=== PATIENT | male | born 1960 | race Caucasian/White ===

== ENCOUNTER 2018-03-16 09:27 | Inpatient (IN) | payer OTHER ==
[2018-03-16 10:17] LABS: Absolute Lymphocytes (CBC) 1.2 K/uL (0.7-4.9); Absolute Neutrophil 13.8 K/uL (1.8-8.0); Basophils % 0.1 % (0-1.3); Hematocrit 46.7 % (39.6-49.0); Lymphocytes % 6.8 % (15.3-44.8); MPV 8.7 fL (7.6-11.3); Monocytes % 11.6 % (3.3-12.3); RBC Red Blood Cell Count 5.16 M/uL (4.33-5.43)
[2018-03-16 10:23] LABS: Protime INR 1.32
--- NOTE | 2018-03-16 10:25 | RAD REPORT ---
EXAM DESCRIPTION: Yulisa Single View03/16/2018 10:15 am CLINICAL HISTORY: Shortness of breath COMPARISON: 2016 FINDINGS: The lungs appear clear of acute infiltrate. A calcified granuloma is present within the l eft lung. The heart is normal size IMPRESSION: No acute abnormalities displayed
[2018-03-16 10:44] LABS: ALT/SGPT 45 U/L (12-78); AST/SGOT 31 U/L (15-37); Albumin 3.6 g/dL (3.4-5.0); Alkaline Phosphatase 91 U/L (45-117); BUN Blood Urea Nitrogen 15 mg/dL (7-18); Bicarbonate 30 mmol/L (21-32); Bilirubin Direct 0.4 mg/dL (0-0.2); Bilirubin Total 1.1 mg/dL (0.2-1.0); Glucose Level 349 mg/dL (74-106); NT PRO-BNP 187 pg/mL (<125); Potassium 4.1 mmol/L (3.5-5.1); Protein, Total 8.3 g/dL (6.4-8.2); Sodium Level 135 mmol/L (136-145); Troponin (Emerg Dept Use Only) < 0.02 ng/mL (0.0-0.045)
[2018-03-16 10:46] LABS: Magnesium 1.4 mg/dL (1.8-2.4)
[2018-03-16] MEDS ORDERED: NA CHLORIDE 0.9% 1,000 ML ONE ×3 (10:50→12:35)
[2018-03-16] MEDS ORDERED: Magnesium Sulfate 2gm IVPB 2 G/50 ML BAG IV ONE (11:05)
[2018-03-16] MEDS ORDERED: INSULIN -REGULAR HUMAN 50 UNIT/0.5 ML ML ONE (11:05)
[2018-03-16] MEDS ORDERED: VANCOMYCIN 1 GM/250 ML BAG ONE (11:05)
[2018-03-16] MEDS ORDERED: CEFEPIME 1 GM/100 ML BAG IV ONE (11:06)
[2018-03-16 11:15] LABS: Urine Bacteria 20-50 /HPF (NONE SEEN); Urine Culture Reflex Order REFLEXED; Urine RBC <5 /HPF (NONE SEEN)
--- NOTE | 2018-03-16 11:39 | EDPHYS ---
Physician Documentation [facility] Name: Salas Srivastava Age: 58 yrs Sex: Male : 1960 Arrival Date: 03/16/2018 Time: 09:31 Bed 19 Private MD: TONIE WATTS ED Physician Casey Chen HPI: 03/16 11:42 This 58 yrs old Male presents to ER via Ambulatory with complaints of Flu jr8 Symptoms. 11:42 Patient stated that he has had fatigue, chills, decreased appetite, and general sense jr8 of not feeling well over the past week. Low grade fevers on/off. Denies CP, SOB, N/V, Abd pain. Stated that he has tried OTC medicine which help in the short term but still not feeling better . Severity of symptoms: At their worst the symptoms were moderate in the emergency department the symptoms are unchanged. It is unknown whether or not the patient has had similar symptoms in the past. The patient has not recently seen a physician. Historical: - Allergies: 09:42 PENICILLINS; ss - Home Meds: 09:42 metformin 1,000 mg Oral tab 1 tab 2 times per day [Active]; Lisinopril Oral [Active]; ss pantoprazole oral oral [Active]; amlodipine oral [Active]; - PMHx: 09:42 COPD; Diabetes - NIDDM; Hypertension; Sleep Apnea; ss - Immunization history:: Adult Immunizations up to date. - Social history:: Smoking status: Patient/guardian denies using tobacco, the patient reports quitting approximately 3 years ago. - Ebola Screening: : Patient denies exposure to infectious person Patient denies travel to an Ebola-affected area in the 21 days before illness onset. ROS: 11:42 Eyes: Negative for injury, pain, redness, and discharge, ENT: Negative for injury, jr8 pain, and discharge, Neck: Negative for injury, pain, and swelling, Cardiovascular: Negative for chest pain, palpitations, and edema, Respiratory: Negative for shortness of breath, cough, wheezing, and pleuritic chest pain, Abdomen/GI: Negative for abdominal pain, nausea, vomiting, diarrhea, and constipation, Back: Negative for injury and pain, MS/Extremity: Negative for injury and deformity, Skin: Negative for injury, rash, and discoloration, Neuro: Negative for headache, weakness, numbness, tingling, and seizure. 11:42 Constitutional: Positive for chills, fatigue, fever, malaise, poor PO intake. Exam: 11:42 Eyes: Pupils equal round and reactive to light, extra-ocular motions intact. Lids and jr8 lashes normal. Conjunctiva and sclera are non-icteric and not injected. Cornea within normal limits. Periorbital areas with no swelling, redness, or edema. ENT: Nares patent. No nasal discharge, no septal abnormalities noted. Tympanic membranes are normal and external auditory canals are clear. Oropharynx with no redness, swelling, or masses, exudates, or evidence of obstruction, uvula midline. Mucous membranes moist. Neck: Trachea midline, no thyromegaly or masses palpated, and no cervical lymphadenopathy. Supple, full range of motion without nuchal rigidity, or vertebral point tenderness. No Meningismus. Respiratory: Lungs have equal breath sounds bilaterally, clear to auscultation and percussion. No rales, rhonchi or wheezes noted. No increased work of breathing, no retractions or nasal flaring. Abdomen/GI: Soft, non-tender, with normal bowel sounds. No distension or tympany. No guarding or rebound. No evidence of tenderness throughout. Back: No spinal tenderness. No costovertebral tenderness. Full range of motion. Skin: Warm, dry with normal turgor. Normal color with no rashes, no lesions, and no evidence of cellulitis. MS/ Extremity: Pulses equal, no cyanosis. Neurovascular intact. Full, normal range of motion. Neuro: Awake and alert, GCS 15, oriented to person, place, time, and situation. Cranial nerves II-XII grossly intact. Motor strength 5/5 in all extremities. Sensory grossly intact. Cerebellar exam normal. Normal gait. 11:42 Cardiovascular: Rate: tachycardic, Rhythm: regular, Pulses: Pulses are 2+ in right radial artery and left radial artery. Heart sounds: normal, normal S1and S2, no S3 or S4, no murmur, no rub, no gallop, Edema: is not appreciated, JVD: is not appreciated. Vital Signs: 09:42 BP 138 / 98; Pulse 125; Resp 22; Temp 98.8(TE); Pulse Ox 90% on R/A; Weight 113.4 kg; ss Height 5 ft. 11 in. (180.34 cm); Pain 4/10; 11:00 BP 133 / 88; Pulse 99; Resp 20; Pulse Ox 94% on 2 lpm NC; Pain 0/10; em 11:21 Temp 99.5(O); em 12:17 BP 120 / 75; Pulse 91; Resp 18; Pulse Ox 95% on 2 lpm NC; Pain 0/10; em 12:57 BP 121 / 79; Pulse 89; Resp 18; Temp 99.2(O); Pulse Ox 96% on 2 lpm NC; Pain 0/10; em 09:42 Body Mass Index 34.87 (113.40 kg, 180.34 cm) ss MDM: 09:46 Patient medically screened. [facility] 11:42 Differential Diagnosis sepsis, flu, UTI, Pneumonia, cellulitis, abdominal infection, jr8 meningitis, bacteremia . Data reviewed: vital signs, nurses notes, lab test result(s), EKG, radiologic studies, plain films, and as a result, I will admit patient. Data interpreted: Pulse oximetry: on 2L(s) per nasal canula, is 94 %. Interpretation: acceptable. Counseling: I had a detailed discussion with the patient and/or guardian regarding: the historical points, exam findings, and any diagnostic results supporting the discharge/admit diagnosis, lab results, radiology results, the need for further work-up and treatment in the hospital. Physician consultation: Josh Stauffer MD was called at 11:46, was contacted at 11:46, regarding admission, to the telemetry unit. consult, patient's condition, and will see patient in ED. ED course: Patient case discussed with patient and need for admission for sepsis secondary to bacteremia without defined cause as of yet. Patient is good with this. . 03/16 09:43 Order name: Flu 03/16 09:45 Order name: Basic Metabolic Panel 03/16 09:45 Order name: CBC with Diff 03/16 09:45 Order name: LFT's 03/16 09:45 Order name: Magnesium 03/16 09:45 Order name: NT PRO-BNP 03/16 09:45 Order name: PT-INR 03/16 09:45 Order name: Troponin (emerg Dept Use Only) 03/16 09:45 Order name: Blood Culture Adult (2) [facility] 03/16 09:46 Order name: Lactate [facility] 03/16 10:21 Order name: CBC with Automated Diff; Complete Time: 10:37 EDMS 03/16 10:24 Order name: Influenza Screen (A ; Complete Time: 10:37 EDMS 03/16 10:40 Order name: Lactate; Complete Time: 10:46 EDMS 03/16 10:45 Order name: Protime (+INR); Complete Time: 10:46 EDMS 03/16 09:45 Order name: XRAY Chest (1 view) [facility] 03/16 10:25 Order name: RAD; Complete Time: 10:37 EDMS 03/16 10:46 Order name: Basic Metabolic Panel; Complete Time: 10:47 EDMS 03/16 10:46 Order name: Liver (Hepatic) Function; Complete Time: 10:47 EDMS 03/16 10:46 Order name: Troponin (Emerg Dept Use Only); Complete Time: 10:47 EDIN 03/16 10:46 Order name: NT PRO-BNP; Complete Time: 10:47 EDMS 03/16 10:46 Order name: Magnesium; Complete Time: 10:47 EDIN 03/16 10:46 Order name: Urine Microscopic Only [facility] 03/16 10:48 Order name: Procalcitonin [facility] 03/16 11:08 Order name: Urine Dipstick--Ancillary (enter results) 03/16 11:15 Order name: Urine Microscopic Only; Complete Time: 11:16 EDIN 03/16 11:32 Order name: Procalcitonin; Complete Time: 11:34 [facility] 03/16 11:56 Order name: Urine Dipstick-Ancillary; Complete Time: 11:59 03/16 09:45 Order name: EKG; Complete Time: 09:47 [facility] 03/16 09:45 Order name: Cardiac monitoring; Complete Time: 10:11 03/16 09:45 Order name: EKG - Nurse/Tech; Complete Time: 10:12 03/16 09:45 Order name: IV Saline Lock; Complete Time: 10:11 03/16 09:45 Order name: Labs collected and sent; Complete Time: 10:11 03/16 09:45 Order name: O2 Per Protocol; Complete Time: 10:11 01/25 09:45 Order name: O2 Sat Monitoring; Complete Time: Administered Medications: 10:42 Drug: NS 0.9% 1000 ml Route: IV; Rate: 1000 ml; Site: right wrist; ss 11:48 Follow up: IV Status: Completed infusion; IV Intake: 1000ml em 11:05 Drug: NS 0.9% 1000 ml Route: IV; Rate: 1000 ml; Site: right wrist; em 12:20 Follow up: IV Status: Completed infusion; IV Intake: 1000ml em 11:05 Drug: Magnesium Sulfate 2 grams Route: IVPB; Infused Over: 2 hrs; Site: right wrist; em 12:13 Follow up: Response: No adverse reaction; IV Status: Completed infusion; IV Intake: em 100ml 11:07 Drug: Insulin Regular Human 10 units {Co-Signature: em (Hussain Silva LVN).} Route: ss Sub-Q; Site: left lower abdomen; 12:12 Follow up: Response: No adverse reaction em 11:20 Drug: Cefepime 1 grams Route: IVPB; Rate: 200 ml/hr; Infused Over: 30 mins; Site: left em forearm; 11:48 Follow up: Response: No adverse reaction; IV Status: Completed infusion; IV Intake: em 100ml 11:48 Drug: Tylenol 1000 mg Route: PO; em 12:12 Follow up: Response: No adverse reaction em 12:12 Drug: vancoMYCIN 1 grams Route: IVPB; Infused Over: 2 hrs; Site: right wrist; em 12:34 Drug: NS 0.9% 1000 ml Route: IV; Rate: 1 bolus; Site: right wrist; em 13:00 Follow up: IV Status: Infusion continued upon admission; IV Intake: 500ml em Point of Care Testing: Blood Glucose: 12:57 Blood Glucose: 248 mg/dL; em Ranges: Critical Glucose Levels:Adult <50 mg/dl or >400 mg/dl <40 mg/dl or >180 mg/dl Disposition: 16:46 Co-signature as Attending Physician, Casey Chen MD. ma2 Disposition: 03/16/18 11:39 Hospitalization ordered by Josh Stauffer for Inpatient Admission. Preliminary diagnosis is Sepsis . - Bed requested for Telemetry/MedSurg (Inpatient). - Status is Inpatient Admission. em - Condition is Stable. - Problem is new. - Symptoms have improved. UTI on Admission? Yes Critical care time excluding procedures: 11:47 Critical care time: Bedside Care: 20 minutes, Consultation: 10 minutes. Total time: 30 jr8 minutes Signatures: Dispatcher [employer] NKECHI Silva, Hussain, SAMPLE TESTER SAMPLE TESTER em Sonia De La O, MIGUELITO RN ss Toby Rey PA PA jr8 Casey Chen MD MD ma2 Nikia Dowling Hussain Silva SAMPLE TESTER em Corrections: (The following items were deleted from the chart) 12:21 11:39 Hospitalization Ordered by Josh Stauffer MD for Inpatient Admission. Preliminary eb diagnosis is Sepsis . Bed requested for Telemetry/MedSurg (Inpatient). Status is Inpatient Admission. Condition is Stable. Problem is new. Symptoms have improved. UTI on Admission? Yes. jr8 13:24 12:21 03/16/2018 11:39 Hospitalization Ordered by Jsoh Stauffer MD for Inpatient em Admission. Preliminary diagnosis is Sepsis . Bed requested for Telemetry/MedSurg (Inpatient). Status is Inpatient Admission. Condition is Stable. Problem is new. Symptoms have improved. UTI on Admission? Yes. eb
--- NOTE | 2018-03-16 11:39 | ER ---
Nurse's Notes [facility] Name: Salas Srivastava Age: 58 yrs Sex: Male : 1960 Arrival Date: 03/16/2018 Time: 09:31 Bed 19 Private MD: TONIE WATTS Diagnosis: Sepsis Presentation: 03/16 09:39 Presenting complaint: Patient states: "I think I have the flu". Pt reports body aches, ss fatigue and fever x 6 days. Transition of care: patient was not received from another setting of care. Onset of symptoms was March 10, 2018. Risk Assessment: Do you want to hurt yourself or someone else? Patient reports no desire to harm self or others. Initial Sepsis Screen: Does the patient meet any 2 criteria? No. Patient's initial sepsis screen is negative. Does the patient have a suspected source of infection? No. Patient's initial sepsis screen is negative. Care prior to arrival: None. 09:39 Method Of Arrival: Ambulatory ss 09:39 Acuity: ESVIN 2 ss Historical: - Allergies: 09:42 PENICILLINS; ss - Home Meds: 09:42 metformin 1,000 mg Oral tab 1 tab 2 times per day [Active]; Lisinopril Oral [Active]; ss pantoprazole oral oral [Active]; amlodipine oral [Active]; - PMHx: 09:42 COPD; Diabetes - NIDDM; Hypertension; Sleep Apnea; ss - Immunization history:: Adult Immunizations up to date. - Social history:: Smoking status: Patient/guardian denies using tobacco, the patient reports quitting approximately 3 years ago. - Ebola Screening: : Patient denies exposure to infectious person Patient denies travel to an Ebola-affected area in the 21 days before illness onset. Screenin:00 Abuse screen: Denies threats or abuse. Nutritional screening: No deficits noted. ss Tuberculosis screening: No symptoms or risk factors identified. Fall Risk None identified. Assessment: 09:51 General: Appears in no apparent distress. uncomfortable, Behavior is calm, cooperative, em Reports chills for >3 days, feeling ill for > 3 days. Pain: Denies pain. Neuro: Level of Consciousness is awake, alert, obeys commands, Oriented to person, place, time, situation. Cardiovascular: Denies chest pain. Respiratory: Reports shortness of breath on exertion Airway is patent Respiratory effort is even, unlabored, Respiratory pattern is regular, symmetrical, Breath sounds are clear bilaterally. Derm: Skin is intact, Skin is diaphoretic, Skin is pale. Musculoskeletal: Range of motion: intact in all extremities. Vital Signs: 09:42 BP 138 / 98; Pulse 125; Resp 22; Temp 98.8(TE); Pulse Ox 90% on R/A; Weight 113.4 kg; ss Height 5 ft. 11 in. (180.34 cm); Pain 4/10; 11:00 BP 133 / 88; Pulse 99; Resp 20; Pulse Ox 94% on 2 lpm NC; Pain 0/10; em 11:21 Temp 99.5(O); em 12:17 BP 120 / 75; Pulse 91; Resp 18; Pulse Ox 95% on 2 lpm NC; Pain 0/10; em 12:57 BP 121 / 79; Pulse 89; Resp 18; Temp 99.2(O); Pulse Ox 96% on 2 lpm NC; Pain 0/10; em 09:42 Body Mass Index 34.87 (113.40 kg, 180.34 cm) ED Course: 09:31 Patient arrived in ED. sb2 09:31 TONIE WATTS is Private Physician. sb2 09:40 Triage completed. ss 09:42 Arm band placed on right wrist. ss 09:44 Sonia De La O, MIGUELITO is Primary Nurse. ss 09:46 Toby Rey PA is PHCP. jr8 09:46 Casey Chen MD is Attending Physician. jr8 09:50 Flu and/or RSV swab sent to lab. 3 10:00 Patient has correct armband on for positive identification. Placed in gown. Bed in low ss position. Call light in reach. Side rails up X2. dark room attendant on. Pulse ox on. NIBP on. 10:04 Initial lab(s) drawn, by me, sent to lab. First set of blood cultures drawn by me. 3 Inserted saline lock: 20 gauge in right forearm, using aseptic technique. Blood collected. 10:24 EKG done, by game technician. reviewed by Toby SHAH. at1 11:02 Urine collected: clean catch specimen, tea colored. dh3 11:38 Josh Stauffer MD is Hospitalizing Provider. jr8 13:21 No provider procedures requiring assistance completed. Patient admitted, IV remains in em place. Administered Medications: 10:42 Drug: NS 0.9% 1000 ml Route: IV; Rate: 1000 ml; Site: right wrist; ss 11:48 Follow up: IV Status: Completed infusion; IV Intake: 1000ml em 11:05 Drug: NS 0.9% 1000 ml Route: IV; Rate: 1000 ml; Site: right wrist; em 12:20 Follow up: IV Status: Completed infusion; IV Intake: 1000ml em 11:05 Drug: Magnesium Sulfate 2 grams Route: IVPB; Infused Over: 2 hrs; Site: right wrist; em 12:13 Follow up: Response: No adverse reaction; IV Status: Completed infusion; IV Intake: em 100ml 11:07 Drug: Insulin Regular Human 10 units {Co-Signature: em (Hussain Silva LVN).} Route: ss Sub-Q; Site: left lower abdomen; 12:12 Follow up: Response: No adverse reaction em 11:20 Drug: Cefepime 1 grams Route: IVPB; Rate: 200 ml/hr; Infused Over: 30 mins; Site: left em forearm; 11:48 Follow up: Response: No adverse reaction; IV Status: Completed infusion; IV Intake: em 100ml 11:48 Drug: Tylenol 1000 mg Route: PO; em 12:12 Follow up: Response: No adverse reaction em 12:12 Drug: vancoMYCIN 1 grams Route: IVPB; Infused Over: 2 hrs; Site: right wrist; em 12:34 Drug: NS 0.9% 1000 ml Route: IV; Rate: 1 bolus; Site: right wrist; em 13:00 Follow up: IV Status: Infusion continued upon admission; IV Intake: 500ml em Point of Care Testing: Blood Glucose: 12:57 Blood Glucose: 248 mg/dL; em Ranges: Intake: 11:48 IV: 100ml; Total: 100ml. em 11:48 IV: 1000ml; Total: 1100ml. em 12:13 IV: 100ml; Total: 1200ml. em 12:20 IV: 1000ml; Total: 2200ml. em 13:00 IV: 500ml; Total: 2700ml. em Outcome: 11:39 Decision to Hospitalize by Provider. jr8 13:21 Admitted to Med/surg accompanied by tech, via wheelchair, room 230, with oxygen, with em chart, Report called to MIGUELITO Damico 13:21 Condition: good 13:21 Instructed on the need for admit, Demonstrated understanding of instructions. 13:24 Patient left the ED. em Signatures: Hussain Silva LVN PNEUMATIC TUBE FITTER em Sonia De La O RN RN ss Toby Rey, PABLO PA jr8 Marylu Anderson, rib cutter EKG Tat1 Lotus Anderson 3 Adenike Bustillos 2 Hussain WADEN em
[2018-03-16] MEDS ORDERED: ACETAMINOPHEN 500 MG TAB ONE (11:48)
--- NOTE | 2018-03-16 11:52 | EKG ---
Test Date: 2018-03-16 Test Time: 10:13:02 Color Depositing Machine Tender: MIKE MEASUREMENT RESULTS: Intervals: Rate: 109 NV: 136 QRSD: 154 QT: 366 QTc: 492 [place]: P: 72 NV: 136 QRS: -86 T: 55 INTERPRETIVE STATEMENTS: Sinus tachycardia Right bundle branch block Left anterior fascicular block Bifascicular block Abnormal ECG Compared to ECG 08/08/2015 00:03:49 Left anterior fascicular block now present Bifascicular block now present Ventricular premature complex(es) no longer present Left-axis deviation no longer present Electronically Signed On 03-16-18 11:51:11 AUTO TOP MECHANIC by Marco Antonio Armando
[2018-03-16 11:56] LABS: Urine Blood 1+ (NEG); Urine Glucose 2+ (NEG); Urine Protein 3+ (NEG)
[2018-03-16] MEDS ORDERED: VANCOMYCIN/NS 1 gm 1 GM/250 ML BAG IVPB SCH (13:06)
[2018-03-16] MEDS ORDERED: VANCOMYCIN 2.75 GM in NA CHLORIDE 0.9% 500 ML IVPB ONE (14:00)
[2018-03-16 14:12] VITALS: BMI 35.4
[2018-03-16] MEDS: NA CHLORIDE 0.9% 1,000 ML IV SCH ×2 (14:33→21:50)
[2018-03-16] MEDS ORDERED: GLUCAGON 1 MG/VIAL IM PRN (15:36)
[2018-03-16] MEDS ORDERED: D50W 25 GM/50 ML SYRINGE IV PRN (15:36)
[2018-03-16] MEDS ORDERED: PNEUMOCOCCAL VACCINE 0.5 ML IMVAC ONE (16:00)
[2018-03-16] MEDS ORDERED: INFLUENZA VACCINE (for 3y+) 0.5 ML DOSE IMVAC ONE (16:00)
--- NOTE | 2018-03-16 16:23 | P.INFCA ---
Sepsis Focused Assessment - Sepsis Screen Result Severe Sepsis: Positive Septic Shock: Negative - Vital Signs Reviewed: Yes Temperature: 99.1 F Heart rate: 92 Blood Pressure: 146/85 Respiratory Rate: 18 O2 Sat by Pulse Oximetry: 96 - Examination Date exam was performed: 03/16/18 Time exam was performed: 16:19 Heart: Regular rate/rhythm, S1, S2 Lungs: Decreased breath sounds, Accessory muscle use Peripheral pulses: 2+ Slightly diminished Peripheral pulse location: Pedal Capillary refill: <2 Seconds Skin examination: Normal turgor
[2018-03-16] MEDS: INSULIN -REGULAR HUMAN 50 UNIT/0.5 ML ML SQ SCH ×2 (16:30→21:46)
[2018-03-16] MEDS: ACETAMINOPHEN 500 MG TAB PO PRN ×2 (16:32→23:35)
[2018-03-16] MEDS: PANTOPRAZOLE 40MG TABLET PO SCH (16:33)
[2018-03-16] MEDS: IPRATROPIUM BROM 0.5MG/2.5ML NEB PRN (20:15)
[2018-03-16] MEDS ORDERED: CEFEPIME 2 GM VIAL IV SCH (21:00)
[2018-03-17] MEDS: IPRATROPIUM BROM 0.5MG/2.5ML NEB PRN ×4 (01:35→20:45)
--- NOTE | 2018-03-17 02:40 | HP ---
Date of Admission: 03/16/2018 Chief Complaint: Shortness of breath, fatigue. Code Status: Full. Consultants: Dr. Carranza with Pulmonology. History Of Present Illness: The patient is a 58-year-old male with past medical history of COPD, oxy gen dependent; diabetes; hypertension; obstructive sleep apnea; gastroesophageal reflux disease; who was in his usual state of health until several days prior to admission when the patient had sudden on set of fatigue, decreased appetite, having chills, feeling like he has flu. The patient denies any i ll contacts. The patient's symptoms were constant, moderate, progressively worsening. No increased shortness of breath. No cough. No sputum production. The patient came in to the ER for further alton luation of his symptoms. Denies any weight loss. In the ER, his vital signs showed him to be tachyc ardic and tachypneic. He was 90% on room air. His workup revealed magnesium of 1.4. Procalcitonin was elevated at 11.7. Lactic acid was 2.1. WBC was elevated at 16.9. UA was positive for bacteria. Chest x-ray, however, was negative for any infiltrates. The patient was then referred for admissio n. When seen in the ER, he was awake, alert, oriented x3, in some mild distress. Past Medical History: COPD; hypertension; hyperlipidemia; diabetes mellitus type 2, qld-[id number]-lktr iring; obstructive sleep apnea, on CPAP; and morbid obesity. Surgical History: Exploratory laparotomy in 1967. Allergies: PENICILLIN. Medications: List reviewed. Social History: The patient quit smoking in 2016. No use of alcohol. No illicit drug use. The pat ient is independent in his activities of daily living. Family History: The patient denies any significant family history. No premature coronary artery dis ease. Review of Systems: An 11-point system reviewed and negative except as per HPI. Physical Examination: Vital Signs: Temperature 98.8, heart rate 125, blood pressure 138/98, respirations 22, and O2 of 90% on room air. General: Awake, alert, oriented x3, ill-appearing male, obese. HEENT: Normocephalic, atraumatic. PERRLA. EOMI. Dry mucous membranes. Oropharynx is clear. Poor dentition. Conjunctivae are anicteric. Neck: Supple. No JVD. Trachea midline. CV: S1, S2. Sinus tachycardia. Peripheral pulses present. No murmurs. Respiratory: Diminished breath sounds. No wheezing heard. The patient is tachypneic. Use of acces rishi muscles is present. Gastrointestinal: Abdomen is soft, nontender, nondistended. Positive bowel sounds. No guarding or rigidity. Extremities: No clubbing, cyanosis, or edema. No calf tenderness. Neurologic: Cranial nerves 2 through 12 intact grossly. No focal neurological deficit. Speech is n ormal. Strength is 5/5, bilateral upper and lower extremities. Sensation intact to light touch. Skin: No rashes. Normal skin turgor. Psychiatric: Mood is okay. Affect is full. Insight and judgment are good. Laboratory Data: Sodium 135, potassium 4.1, chloride 97, CO2 of 30, BUN 15, creatinine 1.26, and glu cose 349. Lactic acid 2.1. Repeat lactic acid is 1.9, calcium 9.2, magnesium 1.4, total bilirubin 1 .1, direct bilirubin 0.4, AST 31, ALT 45, and alkaline phosphatase 91. Troponin less than 0.02. BNP 187, albumin 3.6, procalcitonin 11.7. INR 1.32. WBC 16.9, H and H 15.7 and 46.7, platelets 207, an d neutrophils 81%. UA; 1+ ketone, 1+ blood, negative nitrite, negative leukocyte esterase, less than 5 wbc's, less than 5 rbc's, 20 to 50 bacteria, and 3+ protein. Influenza screen negative. EKG show s sinus tachycardia, right bundle-branch block, left anterior fascicular block, bifascicular block, r ate of 109. Assessment And Plan: A 58-year-old male with; 1.Sepsis. The patient is tachycardic, rate of 125, respirations 22. White count is elevated at 16, 000. Procalcitonin is 11. Lactate is elevated. Source of infection is unclear, maybe urinary tract infection or possible early pneumonia. The patient has received 30 mL/kg fluid bolus. The patient will be started on broad-spectrum IV antibiotics. Largely unknown source. We will obtain almanzar cultur es. 2.Chronic obstructive pulmonary disease, oxygen requiring. The patient does sound very tight. We w ill start on nebulizer treatments. 3.Hby-lzmgloh-pkubzavbb diabetes mellitus type 2 with hyperglycemia. We will start on sliding scale with insulin. 4.Essential hypertension, stable. We will hold blood pressure medications for now due to sepsis. 5.Mixed hyperlipidemia. Continue statin. 6.Obstructive sleep apnea. We will have Respiratory give him CPAP at night. The patient is unable to have his CPAP from home brought in. 7.Obesity, body mass index greater than 30. 8.Hypomagnesemia. We will replace and monitor. 9.Gastrointestinal and deep venous thrombosis prophylaxis with PPI and Lovenox. Plan: Admit the ruperto manuelingris to Med-Surg, place as inpatient with remote cardiac telemetry. 10.Bifascicular block. /SUREKHA Voice ID: [id number]
[2018-03-17] MEDS: NA CHLORIDE 0.9% 1,000 ML IV SCH ×2 (05:29→10:00)
[2018-03-17 06:09] LABS: Potassium 4.1 mmol/L (3.5-5.1)
[2018-03-17] MEDS: INSULIN -REGULAR HUMAN 50 UNIT/0.5 ML ML SQ SCH ×4 (07:30→21:58)
[2018-03-17] MEDS: ACETAMINOPHEN 500 MG TAB PO PRN ×2 (08:10→17:31)
[2018-03-17] MEDS: PANTOPRAZOLE 40MG TABLET PO SCH ×2 (08:10→17:31)
[2018-03-17] MEDS: VANCOMYCIN 2 GM in NA CHLORIDE 0.9% 500 ML IVPB SCH (08:11)
--- NOTE | 2018-03-17 10:49 | P.CNS ---
Date of Consult: 03/17/18 Chief Complaint: Fever and chills History of Present Illness: Patient is 52 years of age well known to me with a history of COPD he has been doing very well for the past couple of years apparently he was at [employer] developed sudden onset of fever chills continued to get progressively worse denies any cough sputum hemoptysis chest pain worsening shortness of breath he has a mild diarrhea denies any urinary tract symptoms admitted to the hospital he looks well he has been having a borderline temperature although is influenza A and B screen were both negative blood cultures are all negative is chest x-rays clear Allergies Penicillins Adverse Reaction (Severe, Verified 08/09/15 00:10) Anaphylaxis Home Medications: Metformin HCl [Glucophage] 1,000 mg PO BID 08/01/15 Pantoprazole [Protonix Tab*] 40 mg PO BID #60 tab 08/13/15 Amlodipine [Norvasc] 10 mg PO DAILY 03/16/18 Lisinopril [Prinivil*] 5 mg PO DAILY 03/16/18 - Past Medical/Surgical History Diabetic: Yes -: COPD, Oxygen dependent -: DM-2 -: HTN -: Hyperlipidemia -: RACHEL, Compliant with RACHEL -: Obesity -: Tobacco abuse, Quit recently. -: Bowel surgery due to infection 1967 -: Stomach Surgery Nov 2015 -: Colonoscopy 2015 Psychosocial/ Personal History: disabled, -31 years, 4 children - Family History Mother Medical History: Heart disease, Hypertension, Diabetes - Social History Smoking Status: Unknown if ever smoked Alcohol use: No CD- Drugs: No Caffeine use: Yes Place of Residence: Home Review of Systems 10-point ROS is otherwise unremarkable Physical Examination Temp Pulse Resp BP Pulse Ox 97 F 91 H 20 138/78 99 03/17/18 08:00 03/17/18 08:00 03/17/18 08:00 03/17/18 08:00 03/17/18 08:00 General: Alert, In no apparent distress, Oriented x3 Neck: Supple Respiratory: Clear to auscultation bilaterally, Diminished Cardiovascular: No edema, Regular rate/rhythm, Normal S1 S2 Gastrointestinal: Normal bowel sounds, Soft and benign - Problems (1) Fever and chills Current Visit: Yes Status: Acute Plan: Patient is 58 years of age with a history of COPD compliant and is doing very well has not had an exacerbation for the past few years he also has a noninvasive vent at home patient has quit smoking a long time ago admitted with sudden onset of fever and chills chest x-rays clear white count is mildly elevated pro calcitonin level is also elevated blood cultures are negative urinalysis is negative there is no abdominal discomfort he is not coughing up any appears to have sepsis with no obvious reason suggest TB change to p.o. levofloxacin repeat a PA and lateral chest x-ray possible discharge tomorrow to resume his home medications
[2018-03-17] MEDS: CEFEPIME/SWI 2gm 2 GM/20 ML SYR IV SCH ×2 (10:52→21:59)
--- NOTE | 2018-03-17 15:49 | RAD REPORT ---
EXAM DESCRIPTION: RAD - Chest Pa And Lat (2 Views) - 03/17/2018 3:30 pm CLINICAL HISTORY: Pneumonia, shortness of breath COMPARISON: March 16 TECHNIQUE: PA and lateral views of the chest were obtained. FINDINGS: The lungs are clear of a focal infiltrate. No new or progressive lung parenchymal process. Left base granuloma has not changed. Heart size is normal and central vasculature is within normal limits. No pleural effusion or pneumothorax seen. No acute bony finding noted. No aortic abnormal ity. IMPRESSION: No acute cardiopulmonary process. No new or progressive finding.
--- NOTE | 2018-03-17 17:12 | PN ---
Date of Progress Note: 03/17/2018 Subjective: The patient seen and examined. Chart reviewed and case discussed with RN and Dr. Janie montero. The patient states his breathing is significantly better. Overall feels improved. Medications: List reviewed. Physical Examination: Vital Signs: Temperature 97, heart rate 91, blood pressure 138/70, respirations 20, O2 99% on 2 L vi a nasal cannula. General: Awake, alert, oriented x3, obese male, slightly ill appearing. CV: S1, S2. Regular rate and rhythm. Peripheral pulses present. Respiratory: Diminished breath sounds. Minimal wheezing. No use of accessory muscles. Gastrointestinal: Abdomen is soft, nontender, nondistended. Positive bowel sounds. Extremities: No clubbing, cyanosis, or edema. Neurologic: Nonfocal. Laboratory Data: Potassium 4.1, magnesium is 2. Blood cultures no growth to date. Urine culture no growth. Assessment: A 58-year-old male with: 1.Sepsis, improving. The patient is not tachycardic, afebrile. Last temperature spike was 101.6 ye sterday afternoon. Cultures are negative. We will continue with IV fluids. We will decrease rate a nd follow up on cultures. 2.Chronic obstructive pulmonary disease, oxygen dependent. We will continue with nebulizer treatmen ts. 3.Diabetes mellitus type 2 non-insulin requiring with hyperglycemia. We will continue on sliding sc zachary insulin. Appreciate Dr. Carranza's input. 4.Essential hypertension, stable. 5.Mixed hyperlipidemia. Continue statin. 6.Obstructive sleep apnea. Continue CPAP at night. 7.Obesity. BMI greater than 30. 8.Hypomagnesemia, replaced. 9.Hypokalemia, corrected. We will continue to monitor. 10.Bifascicular block. 11.Gastrointestinal and deep venous thrombosis prophylaxis with PPI and Lovenox. Plan: Likely discharge in a.m. Repeat chest x-ray, CBC, CMP. SA/MODL Voice ID: [id number] Report ID: [id number]
[2018-03-18] MEDS: VANCOMYCIN 2 GM in NA CHLORIDE 0.9% 500 ML IVPB SCH (01:27)
[2018-03-18] MEDS: NA CHLORIDE 0.9% 1,000 ML IV SCH (01:27)
[2018-03-18] MEDS: ACETAMINOPHEN 500 MG TAB PO PRN (01:31)
[2018-03-18] MEDS: IPRATROPIUM BROM 0.5MG/2.5ML NEB PRN ×2 (02:16→07:36)
[2018-03-18 05:35] LABS: Absolute Lymphocytes (CBC) 0.9 K/uL (0.7-4.9); Absolute Monocytes 0.8 K/uL (0.1-1.3); Absolute Neutrophil 6.1 K/uL (1.8-8.0); Basophils % 0.2 % (0-1.3); Eosinophils % 1.4 % (0-4.4); Hematocrit 40.8 % (39.6-49.0); Lymphocytes % 11.4 % (15.3-44.8); MPV 8.8 fL (7.6-11.3); Monocytes % 10.2 % (3.3-12.3); RBC Red Blood Cell Count 4.43 M/uL (4.33-5.43)
[2018-03-18 06:00] LABS: BUN Blood Urea Nitrogen 12 mg/dL (7-18); Bicarbonate 30 mmol/L (21-32); Glucose Level 197 mg/dL (74-106); Potassium 4.1 mmol/L (3.5-5.1); Sodium Level 141 mmol/L (136-145)
[2018-03-18] MEDS: INSULIN -REGULAR HUMAN 50 UNIT/0.5 ML ML SQ SCH (07:30)
[2018-03-18] MEDS: PANTOPRAZOLE 40MG TABLET PO SCH (09:01)
[2018-03-18] MEDS: CEFEPIME/SWI 2gm 2 GM/20 ML SYR IV SCH (09:01)
[2018-03-18 09:03] VITALS: BP 145/86; TEMP 97.6
[2018-03-18 10:26] VITALS: O2SAT 97
--- NOTE | 2018-03-19 04:05 | DS ---
Date of Discharge: 03/18/2018 Admitting Diagnoses: 1.Sepsis. 2.Chronic obstructive pulmonary disease. 3.Wka-xtfbgvt-kmadthgxl diabetes, type 2 with hyperglycemia. 4.Essential hypertension. 5.Mixed hyperlipidemia. 6.Obstructive sleep apnea. 7.Obesity. 8.Hypomagnesemia. 9.Bifascicular block. 10.Urinary tract infection. Discharge Diagnoses: 1.Sepsis. 2.Bacteriuria, urinary tract infection. 3.Chronic obstructive pulmonary disease. 4.Acute bronchitis. 5.Diabetes mellitus, type 2, non-insulin requiring with hyperglycemia. 6.Essential hypertension. 7.Mixed hyperlipidemia, statin. 8.Obstructive sleep apnea. 9.Obesity, body mass index greater than 30. 10.Hypomagnesemia, replaced. 11.Hypokalemia, corrected. 12.Bifascicular block. Hospital Course: The patient is a 58-year-old male with a past medical history of COPD that is oxyge n dependent, diabetes, hypertension, sleep apnea, GERD, comes in with fever, chills, flu-like symptom s. The patient was found to be tachycardic, tachypneic, hypoxic on room air. His white blood cell c ount was 16.9. UA was positive for bacteria. Chest x-ray was negative. He was felt to be septic. White count was 16.9. He was tachycardic and tachypneic. Source of infection was bacteriuria and ac rah bronchitis. The patient was started on IV antibiotics. He was given fluid bolus per sepsis prot ocol. Procalcitonin was elevated at 11 and lactate was also elevated at 2.1, improved to 1.9. The p atient responded well to IV antibiotics. His white blood cell count normalized. He did have some el ectrolyte abnormalities, which were corrected including magnesium. Cultures were obtained, which andreina wed gram-positive cocci, 1 out of 4 bottles, which was likely a skin contaminant. The patient's seps is improved. His influenza screen was negative. His urine culture showed no growth. The patient wa s seen by job specification writer, Dr. Carranza. His repeat chest x-ray showed improvement. The patient was f eeling significantly better. He did not have any further fatigue, chills, or fever. He was then amb ulating well around his baseline. He was very limited in his mobility, able to get to the bathroom, and back to his bed. The patient was then stable for discharge and was cleared for discharge by Pulm onology. Discharge Instructions: Follow up with PCP in two days. Follow up with job specification writer, Dr. Carranza in two weeks. Return to ER for worsening condition. Diet: Diabetic diet. Activity: No strenuous activity. Medications: As per medication reconciliation list. Finish up the course of Levaquin. Physical Examination: General: Awake, alert, oriented x3. Obese male. CV: S1 and S2. Regular rate and rhythm. Respiratory: Diminished breath sounds. No wheezing. Gastrointestinal: Abdomen is soft, nontender, nondistended. Positive bowel sounds. Extremities: No clubbing, cyanosis, or edema. Neuro: Nonfocal. Total time spent discharging the patient was 33 minutes. MERCEDES Voice ID: [id number] Report ID: [id number]
== END 2018-03-18 11:49 | disposition home or self-care (01) | DRG 872 ==
LOC: ER 09:27 → ERHOLD 11:53 → 2ND 13:06
PROVIDERS: ADMIT Family Medicine; ATTEND Family Medicine
DX: A41.9 Sepsis, unspecified organism (principal); N39.0 Urinary tract infection, site not specified; E11.65 Type 2 diabetes mellitus with hyperglycemia; E83.42 Hypomagnesemia; E87.6 Hypokalemia; J20.9 Acute bronchitis, unspecified; E78.2 Mixed hyperlipidemia; I10 Essential (primary) hypertension; J44.9 Chronic obstructive pulmonary disease, unspecified; K21.9 Gastro-esophageal reflux disease without esophagitis; G47.33 Obstructive sleep apnea (adult) (pediatric); E66.9 Obesity, unspecified; Z68.35 Body mass index [BMI] 35.0-35.9, adult; Z99.81 Dependence on supplemental oxygen; Z23 Encounter for immunization
CPT/HCPCS: 36415; 71045; 71046; 80048; 80076; 81003; 81015; 82962; 83605; 83735; 83880; 84132; 84145; 84484; 85025; 85610; 87040; 87086; 87088; 87205; 87804; 90670; 93005; 94640; 94760; 96372; 99285; G0008; G0009; J0692; J3370; J3475; J7030; Q2035

== ENCOUNTER 2018-04-03 12:04 | Observation (INO) | payer OTHER ==
--- NOTE | 2018-04-03 13:53 | RAD REPORT ---
EXAM DESCRIPTION: RAD - Chest Single View - 04/03/2018 1:48 pm CLINICAL HISTORY: COPD Chest pain. COMPARISON: Chest Pa And Lat (2 Views) dated 03/17/2018; Chest Single View dated 03/16/2018; Chest Sin gle View dated 08/07/2015; Chest Single View dated 08/01/2015 FINDINGS: Portable technique limits examination quality. The lungs are grossly clear except for a calcified granuloma in the left lung base laterally. The hea rt is normal in size. No displaced fractures. IMPRESSION: No acute intrathoracic process suspected.
[2018-04-03 13:57] LABS: Absolute Lymphocytes (CBC) 2.1 K/uL (0.7-4.9); Absolute Monocytes 1.5 K/uL (0.1-1.3); Absolute Neutrophil 10.9 K/uL (1.8-8.0); Basophils % 0.6 % (0-1.3); Eosinophils % 0.4 % (0-4.4); Hematocrit 45.8 % (39.6-49.0); Lymphocytes % 14.4 % (15.3-44.8); MPV 8.7 fL (7.6-11.3); RBC Red Blood Cell Count 5.03 M/uL (4.33-5.43)
[2018-04-03 14:04] LABS: Protime INR 1.13
[2018-04-03] MEDS ORDERED: NA CHLORIDE 0.9% 1,000 ML ONE (14:12)
[2018-04-03 14:23] LABS: ALT/SGPT 28 U/L (12-78); AST/SGOT 18 U/L (15-37); Albumin 3.6 g/dL (3.4-5.0); Alkaline Phosphatase 94 U/L (45-117); BUN Blood Urea Nitrogen 13 mg/dL (7-18); Bicarbonate 30 mmol/L (21-32); Bilirubin Direct 0.2 mg/dL (0-0.2); Bilirubin Total 0.6 mg/dL (0.2-1.0); Glucose Level 148 mg/dL (74-106); Magnesium 1.8 mg/dL (1.8-2.4); NT PRO-BNP 49 pg/mL (<125); Potassium 4.3 mmol/L (3.5-5.1); Protein, Total 8.2 g/dL (6.4-8.2); Sodium Level 137 mmol/L (136-145); Troponin (Emerg Dept Use Only) < 0.02 ng/mL (0.0-0.045)
[2018-04-03 14:30] LABS: Blood Morphology Comment NOTED (NOT SEEN); Hypochromasia 1+; Platelet Estimate INCR; Platelets, Giant NOTED; Stomatocytes 1+; Urine White Blood Cell Casts OK
--- NOTE | 2018-04-03 15:14 | RAD REPORT ---
EXAM DESCRIPTION: CT - Stone Protocol - 04/03/2018 3:01 pm CLINICAL HISTORY: Flank pain. ABD PAIN COMPARISON: Thorax Wo Con dated 06/11/2015 TECHNIQUE: Axial images were obtained without oral or IV contrast. Lack of contrast limits solid org an and vascular assessment. The [id number] spans the entirety of the system partially obscuring uppermost abdomen and lung bases. Coronal reformatted images were obtained and reviewed. All CT scans are performed using dose optimization technique as appropriate and may include automated exposure control or mA/KV adjustment according to patient size. FINDINGS: The lung bases are emphysematous. There is a vague area of nodularity in the left base whi ch is only partially imaged on this study. Previous CT from 2016 demonstrated a calcified granuloma i n a similar position. Imaged portions of the liver and spleen show no suspicious findings on non-contrast imaging. The panc reas and adrenal glands are normal. No pathologic lymphadenopathy in the abdomen or pelvis. Punctate bilateral nephrolithiasis is seen. No hydronephrosis. No bowel obstruction, free air, free fluid or abscess. Sigmoid diverticulosis is present without dive rticulitis.The appendix is not identified as a discrete structure, however, no secondary findings of appendicitis are identified. No significant bony abnormality. Moderate right and small left fat containing inguinal hernias. IMPRESSION: Punctate bilateral nephrolithiasis without hydronephrosis. Sigmoid diverticulosis coli without diverticulitis.
[2018-04-03] MEDS ORDERED: CEFEPIME 1 GM/100 ML BAG IV ONE (15:41)
--- NOTE | 2018-04-03 16:11 | ER ---
Nurse's Notes [facility] Name: Salas Srivastava Age: 58 yrs Sex: Male : 1960 Arrival Date: 04/03/2018 Time: 12:08 Bed 8 Private MD: TONIE WATTS Diagnosis: Fever, unspecified;Sepsis, unspecified organism Presentation: 04/03 12:29 Presenting complaint: SOB, malaise, productive cough, chills, and loss of appetite x hb 2-3 days. Transition of care: patient was not received from another setting of care. Onset of symptoms was March 31, 2018. Risk Assessment: Do you want to hurt yourself or someone else? Patient reports no desire to harm self or others. Care prior to arrival: None. 12:29 Method Of Arrival: Ambulatory hb 12:29 Acuity: ESVIN 3 hb 17:16 Initial Sepsis Screen: Does the patient meet any 2 criteria? RR > 20 per min. HR > 90 bp bpm. Yes Does the patient have a suspected source of infection? Yes: Productive cough/pneumonia If YES to both, name of provider notified: Jimmy Benitez MD Triage Assessment: 12:30 General: Appears distressed, comfortable, obese, Behavior is calm, cooperative, bp appropriate for age. Pain: Denies pain. Historical: - Allergies: 12:31 PENICILLINS; hb - Home Meds: 15:37 acetazolamide 125 mg Oral tab [Active]; prednisone 20 mg Oral tab [Active]; metformin bp 1,000 mg Oral tab 1 tab 2 times per day [Active]; lisinopril 40 mg Oral tab 1 tab once daily for Hypertension [Active]; glimepiride 2 mg Oral tab [Active]; amlodipine oral [Active]; pantoprazole Oral [Active]; Albuterol Inhl [Active]; - PMHx: 15:37 COPD; Diabetes - NIDDM; Hypertension; Sleep Apnea; bp - Immunization history:: Adult Immunizations up to date. - Social history:: Smoking status: Patient/guardian denies using tobacco. - Ebola Screening: : No symptoms or risks identified at this time. Screenin:30 Abuse screen: Denies threats or abuse. Denies injuries from another. Nutritional bp screening: No deficits noted. Tuberculosis screening: No symptoms or risk factors identified. Fall Risk None identified. Assessment: 12:30 General: Appears distressed, comfortable, obese, Behavior is calm, cooperative, bp appropriate for age. Pain: Denies pain. Neuro: Level of Consciousness is awake, alert, obeys commands, Oriented to person, place, time, situation, Appropriate for age. Cardiovascular: Rhythm is sinus rhythm. Respiratory: Reports shortness of breath at rest Airway is patent Respiratory effort is even, labored, Respiratory pattern is regular, hyperventilation Breath sounds with wheezes bilaterally. GI: No signs and/or symptoms were reported involving the gastrointestinal system. : No signs and/or symptoms were reported regarding the genitourinary system. EENT: No deficits noted. Derm: No deficits noted. Musculoskeletal: Circulation, motion, and sensation intact. Range of motion: intact in all extremities. 14:25 Reassessment: ALL CURRENT ORDERS COMPLETED, RESULTS PENDING. bp Vital Signs: 12:28 BP 129 / 101; Pulse 109; Resp 20; Temp 98.7(O); Pulse Ox 92% on R/A; Pain 0/10; hb 14:00 BP 118 / 79; Pulse 79; Resp 14; Pulse Ox 96% ; bp 15:14 BP 111 / 73; Pulse 85; Resp 16; Pulse Ox 100% ; bp 17:24 BP 132 / 94; Pulse 93; Resp 20; Pulse Ox 98% on 3 lpm NC; bp ED Course: 12:08 Patient arrived in ED. mr 12:08 TONIE WATTS is Private Physician. mr 12:30 Patient has correct armband on for positive identification. Bed in low position. Call bp light in reach. Side rails up X2. 12:31 Triage completed. hb 12:31 Arm band placed on. hb 12:38 Derek Pena, RN is Primary Nurse. bp 12:39 Jimmy Benitez MD is Attending Physician. gs 12:58 EKG done, by automotive paint technician. reviewed by Jimmy Benitez MD. at1 13:34 Inserted saline lock: 20 gauge in right hand, using aseptic technique. bp 13:37 X-ray completed. Portable x-ray completed in exam room. Patient tolerated procedure sw well. 13:48 XRAY Chest (1 view) In Process Unspecified. EDMS 14:[address] via wheelchair. vr 15:03 CT Stone Protocol In Process Unspecified. EDMS 16:06 Shadia Mariano MD is Hospitalizing Provider. gs 17:16 No provider procedures requiring assistance completed. Patient admitted, IV remains in bp place. Administered Medications: 13:45 Drug: NS 0.9% 1000 ml Route: IV; Rate: 1 bolus; Site: right hand; bp 14:45 Follow up: IV Status: Completed infusion; IV Intake: 1000ml bp 15:35 Drug: Cefepime 1 grams Route: IVPB; Rate: 200 ml/hr; Infused Over: 30 mins; Site: right bp hand; 17:23 Follow up: IV Status: Completed infusion; IV Intake: 100ml bp Intake: 14:45 IV: 1000ml; Total: 1000ml. bp 17:23 IV: 100ml; Total: 1100ml. bp Outcome: 16:07 Decision to Hospitalize by Provider. gs 17:17 Admitted to Med/surg accompanied by tech, via stretcher, room 428, with oxygen, with bp chart, Report called to DARRION FARLEY 17:17 Condition: stable 17:17 Instructed on the need for admit. 17:28 Patient left the ED. bp Signatures: Dispatcher [employer] EDOH Javy, Olga Ziegler, Marylu Trejo, sewing machine operator paper bags EKG Tat1 Ale Aldrich Heather, MIGUELITO RN hb Jimmy Benitez MD MD Derek Pena, RN RN bp Corrections: (The following items were deleted from the chart) 12:29 12:28 BP 129 / 101; Pulse 109bpm; Resp 20bpm; Pulse Ox 90% RA; Temp 98.7F Oral; Pain hb 0/10; hb
--- NOTE | 2018-04-03 16:12 | EDPHYS ---
Physician Documentation [facility] Name: Salas Srivastava Age: 58 yrs Sex: Male : 1960 Arrival Date: 04/03/2018 Time: 12:08 Bed 8 Private MD: TONIE WATTS ED Physician Jimmy Benitez HPI: 04/03 15:35 This 58 yrs old Male presents to ER via Ambulatory with complaints of gs Fever,Dizziness, Decreased Appetite. 15:35 Onset: The symptoms/episode began/occurred yesterday. Modifying factors: there are no gs obvious modifying factors. Associated signs and symptoms: Pertinent positives: arthralgias, chills, cough, myalgias. Severity of symptoms: At their worst the symptoms were moderate in the emergency department the symptoms are unchanged. The patient has experienced similar episodes in the past, a few times. The patient has been recently been admitted at [facility], was discharged last week. Historical: - Allergies: 12:31 PENICILLINS; hb - Home Meds: 15:37 acetazolamide 125 mg Oral tab [Active]; prednisone 20 mg Oral tab [Active]; metformin bp 1,000 mg Oral tab 1 tab 2 times per day [Active]; lisinopril 40 mg Oral tab 1 tab once daily for Hypertension [Active]; glimepiride 2 mg Oral tab [Active]; amlodipine oral [Active]; pantoprazole Oral [Active]; Albuterol Inhl [Active]; - PMHx: 15:37 COPD; Diabetes - NIDDM; Hypertension; Sleep Apnea; bp - Immunization history:: Adult Immunizations up to date. - Social history:: Smoking status: Patient/guardian denies using tobacco. - Ebola Screening: : No symptoms or risks identified at this time. ROS: 15:35 All other systems are negative. gs Exam: 15:35 Head/Face: Normocephalic, atraumatic. Eyes: Pupils equal round and reactive to light, gs extra-ocular motions intact. Lids and lashes normal. Conjunctiva and sclera are non-icteric and not injected. Cornea within normal limits. Periorbital areas with no swelling, redness, or edema. ENT: Nares patent. No nasal discharge, no septal abnormalities noted. Tympanic membranes are normal and external auditory canals are clear. Oropharynx with no redness, swelling, or masses, exudates, or evidence of obstruction, uvula midline. Mucous membranes moist. Neck: Trachea midline, no thyromegaly or masses palpated, and no cervical lymphadenopathy. Supple, full range of motion without nuchal rigidity, or vertebral point tenderness. No Meningismus. Chest/axilla: Normal chest wall appearance and motion. Nontender with no deformity. No lesions are appreciated. 15:35 Constitutional: The patient appears alert, awake. 15:35 Cardiovascular: Rate: tachycardic, Rhythm: regular, Pulses: no pulse deficits are appreciated. 15:35 ECG was reviewed by the Attending Physician. 17:11 Respiratory: Lungs have equal breath sounds bilaterally, clear to auscultation and gs percussion. No rales, rhonchi or wheezes noted. No increased work of breathing, no retractions or nasal flaring. Back: No spinal tenderness. No costovertebral tenderness. Full range of motion. MS/ Extremity: Pulses equal, no cyanosis. Neurovascular intact. Full, normal range of motion. Neuro: Awake and alert, GCS 15, oriented to person, place, time, and situation. Cranial nerves II-XII grossly intact. Motor strength 5/5 in all extremities. Sensory grossly intact. Cerebellar exam normal. Normal gait. 17:11 Abdomen/GI: Palpation: mild abdominal tenderness, in all quadrants, rebound tenderness, is not appreciated. 17:11 Skin: Appearance: Color: pale. Vital Signs: 12:28 BP 129 / 101; Pulse 109; Resp 20; Temp 98.7(O); Pulse Ox 92% on R/A; Pain 0/10; hb 14:00 BP 118 / 79; Pulse 79; Resp 14; Pulse Ox 96% ; bp 15:14 BP 111 / 73; Pulse 85; Resp 16; Pulse Ox 100% ; bp 17:24 BP 132 / 94; Pulse 93; Resp 20; Pulse Ox 98% on 3 lpm NC; bp MDM: 13:22 Patient medically screened. gs 17:11 Differential diagnosis: viral Infection, bacterial infection, pneumonia UTI. Data gs reviewed: vital signs, nurses notes. Response to treatment: the patient's symptoms have markedly improved after treatment, and as a result, I will. 17:25 Data reviewed: old medical records, lab test result(s), EKG, radiologic studies. gs Counseling: I had a detailed discussion with the patient and/or guardian regarding: the historical points, exam findings, and any diagnostic results supporting the discharge/admit diagnosis, the need for further work-up and treatment in the hospital. 04/03 12:39 Order name: Basic Metabolic Panel; Complete Time: 14:41 bp 04/03 12:39 Order name: CBC with Diff; Complete Time: 14:41 bp 04/03 12:39 Order name: LFT's; Complete Time: 14:41 bp 04/03 12:39 Order name: Magnesium; Complete Time: 14:41 bp 04/03 12:39 Order name: NT PRO-BNP; Complete Time: 14:41 bp 04/03 12:39 Order name: PT-INR; Complete Time: 14:41 bp 04/03 12:39 Order name: Troponin (emerg Dept Use Only); Complete Time: 14:41 bp 04/03 12:39 Order name: Procalcitonin; Complete Time: 14:41 bp 04/03 12:39 Order name: Lactate; Complete Time: 14:41 bp 04/03 13:04 Order name: Blood Culture* 04/03 14:30 Order name: CBC Smear Scan; Complete Time: 14:41 EDMS 04/03 14:46 Order name: Urine Microscopic Only 04/03 15:32 Order name: Influenza Screen (A EDRI 04/03 16:12 Order name: Urine Dipstick--Ancillary (enter results) 04/03 12:39 Order name: XRAY Chest (1 view); Complete Time: 14:41 bp 04/03 12:39 Order name: EKG; Complete Time: 12:41 bp 04/03 12:39 Order name: Cardiac monitoring; Complete Time: 12:40 bp 04/03 12:39 Order name: EKG - Nurse/Tech; Complete Time: 12:39 bp 04/03 12:39 Order name: IV Saline Lock; Complete Time: 13:58 bp 04/03 12:39 Order name: Labs collected and sent; Complete Time: 13:58 bp 04/03 12:39 Order name: O2 Per Protocol; Complete Time: 12:40 bp 04/03 12:39 Order name: O2 Sat Monitoring; Complete Time: 12:40 bp 04/03 14:41 Order name: CT Stone Protocol; Complete Time: 15:32 gs 04/03 14:46 Order name: Urine Dipstick-Ancillary (obtain specimen); Complete Time: 17:27 04/03 16:35 Order name: Urine Dipstick-Ancillary EDMS Administered Medications: 13:45 Drug: NS 0.9% 1000 ml Route: IV; Rate: 1 bolus; Site: right hand; bp 14:45 Follow up: IV Status: Completed infusion; IV Intake: 1000ml bp 15:35 Drug: Cefepime 1 grams Route: IVPB; Rate: 200 ml/hr; Infused Over: 30 mins; Site: right bp hand; 17:23 Follow up: IV Status: Completed infusion; IV Intake: 100ml bp Disposition: 04/03/18 16:07 Hospitalization ordered by Shadia Mariano for Observation. Preliminary diagnosis are Fever, unspecified, Sepsis, unspecified organism. - Bed requested for Telemetry/MedSurg (observation). - Status is Observation. bp - Condition is Stable. - Problem is new. - Symptoms have improved. UTI on Admission? No Critical care time excluding procedures: 17:25 Critical care time: Bedside Care: 10 minutes, Consultation: 10 minutes, Family gs Intervention: 10 minutes. Total time: 30 minutes Signatures: Dispatcher [employer] EDMS Shameka Dee RN RN Maude Long RN RN df Starr, Gregory, MD MD gs Peltier, Brian, RN RN bp Corrections: (The following items were deleted from the chart) 16:38 16:07 Hospitalization Ordered by Shadia Mariano MD for Observation. Preliminary df diagnosis is Fever, unspecified; Sepsis, unspecified organism. Bed requested for Telemetry/MedSurg (observation). Status is Observation. Condition is Stable. Problem is new. Symptoms have improved. UTI on Admission? No. gs 17:28 16:38 04/03/2018 16:07 Hospitalization Ordered by Shadia Mariano MD for Observation. bp Preliminary diagnosis is Fever, unspecified; Sepsis, unspecified organism. Bed requested for Telemetry/MedSurg (observation). Status is Observation. Condition is Stable. Problem is new. Symptoms have improved. UTI on Admission? No. df
[2018-04-03 16:34] LABS: Urine Blood NEGATIVE (NEG); Urine Glucose NEGATIVE (NEG); Urine Protein 1+ (NEG)
[2018-04-03 16:40] LABS: Urine Bacteria NONE SEEN /HPF (NONE SEEN); Urine RBC NONE SEEN /HPF (NONE SEEN)
[2018-04-03 16:41] LABS: Urine Culture Reflex Order NOT NEEDED
--- NOTE | 2018-04-03 16:57 | EKG ---
Test Date: 2018-04-03 Test Time: 12:49:20 Apparel Merchandiser: MIKE MEASUREMENT RESULTS: Intervals: Rate: 90 GA: 144 QRSD: 150 QT: 398 QTc: 486 [place]: P: 69 GA: 144 QRS: 269 T: 69 INTERPRETIVE STATEMENTS: Normal sinus rhythm Right bundle branch block Abnormal ECG Compared to ECG 03/16/2018 10:13:02 Sinus tachycardia no longer present Left anterior fascicular block no longer present Bifascicular block no longer present Electronically Signed On 04-03-18 16:56:23 TEACHER OF GIFTED STUDENTS by Ramirez Vickers
[2018-04-03 17:46] VITALS: BMI 33.7
[2018-04-03] MEDS ORDERED: GLUCAGON 1 MG/VIAL IM PRN (17:47)
[2018-04-03] MEDS ORDERED: D50W 25 GM/50 ML SYRINGE IV PRN (17:47)
--- NOTE | 2018-04-03 18:02 | P.HP ---
Patient History Date of Service: 04/03/18 History of Present Illness: The patient is a 58-year-old male with past medical history of COPD, oxygen dependent; diabetes; hypertension; obstructive sleep apnea; gastroesophageal reflux disease admitted who was in his usual state of health until several days prior to admission when the patient had sudden onset of episodes of dizziness and getting a shortness of breath has progressively worsened. The patient denies any ill contacts. The patient's symptoms were constant, moderate, progressively worsening. Of note, patient was discharged recently about 2 weeks ago for similar symptoms. He was treated for sepsis at that time, discharged with a prescription for Levaquin for 5 days. After he completed the course, he stated that he felt well until a few days ago. He also states that he has lost about 14 lb in the past 2 weeks. They came to the ER for further evaluation. In the ER, his vital signs showed him to be tachycardic and tachypneic. He was 90% on room air. His lab work was positive for elevated pro calcitonin 0.8, WBC at 15 with left shift. His lactate was normal, his chest x-ray was also without any acute abnormalities and urine studies were also normal. He was then referred for admission for further evaluation. At the time of my exam, patient was alert oriented x3, was not in any acute distress, was able to talk in complete sentences and was hemodynamically stable. Allergies Penicillins Adverse Reaction (Severe, Verified 08/09/15 00:10) Anaphylaxis Home Medications: Lisinopril 5 mg PO DAILY 04/03/18 Metformin HCl 1,000 mg PO BID 04/03/18 Pantoprazole [Protonix Tab] 40 mg PO Q48H 04/03/18 - Past Medical/Surgical History Diabetic: Yes -: COPD, Oxygen dependent -: DM-2 -: HTN -: Hyperlipidemia -: RACHEL, Compliant with RACHEL -: Obesity -: Tobacco abuse, Quit recently. -: Bowel surgery due to infection 1967 -: Stomach Surgery Nov 2015 -: Colonoscopy 2015 Psychosocial/ Personal History: disabled, -33 years, 4 children - Family History Mother -: Heart disease, Hypertension, Diabetes - Social History Alcohol use: No CD- Drugs: No Caffeine use: Yes Review of Systems 10-point ROS is otherwise unremarkable Physical Examination - Vital Signs Temperature: 98.7 F Blood Pressure: 132/94 Pulse: 93 Respirations: 20 - Physical Exam General: Alert, In no apparent distress, Oriented x3 HEENT: Atraumatic, PERRLA, Mucous membr. moist/pink, EOMI, Sclerae nonicteric Neck: Supple, 2+ carotid pulse no bruit, No LAD, Without JVD or thyroid abnormality Respiratory: Diminished Cardiovascular: Regular rate/rhythm, Normal S1 S2 Gastrointestinal: Normal bowel sounds, No tenderness Musculoskeletal: No tenderness Integumentary: No rashes Neurological: Normal gait, Normal speech, Normal strength at 5/5 x4 extr, Normal tone, Normal affect Lymphatics: No axilla or inguinal lymphadenopathy - Studies Laboratory Data (last 24 hrs) 04/03/18 13:45: PT 13.3 H, INR 1.13 04/03/18 13:45: WBC 14.6 H, Hgb 15.3, Hct 45.8, Plt Count 475 H 04/03/18 13:45: Sodium 137, Potassium 4.3, BUN 13, Creatinine 0.85, Glucose 148 H, Magnesium 1.8, Total Bilirubin 0.6, AST 18, ALT 28, Alkaline Phosphatase 94 Assessment and Plan - Problems (Diagnosis) (1) SIRS (systemic inflammatory response syndrome) Current Visit: Yes Status: Acute (2) Acute exacerbation of chronic obstructive airways disease Onset Date: 08/03/15 Current Visit: No Status: Acute (3) DM2 (diabetes mellitus, type 2) Onset Date: 02/03/14 Current Visit: No Status: Chronic Qualifiers: Diabetes mellitus terminal system operator insulin use: unspecified [facility] insulin use status Diabetes mellitus complication status: without complication Qualified Code(s): E11.9 - Type 2 diabetes mellitus without complications (4) HTN (hypertension) Onset Date: 07/30/15 Current Visit: No Status: Chronic Qualifiers: Hypertension type: essential hypertension Qualified Code(s): I10 - Essential (primary) hypertension (5) Hyperlipemia Onset Date: 08/10/15 Current Visit: No Status: Chronic Qualifiers: Hyperlipidemia type: unspecified Qualified Code(s): E78.5 - Hyperlipidemia , unspecified (6) Morbid obesity Onset Date: 03/04/15 Current Visit: No Status: Chronic (7) Sleep apnea Onset Date: 03/04/15 Current Visit: No Status: Chronic Qualifiers: Sleep apnea type: unspecified type Qualified Code(s): G47.30 - Sleep apnea , unspecified - Plan This is a 58-year-old male with: Systemic inflammatory response syndrome Will start IV antibiotics IV fluids Acute exacerbation of COPD Continue nebulizer treatments Repeat chest x-ray tomorrow Continue oxygen per protocol. Patient already at baseline home oxygen Sleep apnea, CPAP requiring We will have Respiratory give him CPAP at night. The patient is unable to have his CPAP from home brought in. Essential hypertension Will restart home medication [id number] diabetes mellitus type 2 with hyperglycemia. We will start on sliding scale with insulin. Mixed hyperlipidemia. Continue home statin. DVT prophylaxis: Lovenox GI prophylaxis: None Diet: 1800 diabetic Disposition: Admit to floor. Pending symptomatic improved - Advance Directives Does patient have a Living Will: No Does patient have a Durable POA for Healthcare: No
[2018-04-03] MEDS: NA CHLORIDE 0.9% 1,000 ML IV SCH (18:18)
[2018-04-03] MEDS: ENOXAPARIN 40 MG/0.4 ML SQ SCH (18:18)
[2018-04-03] MEDS ORDERED: MAGNESIUM SULFATE 1 gm IVPB 1 GM/100 ML BAG IV ONE (18:45)
[2018-04-03] MEDS: ACETAMINOPHEN 500 MG TAB PO PRN (20:21)
[2018-04-03] MEDS: INSULIN -REGULAR HUMAN 50 UNIT/0.5 ML ML SQ SCH (20:21)
[2018-04-03] MEDS ORDERED: IPRATROPIUM BROM 0.5MG/2.5ML NEB PRN (20:33)
[2018-04-03] MEDS ORDERED: HYDROCORTISONE SUC 100 MG INJ IV ONE (20:33)
[2018-04-03] MEDS ORDERED: ALBUTEROL 2.5 MG/3 ML NEB SOL NEB PRN (20:33)
[2018-04-04] MEDS: ACETAMINOPHEN 500 MG TAB PO PRN ×3 (04:21→14:31)
[2018-04-04 04:48] LABS: ALT/SGPT 25 U/L (12-78); AST/SGOT 11 U/L (15-37); Albumin 3.3 g/dL (3.4-5.0); Alkaline Phosphatase 92 U/L (45-117); BUN Blood Urea Nitrogen 12 mg/dL (7-18); Bicarbonate 33 mmol/L (21-32); Bilirubin Total 0.7 mg/dL (0.2-1.0); Glucose Level 187 mg/dL (74-106); Potassium 4.1 mmol/L (3.5-5.1); Protein, Total 7.8 g/dL (6.4-8.2); Sodium Level 138 mmol/L (136-145)
[2018-04-04] MEDS: NA CHLORIDE 0.9% 1,000 ML IV SCH ×2 (04:57→13:46)
[2018-04-04 05:02] LABS: Phosphorus 3.5 mg/dL (2.5-4.9)
[2018-04-04] MEDS: INSULIN -REGULAR HUMAN 50 UNIT/0.5 ML ML SQ SCH ×2 (07:30→11:30)
[2018-04-04] MEDS: ENOXAPARIN 40 MG/0.4 ML SQ SCH (08:21)
[2018-04-04 12:35] VITALS: BP 124/79; TEMP 98.4
--- NOTE | 2018-04-04 12:43 | P.SSS ---
Patient History Date of Service: 04/04/18 Reason for admission: Shortness of breath History of Present Illness: The patient is a 58-year-old male with past medical history of COPD, oxygen dependent; diabetes; hypertension; obstructive sleep apnea; gastroesophageal reflux disease admitted who was in his usual state of health until several days prior to admission when the patient had sudden onset of episodes of dizziness and getting a shortness of breath has progressively worsened. The patient denies any ill contacts. The patient's symptoms were constant, moderate, progressively worsening. Of note, patient was discharged recently about 2 weeks ago for similar symptoms. He was treated for sepsis at that time, discharged with a prescription for Levaquin for 5 days. After he completed the course, he stated that he felt well until a few days ago. He also states that he has lost about 14 lb in the past 2 weeks. They came to the ER for further evaluation. In the ER, his vital signs showed him to be tachycardic and tachypneic. He was 90% on room air. His lab work was positive for elevated pro calcitonin 0.8, WBC at 15 with left shift. His lactate was normal, his chest x-ray was also without any acute abnormalities and urine studies were also normal. He was then referred for admission for further evaluation. At the time of my exam, patient was alert oriented x3, was not in any acute distress, was able to talk in complete sentences and was hemodynamically stable. Allergies Penicillins Adverse Reaction (Severe, Verified 08/09/15 00:10) Anaphylaxis Home Medications: Amlodipine [Norvasc*] 10 mg PO DAILY 04/03/18 Lisinopril 5 mg PO DAILY 04/03/18 Metformin HCl 1,000 mg PO BID 04/03/18 Pantoprazole [Protonix Tab*] 40 mg PO Q48H 04/03/18 Methylprednisolone [Medrol dosepack] 4 mg PO DIRECTED #1 jodi 04/04/18 - Past Medical/Surgical History Has patient received pneumonia vaccine in the past: Yes Diabetic: Yes -: COPD, Oxygen dependent -: DM-2 -: HTN -: Hyperlipidemia -: RACHEL, Compliant with RACHEL -: Obesity -: Tobacco abuse, Quit recently. -: Bowel surgery due to infection 1967 -: Stomach Surgery Nov 2015 -: Colonoscopy 2015 Psychosocial/ Personal History: disabled, -31 years, 4 children - Family History Mother -: Heart disease, Hypertension, Diabetes - Social History Smoking Status: Never smoker Alcohol use: No CD- Drugs: No Caffeine use: Yes Place of Residence: Home Review of Systems 10-point ROS is otherwise unremarkable Physical Examination - Vital Signs Temperature: 98.4 F Blood Pressure: 124/79 Pulse: 82 Respirations: 16 Pulse Ox (%): 95 - Physical Exam General: Alert, In no apparent distress, Oriented x3 HEENT: Atraumatic, PERRLA, Mucous membr. moist/pink, EOMI, Sclerae nonicteric Neck: Supple, 2+ carotid pulse no bruit, No LAD, Without JVD or thyroid abnormality Respiratory: Clear to auscultation bilaterally, Normal air movement Cardiovascular: Regular rate/rhythm, Normal S1 S2 Gastrointestinal: Normal bowel sounds, No tenderness Musculoskeletal: No tenderness Integumentary: No rashes Neurological: Normal gait, Normal speech, Normal strength at 5/5 x4 extr, Normal tone, Normal affect Lymphatics: No axilla or inguinal lymphadenopathy - Studies Laboratory Data (last 24 hrs) 04/03/18 13:45: PT 13.3 H, INR 1.13 04/03/18 13:45: WBC 14.6 H, Hgb 15.3, Hct 45.8, Plt Count 475 H 04/03/18 13:45: Sodium 137, Potassium 4.3, BUN 13, Creatinine 0.85, Glucose 148 H, Magnesium 1.8, Total Bilirubin 0.6, AST 18, ALT 28, Alkaline Phosphatase 94 - Diagnosis (Problem(s)) (1) SIRS (systemic inflammatory response syndrome) Onset Date: 04/04/18 Current Visit: Yes Status: Resolved (2) Acute exacerbation of chronic obstructive airways disease Onset Date: 08/03/15 Current Visit: No Status: Chronic (3) DM2 (diabetes mellitus, type 2) Onset Date: 02/03/14 Current Visit: No Status: Chronic Qualifiers: Diabetes mellitus fdc insulin use: unspecified termite control representative insulin use status Diabetes mellitus complication status: without complication Qualified Code(s): E11.9 - Type 2 diabetes mellitus without complications (4) HTN (hypertension) Onset Date: 07/30/15 Current Visit: No Status: Chronic Qualifiers: Hypertension type: essential hypertension Qualified Code(s): I10 - Essential (primary) hypertension (5) Hyperlipemia Onset Date: 08/10/15 Current Visit: No Status: Chronic Qualifiers: Hyperlipidemia type: unspecified Qualified Code(s): E78.5 - Hyperlipidemia , unspecified (6) Morbid obesity Onset Date: 03/04/15 Current Visit: No Status: Chronic (7) Sleep apnea Onset Date: 03/04/15 Current Visit: No Status: Chronic Qualifiers: Sleep apnea type: unspecified type Qualified Code(s): G47.30 - Sleep apnea , unspecified Treatment Summary: Patient was admitted for possible acute exacerbation of COPD/SIRS. He was started on IV antibiotics, IV fluids, breathing treatments and oxygen as needed. At the time of my exam initially, patient was already at baseline home oxygen, he was no acute distress, he was alert oriented x3. His chest x-ray remained clear. He remained hemodynamically stable, no acute complaints overnight. On the day of discharge, patient continued to be alert oriented x3, stated that he felt back to his baseline, he had a great night of sleep. He was discharged home without any changes to his medications. He was discharged home on a steroid Dosepak with instructions to follow up with his primary care physician in 1 week and leather roller in 2 weeks. - Disposition Discharge Date: 04/04/18 Disposition: ROUTINE DISCHARGE Condition: GOOD Patient Discharge Instructions: Please follow up with the primary care physician in 1 week. Please follow up with the leather roller in 1-2 weeks. Please return to the emergency room for worsening symptoms. Diet: ADA Activity: Ad hipolito Time Spent Managing Pts Care (In Minutes): 55
[2018-04-04 15:45] VITALS: O2SAT 92
== END 2018-04-04 15:30 | disposition home or self-care (01) ==
LOC: ER 12:04 → ERHOLD 15:25 → 4TH 17:17
PROVIDERS: ADMIT Family Medicine; ATTEND Family Medicine
DX: J44.1 Chronic obstructive pulmonary disease with (acute) exacerbation (principal); R65.10 Systemic inflammatory response syndrome (SIRS) of non-infectious origin without acute organ dysfunction; E11.9 Type 2 diabetes mellitus without complications; G47.33 Obstructive sleep apnea (adult) (pediatric); K21.9 Gastro-esophageal reflux disease without esophagitis; Z99.81 Dependence on supplemental oxygen; Z88.0 Allergy status to penicillin; I10 Essential (primary) hypertension; E78.5 Hyperlipidemia, unspecified; E66.01 Morbid (severe) obesity due to excess calories; Z68.33 Body mass index [BMI] 33.0-33.9, adult
CPT/HCPCS: 36415; 71045; 74176; 76377; 80048; 80053; 80076; 82962 ×4; 83605; 83735 ×2; 83880; 84100; 84145; 84484; 85025; 85610; 87040 ×2; 87205 ×2; 87804 ×2; 93005; 94640; 94760 ×3; 96361; 96365; 96366; 99285; G0378 ×2; J0692; J1650 ×2; J1720; J3475; J7030 ×3; 81003; 81015

== ENCOUNTER 2018-04-14 16:18 | Observation (INO) | payer OTHER ==
[2018-04-14 17:15] LABS: Absolute Lymphocytes (CBC) 1.3 K/uL (0.7-4.9); Absolute Monocytes 0.9 K/uL (0.1-1.3); Absolute Neutrophil 10.6 K/uL (1.8-8.0); Basophils % 0.6 % (0-1.3); Eosinophils % 0.4 % (0-4.4); Hematocrit 42.1 % (39.6-49.0); Lymphocytes % 10.3 % (15.3-44.8); MPV 8.4 fL (7.6-11.3); RBC Red Blood Cell Count 4.68 M/uL (4.33-5.43)
[2018-04-14 17:34] LABS: ALT/SGPT 43 U/L (12-78); AST/SGOT 24 U/L (15-37); Albumin 2.7 g/dL (3.4-5.0); Alkaline Phosphatase 118 U/L (45-117); BUN Blood Urea Nitrogen 14 mg/dL (7-18); Bicarbonate 32 mmol/L (21-32); Bilirubin Direct 0.2 mg/dL (0-0.2); Bilirubin Total 0.5 mg/dL (0.2-1.0); CKMB Creatine Kinase MB < 1.0 ng/mL (0.3-3.6); Creatine Phosphokinase 36 U/L (39-308); Glucose Level 231 mg/dL (74-106); Lipase 97 U/L (73-393); Protein, Total 7.9 g/dL (6.4-8.2); Sodium Level 135 mmol/L (136-145); Troponin (Emerg Dept Use Only) < 0.02 ng/mL (0.0-0.045)
--- NOTE | 2018-04-14 17:34 | RAD REPORT ---
EXAM DESCRIPTION: RAD - Chest Single View - 04/14/2018 5:26 pm CLINICAL HISTORY: COPD Chest pain. COMPARISON: Chest Single View dated 04/03/2018; Chest Pa And Lat (2 Views) dated 03/17/2018; Chest Sin gle View dated 03/16/2018; Chest Single View dated 08/07/2015; Stone Protocol dated 04/03/2018 FINDINGS: Portable technique limits examination quality. Calcified granuloma is present in the left lower lobe. The lungs are otherwise clear. The heart is mi ldly enlarged in size. No displaced fractures. IMPRESSION: No acute intrathoracic process suspected.
[2018-04-14 18:44] LABS: Urine Bacteria <20 /HPF (NONE SEEN); Urine Culture Reflex Order NOT NEEDED; Urine RBC <5 /HPF (NONE SEEN)
[2018-04-14 18:45] LABS: Urine Mucus 2+ /HPF (NONE SEEN)
--- NOTE | 2018-04-14 19:52 | EDPHYS ---
Physician Documentation [facility] Name: Salas Srivastava Age: 58 yrs Sex: Male : 1960 Arrival Date: 04/14/2018 Time: 16:20 Bed 20 Private MD: ED Physician Noé Love HPI: 04/14 17:21 This 58 yrs old Male presents to ER via Ambulatory with complaints of Fever. kb 17:21 The patient reports fever, not measured (subjective), with an emergency department kb temperature of 98.6 degrees Fahrenheit. Onset: The symptoms/episode began/occurred March 16, 2018. Modifying factors: there are no obvious modifying factors. Associated signs and symptoms: Pertinent positives: chills. Severity of symptoms: At their worst the symptoms were mild moderate in the emergency department the symptoms are unchanged. The patient has not experienced similar symptoms in the past. The patient has been recently been admitted at [facility], was discharged a couple of weeks ago, for similar complaints. Pt states he came in because he is still having subjective fever ("it feels about 99 to 100, not really high"). States he was admitted on 03/16/18 and 04/03/18 for sepsis and they never found anything. States he has had diarrhea his whole life and thinks maybe the virus or bacteria is intestinal, but doesn't have any pain or tenderness to abd. States he has also been fatigued. States "it's not my COPD or anything, it must be in my abd." Denies cough, congestion, nausea, vomiting, headache. . Historical: - Allergies: 16:29 PENICILLINS; sg - Home Meds: 20:00 acetazolamide 125 mg Oral tab [Active]; Albuterol Inhl [Active]; amlodipine 10 mg oral cc3 tab 1 tab once daily [Active]; glimepiride 2 mg Oral tab [Active]; lisinopril 5 mg oral tab 1 tab once daily [Active]; metformin 1,000 mg Oral tab 1 tab 2 times per day [Active]; pantoprazole 40 mg oral TbEC 1 tab once daily [Active]; prednisone 20 mg Oral tab [Active]; - PMHx: 16:29 COPD; Diabetes - NIDDM; Hypertension; Sleep Apnea; sg - Immunization history:: Adult Immunizations up to date. - Social history:: Smoking status: Patient/guardian denies using tobacco. - Ebola Screening: : Patient negative for fever greater than or equal to 101.5 degrees Fahrenheit, and additional compatible Ebola Virus Disease symptoms Patient denies exposure to infectious person Patient denies travel to an Ebola-affected area in the 21 days before illness onset No symptoms or risks identified at this time. ROS: 17:20 ENT: Negative for injury, pain, and discharge, Neck: Negative for injury, pain, and kb swelling, Cardiovascular: Negative for chest pain, palpitations, and edema, Respiratory: Negative for shortness of breath, cough, wheezing, and pleuritic chest pain, Back: Negative for injury and pain, : Negative for injury, bleeding, discharge, and swelling, MS/Extremity: Negative for injury and deformity, Skin: Negative for injury, rash, and discoloration, Neuro: Negative for headache, weakness, numbness, tingling, and seizure. 17:20 Constitutional: Positive for chills, fatigue, fever, malaise, Negative for body aches, poor PO intake, weight loss. 17:20 Abdomen/GI: Positive for diarrhea, Negative for abdominal pain, nausea and vomiting. Exam: 17:21 Constitutional: This is a well developed, well nourished patient who is awake, alert, kb and in no acute distress. Head/Face: Normocephalic, atraumatic. ENT: Nares patent. No nasal discharge, no septal abnormalities noted. Tympanic membranes are normal and external auditory canals are clear. Oropharynx with no redness, swelling, or masses, exudates, or evidence of obstruction, uvula midline. Mucous membranes moist. Neck: Trachea midline, no thyromegaly or masses palpated, and no cervical lymphadenopathy. Supple, full range of motion without nuchal rigidity, or vertebral point tenderness. No Meningismus. Chest/axilla: Normal chest wall appearance and motion. Nontender with no deformity. No lesions are appreciated. Cardiovascular: Regular rate and rhythm with a normal S1 and S2. No gallops, murmurs, or rubs. Normal PMI, no JVD. No pulse deficits. Respiratory: Lungs have equal breath sounds bilaterally, clear to auscultation and percussion. No rales, rhonchi or wheezes noted. No increased work of breathing, no retractions or nasal flaring. Abdomen/GI: Soft, non-tender, with normal bowel sounds. No distension or tympany. No guarding or rebound. No evidence of tenderness throughout. Skin: Warm, dry with normal turgor. Normal color with no rashes, no lesions, and no evidence of cellulitis. MS/ Extremity: Pulses equal, no cyanosis. Neurovascular intact. Full, normal range of motion. Neuro: Awake and alert, GCS 15, oriented to person, place, time, and situation. Cranial nerves II-XII grossly intact. Motor strength 5/5 in all extremities. Sensory grossly intact. Cerebellar exam normal. Normal gait. Vital Signs: 16:28 BP 152 / 88; Pulse 103; Resp 24; Temp 98.6; Pulse Ox 88% on R/A; Weight 133.81 kg; Pain sg 3/10; 17:30 BP 119 / 77; Pulse 94; Resp 22; Pulse Ox 96% 2 lpm ; em 18:52 BP 124 / 84; Pulse 103; Resp 26; Temp 99.5(O); Pulse Ox 93% on 2 lpm NC; Pain 0/10; em 19:11 BP 138 / 82; Pulse 94; Resp 16 S; Temp 98.4(O); Pulse Ox 94% on 2 lpm NC; cc3 20:50 BP 126 / 79; Pulse 97; Resp 21 S; Pulse Ox 93% on 2 lpm NC; cc3 21:04 BP 125 / 78; Pulse 99; Resp 22 S; Pulse Ox 94% on 2 lpm NC; cc3 16:28 placed to 2 lpm NC o2 increased to 94 % sg MDM: 16:30 Patient medically screened. 17:18 Data reviewed: vital signs, nurses notes. Data interpreted: Pulse oximetry: on room air kb is 88 %. Interpretation: normal for pt, Pt is O2 dependent, uses 3L at home at all times. Pt is 94% on 1.5L . 17:26 Data reviewed: old medical records, Previous records reviewed from admissions on kb 03/16/18 and 04/03/18. 18:05 Counseling: I had a detailed discussion with the patient and/or guardian regarding: the kb historical points, exam findings, and any diagnostic results supporting the discharge/admit diagnosis, lab results, radiology results, the need for outpatient follow up, a family practitioner, to return to the emergency department if symptoms worsen or persist or if there are any questions or concerns that arise at home. 19:50 Physician consultation: Momo Gonsalves MD was contacted at 19:50, regarding admission, snw to the telemetry unit. 04/14 16:42 Order name: Basic Metabolic Panel; Complete Time: 17:34 kb 04/14 16:42 Order name: Blood Culture Adult (2) kb 04/14 16:42 Order name: CBC with Diff; Complete Time: 17:18 kb 04/14 16:42 Order name: Ckmb; Complete Time: 17:34 kb 04/14 16:42 Order name: CPK; Complete Time: 17:34 kb 04/14 16:42 Order name: Lactate; Complete Time: 17:34 kb 04/14 16:42 Order name: LFT's; Complete Time: 17:34 kb 04/14 16:42 Order name: Lipase; Complete Time: 17:34 kb 04/14 16:42 Order name: Procalcitonin; Complete Time: 18:26 kb 04/14 16:42 Order name: Troponin (emerg Dept Use Only); Complete Time: 17:34 kb 04/14 16:42 Order name: Urine Microscopic Only; Complete Time: 18:48 kb 04/14 17:06 Order name: Bledsoe Screen Profile; Complete Time: 17:43 kb 04/14 17:55 Order name: Stool Culture 04/14 17:55 Order name: CDIFF kb 04/14 16:42 Order name: Chest Single View XRAY; Complete Time: 17:36 kb 04/14 16:42 Order name: Cardiac monitoring; Complete Time: 17:04 kb 04/14 16:42 Order name: EKG - Nurse/Tech; Complete Time: 17:04 kb 04/14 16:42 Order name: IV Saline Lock - Large Bore; Complete Time: 17:04 kb 04/14 16:42 Order name: Labs collected and sent; Complete Time: 17:04 kb 04/14 16:42 Order name: O2 Per Protocol; Complete Time: 17:04 kb 04/14 16:42 Order name: O2 Sat Monitoring; Complete Time: 17:04 kb 04/14 16:42 Order name: Urine Dipstick-Ancillary (obtain specimen); Complete Time: 17:04 kb 04/14 18:52 Order name: CT Abd/Pelvis - W/Contrast snw 04/14 20:56 Order name: CT; Complete Time: 20:59 EDMS Administered Medications: No medications were administered Disposition: 04/14/18 19:51 Hospitalization ordered by Momo Gonsalves for Observation. Preliminary diagnosis are Nausea, Malaise and fatigue, Elevated procalcitonin. - Bed requested for Telemetry/MedSurg (observation). - Status is Observation. cc3 - Condition is Stable. - Problem is an ongoing problem. - Symptoms have worsened. UTI on Admission? No Addendum: 04/16/2018 07:47 Co-signature as Attending Physician, Noé Love MD I agree with the assessment and c garduno plan of care. Signatures: Dispatcher [employer] EDMS Khloe Fink, SCISSORS GRINDER-C SCISSORS GRINDER-[facility] Liang RN Venkat Dnaiels RN RN sg Anderson, Corey, MD MD cha Therrien, Shelly, SCISSORS GRINDER-C SCISSORS GRINDER-[facility] Isabelle Zamora cc3 Corrections: (The following items were deleted from the chart) 04/14 20:29 19:51 Hospitalization Ordered by Momo Gonsalves MD for Observation. Preliminary kl diagnosis is Nausea; Malaise and fatigue; Elevated procalcitonin. Bed requested for Telemetry/MedSurg (observation). Status is Observation. Condition is Stable. Problem is an ongoing problem. Symptoms have worsened. UTI on Admission? No. snw 21:51 20:29 04/14/2018 19:51 Hospitalization Ordered by Momo Gonsalves MD for Observation. cc3 Preliminary diagnosis is Nausea; Malaise and fatigue; Elevated procalcitonin. Bed requested for Telemetry/MedSurg (observation). Status is Observation. Condition is Stable. Problem is an ongoing problem. Symptoms have worsened. UTI on Admission? No. kl
--- NOTE | 2018-04-14 19:52 | ER ---
Nurse's Notes [facility] Name: Salas Srivastava Age: 58 yrs Sex: Male : 1960 Arrival Date: 04/14/2018 Time: 16:20 Bed 20 Private MD: Diagnosis: Nausea;Malaise and fatigue;Elevated procalcitonin Presentation: 04/14 16:25 Presenting complaint: Patient states: Enriqueta been in and out of the hospital with Sepsis, sg and well Im back and think that the sepsis just hasnt gotten any better, I have had fever off and on with sweats and chills, I cant figure out where the infection might be Im no doctor but if I had to guess I think its in my stomach. Denies N/V/D at this time. Transition of care: patient was not received from another setting of care. Onset of symptoms was April 14, 2018. Risk Assessment: Do you want to hurt yourself or someone else? Patient reports no desire to harm self or others. Initial Sepsis Screen: Does the patient meet any 2 criteria? RR > 20 per min. HR > 90 bpm. Yes Does the patient have a suspected source of infection? No. Patient's initial sepsis screen is negative. Care prior to arrival: None. 16:25 Method Of Arrival: Ambulatory sg 16:25 Acuity: ESVIN 3 sg Historical: - Allergies: 16:29 PENICILLINS; sg - Home Meds: 20:00 acetazolamide 125 mg Oral tab [Active]; Albuterol Inhl [Active]; amlodipine 10 mg oral cc3 tab 1 tab once daily [Active]; glimepiride 2 mg Oral tab [Active]; lisinopril 5 mg oral tab 1 tab once daily [Active]; metformin 1,000 mg Oral tab 1 tab 2 times per day [Active]; pantoprazole 40 mg oral TbEC 1 tab once daily [Active]; prednisone 20 mg Oral tab [Active]; - PMHx: 16:29 COPD; Diabetes - NIDDM; Hypertension; Sleep Apnea; sg - Immunization history:: Adult Immunizations up to date. - Social history:: Smoking status: Patient/guardian denies using tobacco. - Ebola Screening: : Patient negative for fever greater than or equal to 101.5 degrees Fahrenheit, and additional compatible Ebola Virus Disease symptoms Patient denies exposure to infectious person Patient denies travel to an Ebola-affected area in the 21 days before illness onset No symptoms or risks identified at this time. Screenin:50 Abuse screen: Denies threats or abuse. Nutritional screening: No deficits noted. em Tuberculosis screening: No symptoms or risk factors identified. Fall Risk None identified. Assessment: 16:45 General: Appears in no apparent distress. comfortable, Behavior is calm, cooperative, em Reports chills for >3 days, fever for > 3 days, feeling ill for. Pain: Complains of pain in abdomen Pain currently is 3 out of 10 on a pain scale. Quality of pain is described as aching, Pain began 11 days ago. Neuro: Level of Consciousness is awake, alert, obeys commands, Oriented to person, place, time, situation, Denies weakness. Cardiovascular: Denies chest pain, shortness of breath, Capillary refill. Respiratory: Airway is patent Respiratory effort is even, unlabored, Respiratory pattern is regular, symmetrical, Breath sounds are clear bilaterally. GI: Abdomen is round non-distended, Bowel sounds present X 4 quads. Abd is soft and non tender X 4 quads. Patient currently denies nausea, vomiting. Derm: Skin is intact, Skin is clammy, Skin is pale. Musculoskeletal: Range of motion: intact in all extremities. 17:00 Reassessment: I agree with previous assessment. hb 17:43 Reassessment: Patient appears in no apparent distress at this time. Patient and/or em family updated on plan of care and expected duration. Pain level reassessed. Patient is alert, oriented x 3, equal unlabored respirations, skin warm/dry/pink. 18:54 Reassessment: Patient appears in no apparent distress at this time. Patient and/or em family updated on plan of care and expected duration. Pain level reassessed. Patient is alert, oriented x 3, equal unlabored respirations, skin warm/dry/pink. 19:12 Reassessment: Patient appears in no apparent distress at this time. Patient and/or cc3 family updated on plan of care and expected duration. Pain level reassessed. Patient is alert, oriented x 3, equal unlabored respirations, skin warm/dry/pink. Received this male patient from morning shift [facility] as a case of abdominal pain, low grade fever; with IV cannula gauge 20 at the right forearm saline locked. 19:15 Reassessment: Patient finished his oral contrast, copier repair technician informed. cc3 20:00 Reassessment: Dr. Victor assessing the patient at bedside. cc3 20:30 Reassessment: Patient appears in no apparent distress at this time. Patient and/or cc3 family updated on plan of care and expected duration. Pain level reassessed. Patient is alert, oriented x 3, equal unlabored respirations, skin warm/dry/pink. Patient taken by calibration technician to CT scan department. 20:46 Reassessment: Room available in 220, patient still in CT scan department, BIOCHEMISTRY TECHNICIAN Morenita cc3 said no need to wait for the CT scan result the patient can be sent to the med-surg unit for admission once he's back from CT scan department, charge nurse Iqra informed. 20:50 Reassessment: Patient came back from CT scan department. cc3 21:00 Reassessment: Patient appears in no apparent distress at this time. Patient and/or cc3 family updated on plan of care and expected duration. Pain level reassessed. Patient is alert, oriented x 3, equal unlabored respirations, skin warm/dry/pink. Report called and handed over to MIGUELITO Mcgee for continuity of care. 21:45 Reassessment: Patient left ER for admission vitally stable by wheelchair escorted by ED cc3 joel Rowe. Vital Signs: 16:28 BP 152 / 88; Pulse 103; Resp 24; Temp 98.6; Pulse Ox 88% on R/A; Weight 133.81 kg; Pain sg 3/10; 17:30 BP 119 / 77; Pulse 94; Resp 22; Pulse Ox 96% 2 lpm ; em 18:52 BP 124 / 84; Pulse 103; Resp 26; Temp 99.5(O); Pulse Ox 93% on 2 lpm NC; Pain 0/10; em 19:11 BP 138 / 82; Pulse 94; Resp 16 S; Temp 98.4(O); Pulse Ox 94% on 2 lpm NC; cc3 20:50 BP 126 / 79; Pulse 97; Resp 21 S; Pulse Ox 93% on 2 lpm NC; cc3 21:04 BP 125 / 78; Pulse 99; Resp 22 S; Pulse Ox 94% on 2 lpm NC; cc3 16:28 placed to 2 lpm NC o2 increased to 94 % sg ED Course: 16:20 Patient arrived in ED. mr 16:26 Ricardo PATRICIA Nixon is Primary Nurse. em 16:27 Triage completed. sg 16:27 Arm band placed on. sg 16:30 Khloe Fink FNP-C is PHCP. kb 16:30 Noé Love MD is Attending Physician. kb 16:50 Patient has correct armband on for positive identification. Placed in gown. Bed in low em position. Call light in reach. Side rails up X2. data programmer on. Pulse ox on. NIBP on. 17:26 Chest Single View XRAY In Process Unspecified. EDMS 18:08 PHCP role handed off by Khloe Fink FNP-C snw 18:08 Morenita Payne FNP-C is PHCP. snw 19:50 Momo Gonsalves MD is Hospitalizing Provider. snw 20:45 CT completed. Patient tolerated procedure well. Patient moved back from CT. kw1 21:00 No provider procedures requiring assistance completed. Patient admitted, IV remains in cc3 place. Administered Medications: No medications were administered Outcome: 19:51 Decision to Hospitalize by Provider. snw 21:00 Admitted to Med/surg accompanied by tech, via wheelchair, room 220, with oxygen, with cc3 chart, Report called to MIGUELITO Mcgee 21:00 Condition: stable 21:00 Instructed on the need for admit, Demonstrated understanding of instructions. 21:51 Patient left the ED. cc3 Signatures: Dispatcher [employer] EDDC Khloe Fink FNP-C FNP-Venkat Triplett RN RN Morenita Payne FNP-C FNP-Olga Luna mr Ricardo Hussain, PATRICIA CLINICAL ASST em Shameka Dee RN RN [facility] kw1 Isabelle Zamora cc3 Corrections: (The following items were deleted from the chart) 18:53 17:30 BP 119 / 77; Pulse 94bpm; Resp 15bpm; Pulse Ox 96% 2 lpm; em em 18:53 18:52 BP 124 / 124; Pulse 103bpm; Resp 26bpm; Pulse Ox 93% 2 lpm Nasal Cannula; Pain em 0/10; em 20:54 20:32 Pulse 88bpm; Resp 22bpm; Spontaneous; Pulse Ox 94% 2 lpm Nasal Cannula; cc3 cc3 21:01 20:50 Reassessment: Patient came back from CT scan department. cc3 cc3
--- NOTE | 2018-04-14 20:25 | P.HP ---
Certification for Inpatient Patient admitted to: Observation With expected LOS: <2 Midnights Practitioner: I am a practitioner with admitting privileges, knowledge of patient current condition, hospital course, and medical plan of care. Services: Services provided to patient in accordance with Admission requirements found in Title 42 Section 412.3 of the Code of Federal Regulations Patient History Date of Service: 04/14/18 Reason for admission: abdominal pain, diarrhea History of Present Illness: Mr Srivastava is a 58 years old male with history of obesity, COPD on home oxygen, DM II, HTN, who was admitted to the hospital about 2 weeks ago due to COPD exacerbation. He states that he was feeling well the first week after discharge , he complete the treatment with prednisone without problems. However, since a few days ago, he start with cramping like abdominal pain, associated with subjective fever symptoms. He is also complaining of diarrhea, however, this is chronic for him. His bowel movements are greenish, mixed with brown and yellowish. At arrival, he was afebrile, temp 98.7 F, CXR with acute abnormalities. Lab work shows leukocytosis 13.0 K, elevated procalcitonin, normal renal function and lactate. There is pending a CT abd/pelvis. Allergies Penicillins Adverse Reaction (Severe, Verified 08/09/15 00:10) Anaphylaxis Home medications list reviewed: Yes Home Medications: Amlodipine [Norvasc*] 10 mg PO DAILY 04/03/18 Lisinopril 5 mg PO DAILY 04/03/18 Metformin HCl 1,000 mg PO BID 04/03/18 Pantoprazole [Protonix Tab*] 40 mg PO Q48H 04/03/18 Methylprednisolone [Medrol dosepack] 4 mg PO DIRECTED #1 jodi 04/04/18 - Past Medical/Surgical History Diabetic: Yes -: COPD, Oxygen dependent -: DM-2 -: HTN -: Hyperlipidemia -: RACHEL, Compliant with RACHEL -: Obesity -: Tobacco abuse, Quit recently. -: Bowel surgery due to infection 1967 -: Stomach Surgery Nov 2015 -: Colonoscopy 2015 Psychosocial/ Personal History: disabled, -33 years, 4 children - Family History Mother -: Heart disease, Hypertension, Diabetes - Social History Smoking Status: Former smoker Alcohol use: No CD- Drugs: No Caffeine use: Yes Place of Residence: Home Review of Systems 10-point ROS is otherwise unremarkable Physical Examination - Physical Exam General: Alert, In no apparent distress HEENT: Atraumatic, PERRLA, Mucous membr. moist/pink, EOMI, Sclerae nonicteric Neck: Supple, 2+ carotid pulse no bruit, No LAD, Without JVD or thyroid abnormality Respiratory: Diminished, Expiratory wheezes Cardiovascular: Regular rate/rhythm, Normal S1 S2 Gastrointestinal: Hyperactive, Distended, Tenderness (diffuse tender to palpation) Musculoskeletal: No tenderness Integumentary: No rashes Neurological: Normal speech, Normal strength at 5/5 x4 extr, Normal tone, Normal affect Lymphatics: No axilla or inguinal lymphadenopathy - Studies Laboratory Data (last 24 hrs) 04/14/18 17:00: WBC 13.0 H, Hgb 13.8, Hct 42.1, Plt Count 238 D 04/14/18 17:00: Sodium 135 L, Potassium 4.0, BUN 14, Creatinine 0.90, Glucose 231 H, Total Bilirubin 0.5, AST 24, ALT 43, Alkaline Phosphatase 118 H, Lipase 97 Assessment and Plan - Problems (Diagnosis) (1) Abdominal pain Current Visit: Yes Status: Acute Qualifiers: Abdominal location: generalized Qualified Code(s): R10.84 - Generalized abdominal pain (2) Diarrhea Current Visit: Yes Status: Acute Qualifiers: Diarrhea type: unspecified type Qualified Code(s): R19.7 - Diarrhea, unspecified (3) COPD (chronic obstructive pulmonary disease) Current Visit: No Status: Acute Qualifiers: Emphysema type: unspecified (4) DM2 (diabetes mellitus, type 2) Onset Date: 02/03/14 Current Visit: No Status: Chronic Qualifiers: Diabetes mellitus nursing home insulin use: unspecified nursing home insulin use status Diabetes mellitus complication status: without complication Qualified Code(s): E11.9 - Type 2 diabetes mellitus without complications (5) HTN (hypertension) Onset Date: 07/30/15 Current Visit: No Status: Chronic Qualifiers: Hypertension type: essential hypertension Qualified Code(s): I10 - Essential (primary) hypertension (6) Sleep apnea Onset Date: 03/04/15 Current Visit: No Status: Chronic Qualifiers: Sleep apnea type: unspecified type Qualified Code(s): G47.30 - Sleep apnea , unspecified - Plan Will admit the patient due to abdominal pain and diarrhea. C.diff is suspected, however, CT abd/pelvis is pending to R/O intraabdominal abnormalities. Will start empiric Cipro and Flagyl. Continue IV fluids. - Advance Directives Does patient have a Living Will: No Does patient have a Durable POA for Healthcare: No - Code Status/Comfort Care Code Status Assessed: Yes Code Status: Full Code
--- NOTE | 2018-04-14 20:56 | RAD REPORT ---
EXAM DESCRIPTION: CTAbdomen Pelvis W Contrast - 04/14/2018 8:44 pm CLINICAL HISTORY: Abdominal pain. ABD PAIN COMPARISON: [facility] Protocol dated 04/03/2018 TECHNIQUE: Biphasic CT imaging of the abdomen and pelvis was performed with 100 ml non-ionic IV cont rast. All CT scans are performed using dose optimization technique as appropriate and may include automated exposure control or mA/KV adjustment according to patient size. FINDINGS: Calcified granuloma is present in the left lung base. Diffuse fatty liver is noted. The spleen, pancreas, adrenal glands are normal. Small benign right perez al cyst. No hydronephrosis or aggressive renal lesion. No bowel obstruction, free air, free fluid or abscess. A few pericolonic lymph nodes are noted in the left lower quadrant adjacent to the sigmoid colon, more prominent than on the comparative study. The appendix is not identified as a discrete structure, however, no secondary findings of appendicitis a re identified. No evidence of significant lymphadenopathy. Moderate fat containing right and small left inguinal hernias. No suspicious bony findings. IMPRESSION: Fatty liver. Mildly prominent pericolonic lymph nodes adjacent to the sigmoid colon. Advise followup colonoscopy f or further assessment.
[2018-04-14] MEDS ORDERED: ACETAMINOPHEN 500 MG TAB PO PRN (22:01)
[2018-04-14] MEDS: INSULIN -REGULAR HUMAN 50 UNIT/0.5 ML ML SQ SCH (22:01)
[2018-04-14] MEDS ORDERED: ONDANSETRON 4 MG/2 ML VIAL IV PRN (22:01)
[2018-04-14 22:02] VITALS: BMI 32.2
[2018-04-14] MEDS: CIPROFLOXACIN 400mg IV 400 MG/200 ML BAG IV SCH (22:59)
[2018-04-14] MEDS: NA CHLORIDE 0.9% 1,000 ML IV SCH (22:59)
[2018-04-14] MEDS: ALBUTEROL 2.5 MG/3 ML NEB SOL NEB PRN (23:20)
[2018-04-14] MEDS: IPRATROPIUM BROM 0.5MG/2.5ML NEB PRN (23:20)
[2018-04-15] MEDS: METRONIDAZOLE 500mg IVPB 500 MG/100 ML BAG IV SCH ×3 (00:40→17:02)
[2018-04-15 02:41] LABS: Urine Appearance CLEAR; Urine Bilirubin NEGATIVE (NEG); Urine Blood NEGATIVE (NEG); Urine Color YELLOW; Urine Glucose NEGATIVE (NEG); Urine Protein TRACE (NEG); Urine Specific Gravity >=1.030 (1.005-1.030); Urine Urobilinogen 0.2 mg/dL (0.2-1.0)
[2018-04-15 02:43] LABS: Urine Microscopic Reflex ORDER UMIC
[2018-04-15 02:57] LABS: Urine RBC NONE SEEN /HPF (NONE SEEN)
[2018-04-15 02:58] LABS: Urine Bacteria <20 /HPF (NONE SEEN); Urine Culture Reflex Order NOT NEEDED
[2018-04-15 06:24] LABS: BUN Blood Urea Nitrogen 13 mg/dL (7-18); Bicarbonate 31 mmol/L (21-32); Glucose Level 189 mg/dL (74-106); Magnesium 1.8 mg/dL (1.8-2.4); Potassium 3.9 mmol/L (3.5-5.1); Sodium Level 136 mmol/L (136-145)
[2018-04-15] MEDS ORDERED: MAGNESIUM SULFATE 1 gm IVPB 1 GM/100 ML BAG IV ONE (06:30)
[2018-04-15 06:37] LABS: Absolute Lymphocytes (CBC) 1.4 K/uL (0.7-4.9); Basophils % 0.2 % (0-1.3); Eosinophils % 0.5 % (0-4.4); Hematocrit 38.1 % (39.6-49.0); MPV 8.6 fL (7.6-11.3); Monocytes % 9.9 % (3.3-12.3); RBC Red Blood Cell Count 4.24 M/uL (4.33-5.43)
[2018-04-15 07:27] LABS: Urine Blood NEGATIVE (NEG); Urine Glucose NEGATIVE (NEG); Urine Protein 1+ (NEG); Urine pH 5.5 (5.0-7.0)
[2018-04-15] MEDS: INSULIN -REGULAR HUMAN 50 UNIT/0.5 ML ML SQ SCH ×4 (07:30→20:57)
[2018-04-15] MEDS: ALBUTEROL 2.5 MG/3 ML NEB SOL NEB PRN ×4 (07:43→23:54)
[2018-04-15] MEDS: IPRATROPIUM BROM 0.5MG/2.5ML NEB PRN ×4 (07:43→23:54)
[2018-04-15] MEDS: CIPROFLOXACIN 400mg IV 400 MG/200 ML BAG IV SCH ×2 (08:32→21:11)
[2018-04-15] MEDS: NA CHLORIDE 0.9% 1,000 ML IV SCH ×2 (08:32→21:11)
[2018-04-15] MEDS: ENOXAPARIN 40 MG/0.4 ML SQ SCH (08:33)
[2018-04-15] MEDS ORDERED: POTASSIUM 25 MEQ EFFERV TAB PO ONE (09:00)
[2018-04-15] MEDS ORDERED: PANTOPRAZOLE 40MG TABLET PO SCH (10:00)
--- NOTE | 2018-04-15 12:35 | EKG ---
Test Date: 2018-04-14 Test Time: 16:52:41 Quality Inspector: POOJA MEASUREMENT RESULTS: Intervals: Rate: 97 OR: 134 QRSD: 148 QT: 388 QTc: 492 Jordan: P: 72 OR: 134 QRS: -74 T: 60 INTERPRETIVE STATEMENTS: Normal sinus rhythm Right bundle branch block Left axis Abnormal ECG Compared to ECG 04/03/2018 12:49:20 no significant change from previous ECG Electronically Signed On 04-15-18 12:35:21 FLAT SCREEN WORKER by Ramirez Vickers
[2018-04-15] MEDS ORDERED: GLUCAGON 1 MG/VIAL IM PRN (14:05)
[2018-04-15] MEDS ORDERED: D50W 25 GM/50 ML SYRINGE IV PRN (14:05)
--- NOTE | 2018-04-15 16:13 | PN ---
Date of Progress Note: 04/15/2018 Subjective: The patient is seen and examined. Chart reviewed, and case discussed with RN and Dr. Pamella clark. The patient states that he had several bowel movements, which were loose and actually had some incontinence, was not able to make it to the bathroom in time. Medications: List reviewed. Physical Examination: Vital Signs: Temperature 97.8, heart rate 91, blood pressure 111/72, respirations 18, O2 of 92% on 2 L via nasal cannula. General: Awake, alert, oriented x3. Obese, BMI 32. CV: S1, S2. Regular rate and rhythm. Peripheral pulses present. Respiratory: Moving air well bilaterally. No wheezing. Gastrointestinal: Abdomen is soft. Mild tenderness to palpation. No distention. Positive bowel so unds. No guarding or rigidity. Extremities: No clubbing, cyanosis, or edema. Neurologic: Nonfocal. Cranial nerves 2 through 12 intact grossly. Speech is normal. Laboratory Data: Sodium 136, potassium 3.9, chloride 99, CO2 of 31, BUN 13, creatinine 0.72, glucose 189, calcium 8.1. WBC 10.5, H and H 12.5 and 38.1, platelets 191, neutrophils 76%. C diff assay is negative. Stool culture is pending. Blood culture is pending. Assessment: A 58-year-old male with: 1.Generalized abdominal pain, likely secondary to diarrhea. 2.Acute diarrhea, unclear etiology. Clostridium difficile screen is negative. Stool cultures are p ending. GI has been consulted. No history of irritable bowel syndrome. The patient has previous hi story of colonoscopy, unknown results. 3.Fatty liver disease. 4.Chronic obstructive pulmonary disease, chronic bronchitis, stable. 5.Diabetes mellitus type 2 with hyperglycemia without long-term use of insulin. 6.Essential hypertension, stable. 7.Obstructive sleep apnea. 8.Obesity, BMI 32. Plan: We will continue with IV fluids. Follow up on stool culture results. GI consultation. /SUREKHA Voice ID: [id number] Report ID: [id number]
[2018-04-16] MEDS: METRONIDAZOLE 500mg IVPB 500 MG/100 ML BAG IV SCH ×3 (01:55→16:14)
[2018-04-16] MEDS: IPRATROPIUM BROM 0.5MG/2.5ML NEB PRN ×2 (03:42→13:50)
[2018-04-16] MEDS: ALBUTEROL 2.5 MG/3 ML NEB SOL NEB PRN ×2 (03:42→13:50)
[2018-04-16] MEDS: NA CHLORIDE 0.9% 1,000 ML IV SCH ×2 (04:01→16:16)
[2018-04-16 06:31] LABS: BUN Blood Urea Nitrogen 6 mg/dL (7-18); Bicarbonate 31 mmol/L (21-32); Glucose Level 211 mg/dL (74-106); Magnesium 1.9 mg/dL (1.8-2.4); Potassium 3.6 mmol/L (3.5-5.1); Sodium Level 138 mmol/L (136-145)
[2018-04-16] MEDS ORDERED: POTASSIUM 25 MEQ EFFERV TAB PO ONE (06:34)
[2018-04-16] MEDS: INSULIN -REGULAR HUMAN 50 UNIT/0.5 ML ML SQ SCH ×3 (07:30→16:17)
[2018-04-16] MEDS: CIPROFLOXACIN 400mg IV 400 MG/200 ML BAG IV SCH (08:14)
[2018-04-16] MEDS: ENOXAPARIN 40 MG/0.4 ML SQ SCH (08:14)
[2018-04-16] MEDS ORDERED: HOME MED 1 EA UNK (Umeclidinium Brm/Vilanterol Tr [Anoro Ellipta 62.5-25 Mcg Inh] 1 PUFF) IH SCH (09:00)
[2018-04-16 13:43] VITALS: O2SAT 94
[2018-04-16 16:53] VITALS: BP 172/96; TEMP 97.3
--- NOTE | 2018-04-17 17:09 | DS ---
Date of Discharge: 04/16/2018 Mat Cutter: Dr. Claudio with GI. Discharge Diagnoses: 1. Acute abdominal pain, generalized. 2. Diarrhea. 3. Chronic obstructive pulmonary disease, chronic bronchitis. 4. Diabetes mellitus type 2, non-insulin requiring. 5. Essential hypertension. 6. Obstructive sleep apnea. 7. Obesity, BMI 32.2. Hospital Course: The patient is a 58-year-old male, who comes in with abdominal pain and diarrhea. The patient's diarrhea has been ongoing for the past several weeks. The patient does report chronic diarrhea. Has had previous workup by Dr. Santiago and has not followed with GI since then. CT scan of the abdomen and pelvis was done which was negative for any significant findings, did show some fatty liver disease, mild prominent pericolonic lymph nodes adjacent to the sigmoid colon. GI was consulted. Spoke with Dr. Claudio regarding patient's condition. Initially, patient's procalcitonin was elevated at 2.6. IV hydration was initiated. His procalcitonin improved. White count also normalized. The patient's mono screen was negative. The patient overall did well during the course of the hospital stay. He was able to tolerate a GI soft diet. He was instructed to follow up with GI as an outpatient. They did not recommend any inpatient procedures. The patient will need a colonoscopy to further elucidate his symptoms. The patient may have irritable bowel syndrome with diarrhea type and will need further workup and treatment by GI. The patient was then discharged to home in a stable condition. Activity: As tolerated. Medications: As per medication reconciliation list. Followup: Follow up with PCP 2-3 days. Follow up with GISELLE Barahona in 1 week. Return to ER for worsening condition. Medications: As per medication reconciliation list. Physical Examination: General: Awake, alert, oriented, no acute distress. Obese male. CV: S1, S2. No murmurs. Respiratory: Moving air well bilaterally. Gastrointestinal: Abdomen is soft, nontender, nondistended. Positive bowel sounds. Extremities: No clubbing, cyanosis, or edema. Neurologic: Nonfocal. SA/MODL Voice ID: [id number] Report ID: [id number] [facility]OUR[facility]ORIAL HOSPITALVeronica
== END 2018-04-16 19:19 | disposition home or self-care (01) ==
LOC: ER 16:18 → ERHOLD 20:36 → 2ND 21:04
PROVIDERS: ADMIT Internal Medicine; ATTEND Internal Medicine
DX: R10.84 Generalized abdominal pain (principal); R19.7 Diarrhea, unspecified; J44.9 Chronic obstructive pulmonary disease, unspecified; E11.9 Type 2 diabetes mellitus without complications; I10 Essential (primary) hypertension; G47.33 Obstructive sleep apnea (adult) (pediatric); E66.9 Obesity, unspecified; Z68.32 Body mass index [BMI] 32.0-32.9, adult; Z88.0 Allergy status to penicillin
CPT/HCPCS: 93005; 87040 ×2; 87045; 85025 ×2; 80048 ×3; 36415 ×2; 83735 ×2; 82550; 86308; 87205 ×4; 82962 ×8; 80076; 87046; 83605; 87493; 84484; 82553; 83690; 84145 ×2; 74177; 71045; 94760 ×4; 94660 ×2; 99285; Q9967; J1650 ×2; J3475; J7030 ×3; J0744 ×4; G0378 ×2; 81003; 81015

== ENCOUNTER 2018-05-30 07:35 | Emergency (ER) | payer OTHER ==
[2018-05-30] MEDS ORDERED: NA CHLORIDE 0.9% 1,000 ML ONE (09:06)
[2018-05-30 09:33] LABS: Absolute Lymphocytes (CBC) 1.6 K/uL (0.7-4.9); Absolute Monocytes 1.9 K/uL (0.1-1.3); Absolute Neutrophil 14.6 K/uL (1.8-8.0); Basophils % 0.4 % (0-1.3); Eosinophils % 0.1 % (0-4.4); Hematocrit 45.4 % (39.6-49.0); MPV 8.5 fL (7.6-11.3); Monocytes % 10.7 % (3.3-12.3); Protime INR 1.27; RBC Red Blood Cell Count 5.04 M/uL (4.33-5.43)
[2018-05-30 09:46] LABS: Urine Bacteria 20-50 /HPF (NONE SEEN); Urine Culture Reflex Order REFLEXED; Urine Mucus 2+ /HPF (NONE SEEN); Urine RBC <5 /HPF (NONE SEEN)
[2018-05-30 09:51] LABS: ALT/SGPT 25 U/L (12-78); AST/SGOT 13 U/L (15-37); Albumin 3.5 g/dL (3.4-5.0); Alkaline Phosphatase 109 U/L (45-117); BUN Blood Urea Nitrogen 13 mg/dL (7-18); Bicarbonate 27 mmol/L (21-32); Bilirubin Direct 0.3 mg/dL (0-0.2); Bilirubin Total 1.1 mg/dL (0.2-1.0); Glucose Level 207 mg/dL (74-106); Magnesium 1.6 mg/dL (1.8-2.4); NT PRO-BNP 246 pg/mL (<125); Potassium 3.9 mmol/L (3.5-5.1); Protein, Total 8.7 g/dL (6.4-8.2); Sodium Level 135 mmol/L (136-145); Troponin (Emerg Dept Use Only) < 0.02 ng/mL (0.0-0.045)
[2018-05-30] MEDS ORDERED: NA CHLORIDE 0.9% 2,000 ML ONE (10:17)
[2018-05-30] MEDS ORDERED: CEFTRIAXONE/SWI 2gm 2 GM/20 ML SYR IV ONE (10:30)
--- NOTE | 2018-05-30 10:42 | EKG ---
Test Date: 2018-05-30 Test Time: 08:17:43 Canary Breeder: DELFIN MEASUREMENT RESULTS: Intervals: Rate: 107 SC: 138 QRSD: 148 QT: 374 QTc: 499 [place]: P: 70 SC: 138 QRS: -83 T: 63 INTERPRETIVE STATEMENTS: Sinus tachycardia Right bundle branch block Left axis Abnormal ECG Compared to ECG 04/14/2018 16:52:41 Sinus rhythm no longer present Electronically Signed On 05-30-18 10:41:54 CDT by Ramirez iVckers
--- NOTE | 2018-05-30 11:00 | RAD REPORT ---
EXAM DESCRIPTION: CT - Abdomen Pelvis W Contrast - 05/30/2018 10:31 am CLINICAL HISTORY: Abdominal pain COMPARISON: CT imaging studies March 2018 TECHNIQUE: Biphasic, helical CT imaging of the abdomen and pelvis was performed following 100 ml non -ionic IV contrast. Oral contrast was given. Due to technical issues there was delay in initiating th e arterial phase of the study. All CT scans are performed using dose optimization technique as appropriate and may include automated exposure control or mA/KV adjustment according to patient size. FINDINGS: No suspicious findings in the lung bases. Liver shows a geographic fatty infiltration pattern that is similar to prior imaging. In segment VIII right lobe liver there is a 3.8 centimeter oval hypodense focus. No substantial change between arter ial and venous phases. This is not identifiable in either the March studies. Benign liver lesions such as hemangioma, adenoma or FNH do not typically develop over a short interval. No malignant histo ry is known for the patient. Patient apparently has an elevated white count. No focal splenic abnormality. No pancreatic abnormality seen. Gallbladder and biliary tree are also w ithout suspicious finding. Symmetric renal function is seen with no hydronephrosis or suspicious renal mass. No pyelonephritis o r acute parenchymal process. No bladder abnormalities. No adrenal abnormalities. No dilated bowel loops or bowel wall thickening. Minimal sigmoid diverticulosis is present without di verticulitis. An acute or active bowel process is not identifiable. No free air, free fluid or inflam matory stranding. No mass or bulky lymphadenopathy. Patient has large right-side and small left-side fat filled inguinal hernias. No acute hernia findings. No suspicious bony findings. IMPRESSION: A 3.8 centimeter oval hyperdense focus has developed in the superior right lobe of the l iver since the March imaging. This would not be typical for hemangioma, adenoma or focal nodular h yperplasia. The lesion is currently nonspecific. Neoplastic etiology cannot be excluded though there is no neopla stic history noted. With an elevated white count, focal infectious process of the liver would be poss ible. There were some technical issues with the examination which could potentially create an artifactual l iver process. Follow-up liver sonography or follow-up MR abdomen imaging could be performed to confir m a true liver lesion. Geographic fatty infiltration pattern of the liver similar to prior imaging. No acute GI or process. Patient has minimal diverticulosis but no definitive mass or diverticuliti s.
--- NOTE | 2018-05-30 11:29 | RAD REPORT ---
EXAM DESCRIPTION: Yulisa Single View05/30/2018 8:52 am CLINICAL HISTORY: Abdominal pain COMPARISON: March 2018 FINDINGS: The lungs appear clear of acute infiltrate. Calcified granulomas present the left lung. The heart is normal size IMPRESSION: No acute abnormalities displayed
[2018-05-30 11:32] LABS: Urine Blood 1+ (NEG); Urine Glucose NEGATIVE (NEG); Urine Protein 3+ (NEG); Urine Specific Gravity >1.030 (1.005-1.030)
--- NOTE | 2018-05-30 11:36 | ER ---
Nurse's Notes [facility] Name: Salas Srivastava Age: 58 yrs Sex: Male : 1960 Arrival Date: 05/30/2018 Time: 07:39 Bed 4 Private MD: TONIE WATTS Diagnosis: Other sepsis;Possible liver abscess Presentation: 05/30 07:45 Presenting complaint: Patient states: body aches, abd soreness, episodic diaphoresis ss and fatigue that began 2 days ago. Denies fever, cough, N/V/D. Transition of care: patient was not received from another setting of care. Onset of symptoms was May 28, 2018. Risk Assessment: Do you want to hurt yourself or someone else? Patient reports no desire to harm self or others. Initial Sepsis Screen: Does the patient meet any 2 criteria? RR > 20 per min. HR > 90 bpm. Does the patient have a suspected source of infection? No. Patient's initial sepsis screen is negative. Care prior to arrival: None. 07:45 Method Of Arrival: Ambulatory ss 07:45 Acuity: ESVIN 3 ss 07:51 Note Pt believes that he may be ill because of some pork that he may have undercooked. ss Triage Assessment: 07:45 General: Appears distressed, comfortable, obese, Behavior is calm, cooperative, bp appropriate for age. Pain: Denies pain. EENT: No deficits noted. Neuro: Level of Consciousness is awake, alert, obeys commands, Oriented to person, place, time, situation, Appropriate for age. Cardiovascular: No deficits noted. Respiratory: Airway is patent Respiratory effort is even, unlabored, Respiratory pattern is regular, symmetrical. GI: Reports upper abdominal pain. : No signs and/or symptoms were reported regarding the genitourinary system. Derm: No deficits noted. Musculoskeletal: Circulation, motion, and sensation intact. Range of motion: intact in all extremities. Historical: - Allergies: 07:50 PENICILLINS; ss - Home Meds: 07:50 prednisone 20 mg Oral tab [Active]; pantoprazole 40 mg Oral TbEC 1 tab once daily ss [Active]; metformin 1,000 mg Oral tab 1 tab 2 times per day [Active]; lisinopril 5 mg Oral tab 1 tab once daily for Hypertension [Active]; glimepiride 2 mg Oral tab [Active]; amlodipine 10 mg tab 1 tab once daily [Active]; Albuterol Inhl [Active]; acetazolamide 125 mg Oral tab [Active]; - PMHx: 07:50 COPD; Diabetes - NIDDM; Hypertension; Sleep Apnea; ss - Immunization history:: Adult Immunizations up to date, Flu vaccine is up to date. - Social history:: Smoking status: Patient/guardian denies using tobacco, the patient reports quitting approximately 3 years ago. - Ebola Screening: : Patient denies exposure to infectious person Patient denies travel to an Ebola-affected area in the 21 days before illness onset. Screenin:45 Abuse screen: Denies threats or abuse. Denies injuries from another. Nutritional bp screening: No deficits noted. Tuberculosis screening: No symptoms or risk factors identified. Fall Risk None identified. Assessment: 07:45 General: SEE TRIAGE NOTE. bp 08:45 Reassessment: PO CONTRAST COMPLETE, CT NOTIFIED. bp 10:20 Reassessment: PT TO CT WITH ELECTROLYSIS NEEDLE OPERATOR. bp 12:00 Reassessment: RESULTS PENDING, VS STABLE ON MONITOR. bp 14:00 Reassessment: TRANSFER IN PROCESS, VS STABLE ON MONITOR. bp 15:51 Reassessment: REPORT TO ROMÁN FARLEY AT [facility], TRANSPORT PENDING. bp 16:00 GI: Bowel sounds present X 4 quads. Abd is soft X 4 quads. bp 16:16 Reassessment: EMS AT B/S FOR TRANSPORT, PT RUBEN. bp Vital Signs: 07:50 BP 151 / 90; Pulse 112; Resp 21; Temp 99.4(TE); Pulse Ox 94% on R/A; Weight 106.59 kg; ss Height 5 ft. 11 in. (180.34 cm); Pain 2/10; 09:00 BP 162 / 87; Pulse 112; Resp 20; Pulse Ox 97% on NC; bp 10:00 BP 139 / 83; Pulse 104; Resp 14; Pulse Ox 97% ; bp 11:00 BP 164 / 94; Pulse 107; Resp 24; Pulse Ox 97% on NC; bp 12:00 BP 140 / 83; Pulse 108; Resp 24; Pulse Ox 94% ; bp 13:00 BP 155 / 99; Pulse 107; Resp 20; Pulse Ox 95% ; bp 14:00 BP 132 / 86; Pulse 118; Resp 18; Pulse Ox 95% ; bp 15:00 BP 156 / 97; Pulse 106; Resp 20; Pulse Ox 94% ; bp 07:50 Body Mass Index 32.78 (106.59 kg, 180.34 cm) ED Course: 07:39 Patient arrived in ED. mr 07:39 TONIE WATTS is Private Physician. mr 07:45 Patient has correct armband on for positive identification. Placed in gown. Bed in low bp position. Call light in reach. Side rails up X2. 07:49 Triage completed. ss 07:50 Arm band placed on right wrist. ss 07:56 Noé Singleton PA is PHCP. cp 07:56 Elvin Samuel MD is Attending Physician. cp 08:20 Derek Pena, MIGUELITO is Primary Nurse. bp 08:29 CT Abd/Pelvis - W/Contrast Sent. hb 08:35 EKG done, by windmill technician. reviewed by Noé SHAH. dt2 08:44 X-ray completed. Portable x-ray completed in exam room. Patient tolerated procedure ls3 well. 08:46 XRAY Chest (1 view) In Process Unspecified. EDMS 09:32 Radiology exam delayed due to lab results not completed at this time. (BUN/Creatinine). sw 10:32 CT Abd/Pelvis - W/Contrast In Process Unspecified. EDMS 11:35 Shadia Mariano MD is Hospitalizing Provider. cp 12:02 US Abdomen Limited In Process Unspecified. EDMS 15:57 No provider procedures requiring assistance completed. Patient transferred, IV remains bp in place. Administered Medications: 08:45 Drug: NS 0.9% 1000 ml Route: IV; Rate: 1 bolus; Site: right antecubital; bp 16:18 Follow up: IV Status: Completed infusion; IV Intake: 1000ml bp 10:10 Drug: NS 0.9% (30 ml/kg) 30 ml/kg Route: IV; Rate: bolus; Site: right antecubital; bp 16:18 Follow up: IV Status: Completed infusion; IV Intake: 3197ml bp 10:46 Drug: Rocephin - (cefTRIAXone) 2 grams Route: IVPB; Infused Over: 30 mins; Site: right bp antecubital; 16:18 Follow up: IV Status: Completed infusion; IV Intake: 20ml bp 14:25 Drug: vancoMYCIN 1 grams Route: IVPB; Infused Over: 2 hrs; Site: right antecubital; hb 16:16 Follow up: IV Status: Completed infusion; IV Intake: 250ml bp Intake: 16:16 IV: 250ml; Total: 250ml. bp 16:18 IV: 1000ml; Total: 1250ml. bp 16:18 IV: 3197ml; Total: 4447ml. bp 16:18 IV: 20ml; Total: 4467ml. bp Outcome: 11:35 Decision to Hospitalize by Provider. cp 13:48 ER care complete, transfer ordered by MD. cp 16:00 Transferred by ground EMS to [facility]. bp 16:00 Condition: stable 16:00 Instructed on the need for transfer. 16:19 Patient left the ED. bp Signatures: Dispatcher [employer] EDWV JavyOlga Shelby, Ale Leroy RN, Corey, PA PA cp Baxter, Heather, RN RN Derek Koo RN RN bp Teague, Danielle dt2 Harmony Lamar ls3
--- NOTE | 2018-05-30 11:36 | EDPHYS ---
Physician Documentation [facility] Name: Salas Srivastava Age: 58 yrs Sex: Male : 1960 Arrival Date: 05/30/2018 Time: 07:39 Bed 4 Private MD: TONIE WATTS ED Physician Elvin Samuel HPI: 05/30 08:13 This 58 yrs old Male presents to ER via Ambulatory with complaints of cp Abdominal Pain. 08:13 The patient presents with abdominal pain bilateral sides of abdomen. Onset: The cp symptoms/episode began/occurred 2 day(s) ago. The symptoms do not radiate. Associated signs and symptoms: Pertinent positives: sweats, decreased appetite, Pertinent negatives: chest pain, constipation, diarrhea, dysuria, fever, testicular pain, vomiting. 08:15 The symptoms are described as achy. cp Historical: - Allergies: 07:50 PENICILLINS; ss - Home Meds: 07:50 prednisone 20 mg Oral tab [Active]; pantoprazole 40 mg Oral TbEC 1 tab once daily ss [Active]; metformin 1,000 mg Oral tab 1 tab 2 times per day [Active]; lisinopril 5 mg Oral tab 1 tab once daily for Hypertension [Active]; glimepiride 2 mg Oral tab [Active]; amlodipine 10 mg tab 1 tab once daily [Active]; Albuterol Inhl [Active]; acetazolamide 125 mg Oral tab [Active]; - PMHx: 07:50 COPD; Diabetes - NIDDM; Hypertension; Sleep Apnea; ss - Immunization history:: Adult Immunizations up to date, Flu vaccine is up to date. - Social history:: Smoking status: Patient/guardian denies using tobacco, the patient reports quitting approximately 3 years ago. - Ebola Screening: : Patient denies exposure to infectious person Patient denies travel to an Ebola-affected area in the 21 days before illness onset. ROS: 08:20 Constitutional: Positive for chills, Negative for body aches, fever, poor PO intake. cp 08:20 Eyes: Negative for injury, pain, redness, and discharge. cp 08:20 ENT: Negative for drainage from ear(s), ear pain, sore throat, difficulty swallowing, difficulty handling secretions. 08:20 Cardiovascular: Negative for chest pain, edema, palpitations. 08:20 Respiratory: Negative for cough, shortness of breath, wheezing. 08:20 Abdomen/GI: Positive for abdominal pain, nausea, of the anterior aspect of left lateral abdomen and anterior aspect of right lateral abdomen, decreased appetite, Negative for vomiting, diarrhea, constipation, black/tarry stool, rectal bleeding. 08:20 Back: Negative for pain at rest, pain with movement, radiated pain. 08:20 : Negative for urinary symptoms, testicular pain 08:20 Skin: Negative for cellulitis, rash. 08:20 Neuro: Negative for altered mental status, dizziness, headache, weakness. 08:20 All other systems are negative. Exam: 08:25 ECG was reviewed by the Attending Physician. cp 08:27 Constitutional: The patient appears in no acute distress, alert, awake, cp non-diaphoretic, non-toxic, well developed, well nourished. 08:27 Head/Face: Normocephalic, atraumatic. Eyes: Pupils equal round and reactive to light, cp extra-ocular motions intact. Lids and lashes normal. Conjunctiva and sclera are non-icteric and not injected. Cornea within normal limits. Periorbital areas with no swelling, redness, or edema. ENT: Nares patent. No nasal discharge, no septal abnormalities noted. Tympanic membranes are normal and external auditory canals are clear. Oropharynx with no redness, swelling, or masses, exudates, or evidence of obstruction, uvula midline. Mucous membranes moist. Neck: Trachea midline, no thyromegaly or masses palpated, and no cervical lymphadenopathy. Supple, full range of motion without nuchal rigidity, or vertebral point tenderness. No Meningismus. Chest/axilla: Normal chest wall appearance and motion. Nontender with no deformity. No lesions are appreciated. 08:27 Cardiovascular: Rate: tachycardic, Rhythm: regular, Edema: is not appreciated, JVD: is not appreciated. 08:27 Respiratory: the patient does not display signs of respiratory distress, Respirations: normal, no use of accessory muscles, no retractions, no splinting, no tachypnea, labored breathing, is not present, Breath sounds: are clear throughout, no decreased breath sounds, no stridor, no wheezing. 08:27 Abdomen/GI: Inspection: abdomen appears normal, Bowel sounds: active, all quadrants, Palpation: soft, in all quadrants, mild abdominal tenderness, in the anterior aspect of left lateral abdomen and anterior aspect of right lateral abdomen, rebound tenderness, is not appreciated, voluntary guarding, is not appreciated, involuntary guarding, is not appreciated. 08:27 Back: ROM is normal, CVA tenderness, is absent. 08:27 Skin: cellulitis, is not appreciated, no rash present. 08:27 Neuro: Orientation: to person, place \T\ time. Mentation: is normal, Cerebellar function: is grossly normal, Motor: moves all fours, strength is normal, Sensation: is normal. Vital Signs: 07:50 BP 151 / 90; Pulse 112; Resp 21; Temp 99.4(TE); Pulse Ox 94% on R/A; Weight 106.59 kg; ss Height 5 ft. 11 in. (180.34 cm); Pain 2/10; 09:00 BP 162 / 87; Pulse 112; Resp 20; Pulse Ox 97% on NC; bp 10:00 BP 139 / 83; Pulse 104; Resp 14; Pulse Ox 97% ; bp 11:00 BP 164 / 94; Pulse 107; Resp 24; Pulse Ox 97% on NC; bp 12:00 BP 140 / 83; Pulse 108; Resp 24; Pulse Ox 94% ; bp 13:00 BP 155 / 99; Pulse 107; Resp 20; Pulse Ox 95% ; bp 14:00 BP 132 / 86; Pulse 118; Resp 18; Pulse Ox 95% ; bp 15:00 BP 156 / 97; Pulse 106; Resp 20; Pulse Ox 94% ; bp 07:50 Body Mass Index 32.78 (106.59 kg, 180.34 cm) MDM: 07:58 Patient medically screened. cp 11:30 Physician consultation: Shadia Mariano MD was called at 11:27, was contacted at 11:27, cp regarding admission, to the medical/surgical unit. patient's condition, would like further tests performed, US of liver. 12:50 Data reviewed: vital signs, nurses notes, lab test result(s), EKG, radiologic studies, cp CT scan, plain films, ultrasound. 12:50 Test interpretation: by ED physician or midlevel provider: ECG, plain radiologic cp studies. Response to treatment: the patient's symptoms have mildly improved after treatment. 13:15 ED course: Discussed results of labs, CT abdomen/pelvis and US with DR Mariano who cp recommends transfer for Interventional Radiology consult due to concern for hepatic abscess. 05/30 08:08 Order name: Basic Metabolic Panel; Complete Time: 10:05 cp 05/30 10:05 Interpretation: Normal except: NA 135; GLUC 207; GFR 75. cp 05/30 08:08 Order name: CBC with Diff; Complete Time: 09:40 cp 05/30 09:41 Interpretation: Normal except: WBC 18.3; CLARI% 79.8; LYM% 9.0; NEUT A 14.6; MNA 1.9. cp 05/30 08:08 Order name: LFT's; Complete Time: 10:05 cp 05/30 11:08 Interpretation: Normal except: AST 13; BILIT 1.1; BILID 0.3; TP 8.7; GLOB 5.2; A/G 0.7. cp 05/30 08:08 Order name: Magnesium; Complete Time: 10:05 cp 05/30 08:08 Order name: NT PRO-BNP; Complete Time: 10:05 cp 05/30 08:08 Order name: PT-INR; Complete Time: 09:40 cp 05/30 08:08 Order name: Troponin (emerg Dept Use Only); Complete Time: 10:05 cp 05/30 08:08 Order name: Procalcitonin; Complete Time: 10:05 cp 05/30 10:05 Interpretation: Abnormal: Procalcitonin 2.08. cp 05/30 08:08 Order name: Lactate; Complete Time: 11:06 cp 05/30 11:06 Interpretation: Reviewed. cp 05/30 08:08 Order name: Influenza Screen (a \T\ B); Complete Time: 11:06 cp 05/30 08:08 Order name: Blood Culture Adult (2) cp 05/30 08:08 Order name: Urine Microscopic Only cp 05/30 09:47 Interpretation: Normal except: UBACT 20-50; SQEPI 5-10. cp 05/30 09:48 Order name: Urine Culture EDMS 05/30 10:48 Order name: Urine Dipstick--Ancillary (enter results); Complete Time: 12:43 bd 05/30 12:43 Interpretation: Normal except: USPGR >1.030; UKET 1+; UBLD 1+; UPROT 3+. cp 05/30 08:08 Order name: EKG; Complete Time: 08:09 cp 05/30 08:08 Order name: Cardiac monitoring; Complete Time: 08:52 cp 05/30 08:08 Order name: EKG - Nurse/Tech; Complete Time: 08:21 cp 05/30 08:08 Order name: IV Saline Lock; Complete Time: 08:52 cp 05/30 08:08 Order name: Labs collected and sent; Complete Time: 09:29 cp 05/30 08:08 Order name: O2 Per Protocol; Complete Time: 08:52 cp 05/30 08:08 Order name: O2 Sat Monitoring; Complete Time: 08:52 cp 05/30 08:08 Order name: Urine Dipstick-Ancillary (obtain specimen); Complete Time: 09:29 cp 05/30 08:11 Order name: CT Abd/Pelvis - W/Contrast; Complete Time: 11:06 cp 05/30 08:11 Order name: XRAY Chest (1 view); Complete Time: 12:43 cp 05/30 09:27 Order name: Labs - recollect needed; Complete Time: 10:03 bd 05/30 11:29 Order name: US Abdomen Limited; Complete Time: 12:43 cp EC:25 Rate is 107 beats/min. Rhythm is regular. NM interval is normal. QRS interval is cp prolonged at 148 msec. QT interval is normal. T waves are Flattened in lead aVL. Interpreted by me. Reviewed by me. Administered Medications: 08:45 Drug: NS 0.9% 1000 ml Route: IV; Rate: 1 bolus; Site: right antecubital; bp 16:18 Follow up: IV Status: Completed infusion; IV Intake: 1000ml bp 10:10 Drug: NS 0.9% (30 ml/kg) 30 ml/kg Route: IV; Rate: bolus; Site: right antecubital; bp 16:18 Follow up: IV Status: Completed infusion; IV Intake: 3197ml bp 10:46 Drug: Rocephin - (cefTRIAXone) 2 grams Route: IVPB; Infused Over: 30 mins; Site: right bp antecubital; 16:18 Follow up: IV Status: Completed infusion; IV Intake: 20ml bp 14:25 Drug: vancoMYCIN 1 grams Route: IVPB; Infused Over: 2 hrs; Site: right antecubital; hb 16:16 Follow up: IV Status: Completed infusion; IV Intake: 250ml bp Disposition: 16:24 Co-signature as Attending Physician, Elvin Samuel MD I agree with the assessment and kdr plan of care. Disposition: 05/30/18 13:[address] [facility]. Diagnosis are Other sepsis, Possible liver abscess. - Reason for transfer: Higher level of care. - Accepting physician is Doctor. - Condition is Stable. - Problem is new. - Symptoms have improved. Signatures: Dispatcher [employer] EDMS Day Denton Kevin, MD MD [facility] Sonia De La O RN RN ss Noé Singleton PA PA cp Shameka Dee, RN RN Derek Pena RN RN bp Corrections: (The following items were deleted from the chart) 09:41 09:40 Normal except: WBC 18.3; CLARI% 79.8; LYM% 9.0; NEUT A 14.6. cp cp 13:47 11:35 Hospitalization Ordered by Shadia Mariano MD for Inpatient Admission. Preliminary cp diagnosis is Other sepsis; Urinary tract infection, site not specified. Bed requested for Telemetry/MedSurg (Inpatient). Status is Inpatient Admission. Condition is Stable. Problem is new. Symptoms have improved. UTI on Admission? Yes. cp 16:19 13:48 05/30/2018 13:[address] [facility]. Diagnosis is bp Other sepsis; Possible liver abscess. Reason for transfer: Higher level of care. Accepting physician is Doctor. Condition is Stable. Problem is new. Symptoms have improved. cp
--- NOTE | 2018-05-30 12:36 | RAD REPORT ---
EXAM DESCRIPTION: US - Abdomen Exam Limited - 05/30/2018 12:01 pm CLINICAL HISTORY: Abdominal pain. COMPARISON: May 30, 2018 cat scan FINDINGS: An approximately 3 centimeter hypoechoic mass is present within the right lobe of the live r. A 1.4 centimeter additional hypoechoic lesion seen within the right lobe. Liver has an increased echotexture. A gallstone is not seen. Gallbladder wall is not thickened. Biliary tree is normal caliber. A small amount of portal vein thrombus suspected . IMPRESSION: A 3 centimeter hypoechoic mass within the right lobe of the liver may represent an absce ss or benign complex cyst. 1.4 centimeter hypoechoic mass within the right lobe has a nonspecific appearance and can be evaluate d on a subsequent ultrasound in 3 months to assess stability Fatty liver Small amount of portal vein thrombosis
[2018-05-30] MEDS ORDERED: VANCOMYCIN 1 GM/VIAL ONE (14:22)
[2018-05-30] MEDS ORDERED: NA CHLORIDE 0.9% 250 ML ONE (14:22)
[2018-05-30 16:23] VITALS: TEMP 99.4
[2018-05-30 16:31] VITALS: BP 156/97; O2SAT 94
== END 2018-05-30 16:19 | disposition short-term general hospital (02) ==
LOC: ER 07:35
DX: A41.89 Other specified sepsis (principal); R10.9 Unspecified abdominal pain; J44.9 Chronic obstructive pulmonary disease, unspecified; E11.9 Type 2 diabetes mellitus without complications; I10 Essential (primary) hypertension; Z79.84 Long term (current) use of oral hypoglycemic drugs; Z88.0 Allergy status to penicillin
CPT/HCPCS: 96365; 96367; 96361; 93005; 87040 ×2; 87088; 85025; 87086; 80048; 36415; 83735; 85610; 80076; 83605; 84484; 84145; 83880; 87804 ×2; 74177; 71045; 76705; 99285; 96366; Q9967; J0696; J7030 ×2; 81003; 81015; 87205

== ENCOUNTER 2018-09-10 18:19 | Inpatient (IN) | payer OTHER ==
--- OUTSIDE RECORDS SUMMARY | 2018-09-10 18:22 | XMS REPORT | Clinical Summary ---
:1960 Author Organization [facility] Address [address] [place] [address] Care Team Providers Name Role Phone Unavailable Primary Care Provider Unavailable Allergies Active Allergy Reactions Severity Noted Date Comments Penicillins 05/30/2018 Medications Medication Sig Dispensed Refills Start Date End Date Status metFORMIN Take 1,000 mg 0 Active (GLUCOPHAGE) 1000 by mouth 2 MG tablet (two) times daily with breakfast and dinner. amLODIPine Take 10 mg by 0 Active (NORVASC) 10 MG mouth daily. tablet pantoprazole Take 40 mg by 0 Active (PROTONIX) 40 MG mouth daily. tablet lisinopril Take 1 tablet 30 tablet 0 06/06/2018 Active (PRINIVIL,ZESTRIL) (40 mg total) 40 MG tablet by mouth daily. cefpodoxime Take 1 tablet 60 tablet 0 06/05/2018 Active (VANTIN) 200 MG (200 mg total) tablet by mouth 2 (two) times daily. lisinopril Take 5 mg by 0 06/05/2018 Discontinued (PRINIVIL,ZESTRIL) mouth daily. 5 MG tablet Active Problems Problem Noted Date Liver abscess 05/30/2018 Encounters Date Type Specialty Care Team Description 05/31/2018 Travel 05/30/2018 - Hospital Encounter General Internal Lily Lopes Liver abscess (Primary Dx); 06/05/2018 Mery Sampson MD Sepsis, due to unspecified organism (HCC); Lucy Cash Chronic bronchitis, unspecified chronic bronchitis type ( HCC); MD Eli Streptococcus viridans infection; Shameka Browning Recurrent bacteremia; MD Carolin Poor dentition; Streptococcal septicemia (HCC) after 09/09/2017 Social History Tobacco Use Types Packs/Day Years Used Date Former Smoker Comments: Quit 3 years ago Alcohol Use Drinks/Week oz/Week Comments No Alcohol Habits Answer Date Recorded How often do you have a drink containing alcohol? Never 05/31/2018 How many drinks containing alcohol do you have on a typical Not asked day when you are drinking? How often do you have six or more drinks on one occasion? Not asked Sex Assigned at Date Recorded Not on file Job Start Date Occupation Industry Not on file Not on file Not on file Travel History Travel Start Travel End No recent travel history available. Last Filed Vital Signs Vital Sign Reading Time Taken Blood Pressure 180/97 06/05/2018 3:59 PM CDT Pulse 77 06/05/2018 3:59 PM CDT Temperature 36.5 C (97.7 F) 06/05/2018 3:59 PM CDT Respiratory Rate 18 06/05/2018 3:59 PM CDT Oxygen Saturation 94% 06/05/2018 3:59 PM CDT Inhaled Oxygen Concentration - - Weight 108.5 kg (239 lb 1.6 oz) 05/30/2018 8:00 PM CDT Height 180.3 cm (5' 11") 05/30/2018 8:00 PM CDT Body Mass Index 33.35 05/30/2018 8:00 PM CDT Plan of Treatment Not on file Procedures Procedure Name Priority Date/Time Associated Comments Diagnosis REPORT OF PROCEDURE - 06/07/2018 11:32 ENDOSCOPY SCAN AM CDT POCT-GLUCOSE METER Routine 06/05/2018 5:38 Results for this PM CDT procedure are in the results section. POCT-GLUCOSE METER Routine 06/05/2018 11:28 Results for this AM CDT procedure are in the results section. CT ABDOMEN/PELVIS WITH STAT 06/05/2018 10:00 Results for this IV CONTRAST AM CDT procedure are in the results section. ECG 12-LEAD Routine 06/05/2018 8:15 Results for this AM CDT procedure are in the results section. CBC W/PLT COUNT & AUTO Routine 06/05/2018 3:51 Results for this DIFFERENTIAL AM CDT procedure are in the results section. PT/APTT Routine 06/05/2018 3:51 Results for this AM CDT procedure are in the results section. BASIC METABOLIC PANEL Routine 06/05/2018 3:51 Results for this (7) AM CDT procedure are in the results section. CBC W/PLT COUNT & AUTO Routine 06/05/2018 3:51 Results for this DIFFERENTIAL AM CDT procedure are in the results section. POCT-GLUCOSE METER Routine 06/04/2018 7:43 Results for this PM CDT procedure are in the results section. POCT-GLUCOSE METER Routine 06/04/2018 5:12 Results for this PM CDT procedure are in the results section. POCT-GLUCOSE METER Routine 06/04/2018 11:03 Results for this AM CDT procedure are in the results section. POCT-GLUCOSE METER Routine 06/04/2018 8:29 Results for this AM CDT procedure are in the results section. BASIC METABOLIC PANEL Routine 06/04/2018 6:51 Results for this (7) AM CDT procedure are in the results section. CBC W/PLT COUNT & AUTO Routine 06/04/2018 4:05 Results for this DIFFERENTIAL AM CDT procedure are in the results section. CBC W/PLT COUNT & AUTO Routine 06/04/2018 4:05 Results for this DIFFERENTIAL AM CDT procedure are in the results section. LACTIC ACID, VENOUS STAT 06/04/2018 4:05 Results for this AM CDT procedure are in the results section. VANCOMYCIN LEVEL, Timed 06/03/2018 11:43 Results for this TROUGH PM CDT procedure are in the results section. POCT-GLUCOSE METER Routine 06/03/2018 11:15 Results for this PM CDT procedure are in the results section. ECHOCARDIOGRAM REPORT - 06/03/2018 9:20 SCAN PM CDT POCT-GLUCOSE METER Routine 06/03/2018 6:02 Results for this PM CDT procedure are in the results section. POCT-GLUCOSE METER Routine 06/03/2018 12:59 Results for this PM CDT procedure are in the results section. POCT-GLUCOSE METER Routine 06/03/2018 9:20 Results for this AM CDT procedure are in the results section. POCT-GLUCOSE METER Routine 06/02/2018 10:28 Results for this PM CDT procedure are in the results section. POCT-GLUCOSE METER Routine 06/02/2018 6:28 Results for this PM CDT procedure are in the results section. 2D ECHO W/ DOPPLER Routine 06/02/2018 4:58 Results for this (CW/PW/COLOR) PM CDT procedure are in the results section. POCT-GLUCOSE METER Routine 06/02/2018 12:15 Results for this PM CDT procedure are in the results section. POCT-GLUCOSE METER Routine 06/02/2018 7:42 Results for this AM CDT procedure are in the results section. PHOSPHORUS Routine 06/02/2018 4:14 Results for this AM CDT procedure are in the results section. MAGNESIUM Routine 06/02/2018 4:14 Results for this AM CDT procedure are in the results section. POCT-GLUCOSE METER Routine 06/01/2018 9:27 Results for this PM CDT procedure are in the results section. POCT-GLUCOSE METER Routine 06/01/2018 6:21 Results for this PM CDT procedure are in the results section. POCT-GLUCOSE METER Routine 06/01/2018 2:53 Results for this PM CDT procedure are in the results section. US DRAINAGE WITH CATH Routine 06/01/2018 1:30 Results for this PLACEMENT PM CDT procedure are in the results section. VANCOMYCIN LEVEL, Timed 06/01/2018 11:20 Results for this TROUGH AM CDT procedure are in the results section. POCT-GLUCOSE METER Routine 06/01/2018 8:25 Results for this AM CDT procedure are in the results section. CBC W/PLT COUNT & AUTO Routine 06/01/2018 3:45 Results for this DIFFERENTIAL AM CDT procedure are in the results section. HIV-1 ANTIGEN WITH Routine 06/01/2018 3:45 Results for this HIV-1/2 ANTIBODY AM CDT procedure are in the results section. HEMOGLOBIN A1C Routine 06/01/2018 3:45 Results for this AM CDT procedure are in the results section. LACTIC ACID, VENOUS Routine 06/01/2018 3:45 Results for this AM CDT procedure are in the results section. CBC W/PLT COUNT & AUTO Routine 06/01/2018 3:45 Results for this DIFFERENTIAL AM CDT procedure are in the results section. PHOSPHORUS Routine 06/01/2018 3:45 Results for this AM CDT procedure are in the results section. MAGNESIUM Routine 06/01/2018 3:45 Results for this AM CDT procedure are in the results section. HEPATIC FUNCTION PANEL Routine 06/01/2018 3:45 Results for this AM CDT procedure are in the results section. BASIC METABOLIC PANEL Routine 06/01/2018 3:45 Results for this (7) AM CDT procedure are in the results section. BODY FLUID CULTURE + Routine 06/01/2018 12:04 Results for this GRAM STAIN AM CDT procedure are in the results section. POCT-GLUCOSE METER Routine 05/31/2018 10:28 Results for this PM CDT procedure are in the results section. PT/APTT STAT 05/31/2018 12:35 Results for this PM CDT procedure are in the results section. POCT-GLUCOSE METER Routine 05/31/2018 11:52 Results for this AM CDT procedure are in the results section. POCT-GLUCOSE METER Routine 05/31/2018 8:14 Results for this AM CDT procedure are in the results section. CBC W/PLT COUNT & AUTO Routine 05/31/2018 4:23 Results for this DIFFERENTIAL AM CDT procedure are in the results section. LACTIC ACID, VENOUS Routine 05/31/2018 4:23 Results for this AM CDT procedure are in the results section. CBC W/PLT COUNT & AUTO Routine 05/31/2018 4:23 Results for this DIFFERENTIAL AM CDT procedure are in the results section. PHOSPHORUS Routine 05/31/2018 4:23 Results for this AM CDT procedure are in the results section. MAGNESIUM Routine 05/31/2018 4:23 Results for this AM CDT procedure are in the results section. HEPATIC FUNCTION PANEL Routine 05/31/2018 4:23 Results for this AM CDT procedure are in the results section. BASIC METABOLIC PANEL Routine 05/31/2018 4:23 Results for this (7) AM CDT procedure are in the results section. CBC W/PLT COUNT & AUTO Routine 05/31/2018 12:17 Results for this DIFFERENTIAL AM CDT procedure are in the results section. LACTIC ACID, VENOUS STAT 05/31/2018 12:17 Results for this AM CDT procedure are in the results section. CBC W/PLT COUNT & AUTO Routine 05/31/2018 12:17 Results for this DIFFERENTIAL AM CDT procedure are in the results section. HEPATIC FUNCTION PANEL Routine 05/31/2018 12:17 Results for this AM CDT procedure are in the results section. BASIC METABOLIC PANEL Routine 05/31/2018 12:17 Results for this (7) AM CDT procedure are in the results section. POCT-GLUCOSE METER Routine 05/30/2018 10:09 Results for this PM CDT procedure are in the results section. BLOOD CULTURE STAT 05/30/2018 8:47 Results for this PM CDT procedure are in the results section. BLOOD CULTURE STAT 05/30/2018 8:38 Results for this PM CDT procedure are in the results section. PROCALCITONIN STAT 05/30/2018 8:37 Results for this PM CDT procedure are in the results section. LACTIC ACID, VENOUS STAT 05/30/2018 8:37 Results for this PM CDT procedure are in the results section. after 09/09/2017 Results EKG-SCANNED (06/07/2018 11:32 AM CDT) Narrative Performed At POC-Glucose meter (06/05/2018 5:38 PM CDT)Only the most recent of22 resultswithin the time period is included. POC-Glucose Meter 150 (H)Comment: TESTED AT 70 - 110 mg/dL [facility] [address] [facility] [address] Specimen Blood Performing Organization Address City/State/Zipcode Phone Number [address] abdomen/pelvis with IV contrast (06/05/2018 10:00 AM CDT) Specimen Narrative Performed At FINAL REPORT [employer] ABDOMINAL AND PELVIS CT DATED 06/05/2018 COMPARISON: SET examination dated May 30, CLINICAL INFORMATION:Abd pain, fever, abscess suspected TECHNIQUE:Axial images of the abdomen and pelvis were obtained from diaphragm to the pubic symphysis with intravenous contrast. This exam was performed according to our departmental dose-optimization program, which includes automated exposure control, adjustment of the mA and/or kV according to patient size and/or use of interactive reconstruction technique. COMMENT: Liver and spleen are enlarged.Liver measures 17.3 cm in the right midclavicular line. Spleen measures 14.3 cm in length. There is diffusely decreased attenuation liver suggesting fatty hepatic infiltrate, predominantly in the left hepatic lobe. A percutaneous drainage catheter is noted in the right hepatic lobe. Previously noted to liver abscess is not well seen. Gallbladder is contracted. No gallstone or biliary dilatation is noted. Pancreas and adrenals are unremarkable. Both kidneys are normal in size and functioning. No hydronephrosis, hydroureter, urolithiasis is seen. A 1.6 cm cyst is seen in a few pole right kidney. Diverticular disease is seen in the large bowel. There is minimal wall thickening in the sigmoid colon. No inflammatory changes seen in the sigmoid mesocolon. No peridiverticular abscess or pneumoperitoneum is present. The small bowel is unremarkable. Appendix is not visualized. No mass, adenopathy or ascites is present. IMPRESSION: 1. Hepatosplenomegaly. 2. Findings suggestive of fatty hepatic infiltrate. 3. Interval resolution of the previously noted liver abscess. 4. Persistent sigmoid diverticulitis. Signed: Bhavin Nino MD Report Verified Date/Time:06/05/2018 19:11:58 Reading Location: [facility] B1 C013Y CT Body Reading Room Procedure Note Interface, External Ris In - 06/05/2018 7:14 PM CDT FINAL REPORT ABDOMINAL AND PELVIS CT DATED 06/05/2018 COMPARISON: SET examination dated May 30, CLINICAL INFORMATION: Abd pain, fever, abscess suspected TECHNIQUE: Axial images of the abdomen and pelvis were obtained from diaphragm to the pubic symphysis with intravenous contrast. This exam was performed according to our departmental dose-optimization program, which includes automated exposure control, adjustment of the mA and/or kV according to patient size and/or use of interactive reconstruction technique. COMMENT: Liver and spleen are enlarged. Liver measures 17.3 cm in the right midclavicular line. Spleen measures 14.3 cm in length. There is diffusely decreased attenuation liver suggesting fatty hepatic infiltrate, predominantly in the left hepatic lobe. A percutaneous drainage catheter is noted in the right hepatic lobe. Previously noted to liver abscess is not well seen. Gallbladder is contracted. No gallstone or biliary dilatation is noted. Pancreas and adrenals are unremarkable. Both kidneys are normal in size and functioning. No hydronephrosis, hydroureter, urolithiasis is seen. A 1.6 cm cyst is seen in a few pole right kidney. Diverticular disease is seen in the large bowel. There is minimal wall thickening in the sigmoid colon. No inflammatory changes seen in the sigmoid mesocolon. No peridiverticular abscess or pneumoperitoneum is present. The small bowel is unremarkable. Appendix is not visualized. No mass, adenopathy or ascites is present. IMPRESSION: 1. Hepatosplenomegaly. 2. Findings suggestive of fatty hepatic infiltrate. 3. Interval resolution of the previously noted liver abscess. 4. Persistent sigmoid diverticulitis. Signed: Bhavin Nino MD Report Verified Date/Time: 06/05/2018 19:11:58 Reading Location: [facility] B1 C013Y CT Body Reading Room Performing Organization Address [facility] Phone Number [employer] [facility] RIS ECG 12 lead (06/05/2018 8:15 AM CDT) Specimen Narrative Performed At Ventricular Rate 75 BPM GE MUSE Atrial Rate 75 BPM P-R Interval 144 ms QRS Duration 162 ms Q-T Interval 442 ms QTC Calculation(Bazett) 493 ms P Fleming 72 degrees R Fleming 266 degrees T Fleming 42 degrees Normal sinus rhythm Right bundle branch block Right superior QRS axis Nonspecific T wave abnormality Prolonged QT Abnormal ECG No previous ECGs available Confirmed by MD ANSARI YOCHAI ([id number]) on 06/05/2018 4:02:01 PM Procedure Note Interface, External Ris In - 06/05/2018 4:02 PM CDT Ventricular Rate 75 BPM Atrial Rate 75 BPM P-R Interval 144 ms QRS Duration 162 ms Q-T Interval 442 ms QTC Calculation(Bazett) 493 ms P Fleming 72 degrees R Fleming 266 degrees T Fleming 42 degrees Normal sinus rhythm Right bundle branch block Right superior QRS axis Nonspecific T wave abnormality Prolonged QT Abnormal ECG No previous ECGs available Confirmed by MD ANSARI YOCHAI ([id number]) on 06/05/2018 4:02:01 PM Performing Organization Address [facility] Phone Number [employer] MUSE PT/aPTT (06/05/2018 3:51 AM CDT)Only the most recent of2 resultswithin the time period is included. Protime 14.5 11.7 - 14.7 seconds [facility] INR 1.1 <=5.9 [facility] PTT 32.6 22.5 - 36.0 seconds [facility] Specimen Blood Narrative Performed At RECOMMENDED COUMADIN/WARFARIN INR THERAPY [facility] RANGES STANDARD DOSE: 2.0 - 3.0 Includes: PROPHYLAXIS for venous thrombosis, systemic embolization; TREATMENT for venous thrombosis and/or pulmonary embolus. HIGH RISK: Target INR is 2.5-3.5 for patients with mechanical heart valves. Performing Organization Address City/State/Zipcode Phone Number [facility] [address] [place] [address] CENTER CBC with platelet count + automated diff (06/05/2018 3:51 AM CDT)Only the most recent of5 resultswithin the time period is included. WBC 6.3 3.5 - 10.5 K/L [facility] RBC 4.31 (L) 4.63 - 6.08 M/L [facility] Hemoglobin 12.4 (L) 13.7 - 17.5 GM/DL [facility] Hematocrit 41.2 40.1 - 51.0 % [facility] MCV 95.6 (H) 79.0 - 92.2 fL [facility] MCH 28.8 25.7 - 32.2 pg [facility] MCHC 30.1 (L) 32.3 - 36.5 GM/DL [facility] RDW 13.8 11.6 - 14.4 % [facility] Platelets 283 150 - 450 K/CU MM [facility] MPV 9.7 9.4 - 12.4 fL [facility] nRBC 0 0 - 0 /100 WBC [facility] % Neutros 65 % [facility] % Lymphs 21 % [facility] % Monos 9 % [facility] % Eos 4 % [facility] % Baso 1 % [facility] # Neutros 4.04 1.78 - 5.38 K/L [facility] # Lymphs 1.31 (L) 1.32 - 3.57 K/L [facility] # Monos 0.57 0.30 - 0.82 K/L [facility] # Eos 0.24 0.04 - 0.54 K/L [facility] # Baso 0.04 0.01 - 0.08 K/L [facility] Immature Granulocytes-Relative 1 0 - 1 % [facility] Specimen Blood Performing Organization Address City/State/Zipcode Phone Number [address] [address] [phone] [place] Basic Metabolic Panel (06/05/2018 3:51 AM CDT)Only the most recent of5 resultswithin the time period is included. Sodium 139 136 - 145 meq/L [facility] Potassium 4.0 3.5 - 5.1 meq/L [facility] Chloride 100 98 - 107 meq/L [facility] CO2 33 (H) 22 - 29 meq/L [facility] BUN 9 7 - 21 mg/dL [facility] Creatinine 0.72 0.57 - 1.25 mg/dL [facility] Glucose 162 (H) 70 - 105 mg/dL [facility] Calcium 9.3 8.4 - 10.2 mg/dL [facility] EGFR 113Comment: ESTIMATED GFR IS mL/min/1.73 sq m [facility] NOT ACCURATE CREATININE [facility] CLEARANCE IN PREDICTING GLOMERULAR FILTRATION RATE. ESTIMATED GFR IS NOT APPLICABLE FOR DIALYSIS PATIENTS. Specimen Blood Performing Organization Address City/State/Zipcode Phone Number [address] [address] [phone] [place] Lactic acid, venous (06/04/2018 4:05 AM CDT)Only the most recent of5 resultswithin the time period is included. Lactate, Venous 0.7Comment: Specimen 0.5 - 2.2 mmol/L [facility] hemolyzed [facility] Specimen Blood Performing Organization Address City/[facility]/Zipcode Phone Number [facility] [address], [place] [address] [phone] [place] Vancomycin level, trough (06/03/2018 11:43 PM CDT)Only the most recent of2 resultswithin the time period is included. Vancomycin Tr 15.2 10.0 - 20.0 ug/mL [facility] Specimen Blood Performing Organization Address City/[facility] Phone Number [facility] [address] [place] [address] [phone] [place] ECHOCARDIOGRAM REPORT - SCAN (06/03/2018 9:20 PM CDT) Narrative Performed At 2D Echo W/Doppler(CW/PW/Color) (06/02/2018 4:58 PM CDT) Ejection Fraction [facility] ECHO [facility] Specimen Narrative Performed At Transthoracic Echocardiography Report (TTE) [facility] Demographics Patient Name Pillo LENTZ of Study 06/02/2018 PJ [id number] GenderMale Visit Number [id number] Unknown [id number] Room Number 722 Number Date of Birth1960Referring Physician Lucy Cash Age58 year(s)Law Enforcement Officer Helen Carter [facility] AnalystIzoPhysician CHRIS Campos Procedure Type of Study TTE procedure:2DECHO W DOPPLER(CW/PW/COLOR) (Routine) Indications:Endocarditis. Clinical History HGB 12.6 HCT 39.5 % ADD DX: RECURRENT BACTEREMIA Contrast Medium: Definity. Height: 71 inches Weight: 108.41 kg (239 lbs) BSA: 2.27 m^2 BMI: 33.33 kg/m^2 HR: 73 bpm BP: 131/78 mmHg Summary 1. All of the LV segments contract normally . LVEF by Abraham's method of disk assessment is normal (55-60%) . 2. Normal diastolic function. 3. RV chamber size is mildly enlarged . Global RV systolic function is low normal . 4. Estimated peak systolic PA pressure is 45-50 mmHg The estimated RA pressure by IVC dynamics 11-15mmHg . Previous Study No prior exam available for comparison. Signature Findings Left Ventricle The left ventricle is chamber size (by vol index) is normal (male - LVED vol - 34-74ml/m2). Al l of the LV segments contract normally . LV EF by Abraham's method of disk assessment is no rmal (55-60%) . No rmal diastolic function. The left ventricle is ch arabella size (by PSLAX dimension) is normal (male - LV IDd 4.2-5.8cm) . Normal LV wall thickness. Normal (c ardiac index 2-3 L/min/m2) cardiac output state at rest is noted. LV endocardium is adequately vi sualized with IV ultrasound enhancing agent. Left AtriumLA size is normal (16-34 ml/m2) . Right VentricleRV chamber size is mildly enlarged . Gl obal RV systolic function is low normal . Right Atrium RA size is normal. Aortic Valve Normal AoV structure and function. A trace of aortic regurgitation. Mitral Valve Normal MV structure. Tricuspid ValveTV structure is normal. Es timated peak systolic PA pressure is 45-50 mmHg + RA pressure . Mi ld tricuspid regurgitation. Pulmonic Valve Normal PV structure and function. AortaAortic root size (SInus of Valsalva diameter) is no rmal . Pr oximal ascending aorta size is normal . PericardiumNo significant pericardial effusion is visualized. IVC/SVC/PA/PV/PleuralThe estimated RA pressure by IVC dynamics 11-15mmHg . Chambers/Structures Left Atrium LA Volume: 53 ml LA Vol. Index: 23 ml/m^2 Left Ventricle LVIDd: 5.84 cm LV Septum Diastolic: 0.98 cm LV PW Diastolic: 0.8 cm LVOT Diameter: 2.1 cm Aorta Ao Root S of Isabella.: 3.31 cm Doppler/Quantitative Measurements Mitral Valve MV Peak E-Wave: 0.95 m/sMV Peak A-Wave: 0.86 m/s E/A Ratio: 1.1 Peak Gradient: 3.62 mmHg Deceleration Time: 175.1 msec MV Luis Antonio. Peak: Tissue Doppler E' Lateral Velocity: 0.12 m/s E/E': 8 Aortic Valve Peak Velocity: 1.85 m/sMean Velocity: 1.19 m/s Peak Gradient: 13.74 mmHgMean Gradient: 6.35 mmHg AV Area (continuity): 2.24 cm^2 AV VTI: 39.05 cm AV DVI: 0.65 LVOT Peak Velocity: 1.24 m/s Peak Gradient: 6.17 mmHg Mean Velocity: 0.8 m/sMean Gradient: 3.04 mmHg LVOT Diameter: 2.1 cm LVOT VTI: 25.28 cm LVOT Area: 3.46 cm^2LVOT SV:87.52 ml LVOT CO: 6.39 l/min LVOT CI: 2.81 l/min/m^2 Tricuspid Valve TR Velocity: 3.39 m/s TR Gradient: 45.89 mmHg Procedure Note Interface, External Ris In - 06/03/2018 3:07 PM CDT Transthoracic Echocardiography Report (TTE) Demographics Patient Name SALAS LENTZ Date of Study 06/02/2018 PJ Gender Male Visit Number [id number] Race Unknown Room Number 722 Number Date of 1960 Referring Physician Lucy Cash Age 58 year(s) Law Enforcement Officer Helen Carter [facility] Academic Affairs Vice President Deric Holguin Interpreting Physician CHRIS Lawrence Procedure Type of Study TTE procedure:2DECHO W DOPPLER(CW/PW/COLOR) (Routine) Indications:Endocarditis. Clinical History HGB 12.6 HCT 39.5 % ADD DX: RECURRENT BACTEREMIA Contrast Medium: Definity. Height: 71 inches Weight: 108.41 kg (239 lbs) BSA: 2.27 m^2 BMI: 33.33 kg/m^2 HR: 73 bpm BP: 131/78 mmHg Summary 1. All of the LV segments contract normally . LVEF by Abraham's method of disk assessment is normal (55-60%) . 2. Normal diastolic function. 3. RV chamber size is mildly enlarged . Global RV systolic function is low normal . 4. Estimated peak systolic PA pressure is 45-50 mmHg The estimated RA pressure by IVC dynamics 11-15mmHg . Previous Study No prior exam available for comparison. Signature Findings Left Ventricle The left ventricle is chamber size (by vol index) is normal (male - LVED vol - 34-74ml/m2). All of the LV segments contract normally . LVEF by Abraham's method of disk assessment is normal (55-60%) . Normal diastolic function. The left ventricle is chamber size (by PSLAX dimension) is normal (male - LVIDd 4.2-5.8cm) . Normal LV wall thickness. Normal (cardiac index 2-3 L/min/m2) cardiac output state at rest is noted. LV endocardium is adequately visualized with IV ultrasound enhancing agent. Left Atrium LA size is normal (16-34 ml/m2) . Right Ventricle RV chamber size is mildly enlarged . Global RV systolic function is low normal . Right Atrium RA size is normal. Aortic Valve Normal AoV structure and function. A trace of aortic regurgitation. Mitral Valve Normal MV structure. Tricuspid Valve TV structure is normal. Estimated peak systolic PA pressure is 45-50 mmHg + RA pressure . Mild tricuspid regurgitation. Pulmonic Valve Normal PV structure and function. Aorta Aortic root size (SInus of Valsalva diameter) is normal . Proximal ascending aorta size is normal . Pericardium No significant pericardial effusion is visualized. IVC/SVC/PA/PV/Pleural The estimated RA pressure by IVC dynamics 11-15mmHg . Chambers/Structures Left Atrium LA Volume: 53 ml LA Vol. Index: 23 ml/m^2 Left Ventricle LVIDd: 5.84 cm LV Septum Diastolic: 0.98 cm LV PW Diastolic: 0.8 cm LVOT Diameter: 2.1 cm Aorta Ao Root S of Isabella.: 3.31 cm Doppler/Quantitative Measurements Mitral Valve MV Peak E-Wave: 0.95 m/s MV Peak A-Wave: 0.86 m/s E/A Ratio: 1.1 Peak Gradient: 3.62 mmHg Deceleration Time: 175.1 msec MV Luis Antonio. Peak: Tissue Doppler E' Lateral Velocity: 0.12 m/s E/E': 8 Aortic Valve Peak Velocity: 1.85 m/s Mean Velocity: 1.19 m/s Peak Gradient: 13.74 mmHg Mean Gradient: 6.35 mmHg AV Area (continuity): 2.24 cm^2 AV VTI: 39.05 cm AV DVI: 0.65 LVOT Peak Velocity: 1.24 m/s Peak Gradient: 6.17 mmHg Mean Velocity: 0.8 m/s Mean Gradient: 3.04 mmHg LVOT Diameter: 2.1 cm LVOT VTI: 25.28 cm LVOT Area: 3.46 cm^2 LVOT SV:87.52 ml LVOT CO: 6.39 l/min LVOT CI: 2.81 l/min/m^2 Tricuspid Valve TR Velocity: 3.39 m/s TR Gradient: 45.89 mmHg Performing Organization Address City/[facility]/Zipcode Phone Number [facility] Phosphorus (06/02/2018 4:14 AM CDT)Only the most recent of3 resultswithin the time period is included. Phosphorus 3.9 2.3 - 4.7 mg/dL [facility] Specimen Blood Performing Organization Address City/[facility]/Zipcode Phone Number [place] [phone] [place] [address] CENTER Magnesium (06/02/2018 4:14 AM CDT)Only the most recent of3 resultswithin the time period is included. Magnesium 1.7 1.6 - 2.6 mg/dL [facility] Specimen Blood Performing Organization Address City/State/Zipcode Phone Number [facility] [address] [place] [address] [phone] CENTER US drainage with cath placement (06/01/2018 1:30 PM CDT) Specimen Narrative Performed At FINAL REPORT [employer] INDICATION: 58-year-old male with abdominal pain, fevers, and suspected liver abscess. Request for immature to percutaneous drainage catheter placement. COMPARISON: Outside facility CT May 30, 2018. TECHNIQUE: Ultrasound-guided placement of 10 Grenadian drainage catheter in right hepatic lobe 4 cm septated collection. FINDINGS: The procedure was explained to the patient and informed consent was signed. The patient was positioned supine and preliminary images confirmed a safe window to the right hepatic lobe collection. Timeout was performed. To sedate the patient Versed and Fentanyl were administered, as described below. The patient's skin was prepped and draped in standard sterile fashion. 2% lidocaine was used for local anesthesia. Using a right anterolateral (intercostal) and ultrasound guidance, a 19 gauge introducer needle was advanced into the fluid collection. Pus was encountered. A guide wire was placed and the introducer needle removed. Tract was dilated with a 6 Grenadian, 8 Grenadian, and then a 10 Grenadian dilator. Then a 10 Grenadian multisidehole drainage catheter was placed over the guidewire into the collection. Catheter was pigtailed and ultrasound confirmed tip of the catheter within the targeted collection. Catheter was sutured to the skin and connected to bulb suction. Patient tolerated procedure well and was transferred back to his hospital room. PROCEDURAL SEDATION: Procedural sedation was used with Versed 1.0 mg IV and Fentanyl 50 mcg IV administered. The department of radiology nurse was present at the time of procedure. Monitored cardiorespiratory function during conscious sedation was performed under the radiologist's supervision. Total monitoring time was approximately 45 minutes. IMPRESSION: Ultrasound guided placement of 10 Grenadian drainage catheter in right hepatic lobe abscess. Signed: Zach Harris MD Report Verified Date/Time:05/31/2018 17:58:48 Reading Location: [facility] [id number] Ultrasound Reading Room Procedure Note Interface, External Ris In - 06/01/2018 2:00 PM CDT FINAL REPORT INDICATION: 58-year-old male with abdominal pain, fevers, and suspected liver abscess. Request for immature to percutaneous drainage catheter placement. COMPARISON: Outside facility CT May 30, 2018. TECHNIQUE: Ultrasound-guided placement of 10 Grenadian drainage catheter in right hepatic lobe 4 cm septated collection. FINDINGS: The procedure was explained to the patient and informed consent was signed. The patient was positioned supine and preliminary images confirmed a safe window to the right hepatic lobe collection. Timeout was performed. To sedate the patient Versed and Fentanyl were administered, as described below. The patient's skin was prepped and draped in standard sterile fashion. 2% lidocaine was used for local anesthesia. Using a right anterolateral (intercostal) and ultrasound guidance, a 19 gauge introducer needle was advanced into the fluid collection. Pus was encountered. A guide wire was placed and the introducer needle removed. Tract was dilated with a 6 Grenadian, 8 Grenadian, and then a 10 Grenadian dilator. Then a 10 Grenadian multisidehole drainage catheter was placed over the guidewire into the collection. Catheter was pigtailed and ultrasound confirmed tip of the catheter within the targeted collection. Catheter was sutured to the skin and connected to bulb suction. Patient tolerated procedure well and was transferred back to his hospital room. PROCEDURAL SEDATION: Procedural sedation was used with Versed 1.0 mg IV and Fentanyl 50 mcg IV administered. The department of radiology nurse was present at the time of procedure. Monitored cardiorespiratory function during conscious sedation was performed under the radiologist's supervision. Total monitoring time was approximately 45 minutes. IMPRESSION: Ultrasound guided placement of 10 Grenadian drainage catheter in right hepatic lobe abscess. Signed: Zach Harris MD Report Verified Date/Time: 05/31/2018 17:58:48 Reading Location: [facility] [id number] Ultrasound Reading Room Performing Organization Address City/State/Zipcode Phone Number [facility] HIV-1 Antigen with HIV-1/2 Antibody (06/01/2018 3:45 AM CDT) HIV-1 Antigen with HIV 1&2 Nonreactive Nonreactive [facility] Specimen Blood Performing Organization Address City/State/Zipcode Phone Number [facility] [address] [place] [phone] [place] Hemoglobin A1c (06/01/2018 3:45 AM CDT) Hemoglobin A1C 7.5 (H) 4.3 - 6.1 % [facility] Specimen Blood Performing Organization Address City/[facility] Phone Number [facility] [address] [place] [address] [phone] [place] Hepatic function panel (06/01/2018 3:45 AM CDT)Only the most recent of3 resultswithin the time period is included. Protein, Total 7.9Comment: Specimen 6.0 - 8.3 gm/dL [facility] hemolyzed [facility] Albumin 3.7Comment: Specimen 3.5 - 5.0 g/dL [facility] slightly hemolyzed [facility] Total Bilirubin 0.4Comment: Specimen 0.2 - 1.2 mg/dL [facility] Bil[facility], Direct 0.2Comment: Specimen 0.1 - 0.5 mg/dL [facility] hemolyzed [facility] Alkaline Phosphatase 100 40 - 150 U/L [facility] AST 24Comment: Specimen 5 - 34 U/L [facility] slightly hemolyzed [facility] ALT 21Comment: Specimen 6 - 55 U/L [facility] slightly hemolyzed [facility] Specimen Blood Performing Organization Address City/[facility]/Zipcode Phone Number [facility] [address] [place] [phone] [place] Body fluid culture + gram stain (06/01/2018 12:04 AM CDT) Result No growth [facility] Gram Stain Result 2+ White blood cells seen [facility] Gram Stain Result No organisms seen [facility] Specimen Body Fluid Performing Organization Address [facility] Phone Number [facility] [address] [place] [address] [phone] [place] Blood Culture - Routine (Left Venipuncture) (05/30/2018 8:47 PM CDT)Only the most recent of2 resultswithin the time period is included. Result No growth in 5 days [facility] Specimen Blood Performing Organization Address [facility] Phone Number [facility] [address] [place] [address] [place] Procalcitonin (05/30/2018 8:37 PM CDT) Procalcitonin 2.54 (H) <0.05 ng/mL [facility] Specimen Blood Narrative Performed At [facility] (ng/mL) [facility] Low:0.05-0.50 Intermediate: 0.51-2.00 High: >=2.[address] [facility] Phone Number [facility] [address] [place] [phone] [place] after 09/09/2017 Insurance Payer Benefit Plan / Group Subscriber ID Type Phone Address MEDICARE MEDICARE A B xxxxxxxxxxx Medicare Advance Directives For more information, please contact:[address] [phone] Code Status Date Activated Date Inactivated Comments Full Code 05/30/2018 6:14 PM 06/06/2018 1:00 AM This code status was determined by: Patient
--- OUTSIDE RECORDS SUMMARY | 2018-09-10 18:23 | XMS REPORT ---
:1960 Author Organization [facility] Address [address] [place] [address] Care Team Providers Name Role Phone DARRICK WANG Unavailable Unavailable Problems This patient has no known problems. Allergies, Adverse Reactions, Alerts This patient has no known allergies or adverse reactions. Medications This patient has no known medications. Results Test Description Test Time Test Comments Text Results Atomic Results Result Comments CT, ABDOMEN 2018-06-05 19:11:00 FINAL REPORT ABDOMINAL AND PELVIS CT DATED [...] adenopathy or ascites is present. IMPRESSION: 1. Hepatosplenomegaly.2. Findings suggestive of fatty hepatic infiltrate.3. Interval resolution of the previously noted liver abscess.4. Persistent sigmoid diverticulitis. Signed: Bhavin Nino MDReport Verified Date/Time: 06/05/2018 19:11:58 Reading Location: [facility] B1 C013Y CT Body Reading Room -GLUCOSE METER 2018-06-05 17:47:00 Test Item Value Reference Range Comments POC-GLUCOSE METER (BEAKER) (test 150 mg/dL 70-110 TESTED AT [facility] [address] [place] [address] tptr=5952) [facility] [address] POCT-GLUCOSE [id number] 11:41:00 Test Item Value Reference Range Comments POC-GLUCOSE METER (BEAKER) 244 mg/dL 70-110 TESTED AT [address] (test ktag=3888) [facility] [address] BASIC METABOLIC [id number] 04:47:00 Test Item Value Reference Range Comments SODIUM (BEAKER) (test 139 meq/L 136-145 llyf=615) POTASSIUM (BEAKER) (test 4.0 meq/L 3.5-5.1 sztp=783) CHLORIDE (BEAKER) (test 100 meq/L 98-107 snue=810) CO2 (BEAKER) (test 33 meq/L 22-29 ivut=956) BLOOD UREA NITROGEN 9 mg/dL 7-21 (BEAKER) (test xdvx=241) CREATININE (BEAKER) (test 0.72 mg/dL 0.57-1.25 zrfx=020) GLUCOSE RANDOM (BEAKER) 162 mg/dL 70-105 (test ekwn=299) CALCIUM (BEAKER) (test 9.3 mg/dL 8.4-10.2 lpsc=786) EGFR (BEAKER) (test 113 mL/min/1.73 sq m ESTIMATED GFR IS NOT bczv=1766) ACCURATE CREATININE CLEARANCE IN PREDICTING GLOMERULAR FILTRATION RATE. ESTIMATED GFR IS NOT APPLICABLE FOR DIALYSIS PATIENTS. [id number] 04:32:00 Test Item Value Reference Range Comments PROTIME (BEAKER) (test afcn=769) 14.5 seconds 11.7-14.7 INR (BEAKER) (test zemn=687) 1.1 <=5.9 PARTIAL THROMBOPLASTIN TIME (BEAKER) (test 32.6 seconds 22.5-36.0 gacc=599) RECOMMENDED COUMADIN/WARFARIN INR THERAPY RANGESSTANDARD DOSE: 2.0 - 3.0 Includes: PROPHYLAXIS forvenous thrombosis, systemic embolization; TREATMENT for venous thrombosis and/or pulmonary embolus.HIGH RISK: Target INR is 2.5-3.5 for patients with mechanical heart valves.CBC W/PLT COUNT & AUTO [id number] 04:16:00 Test Item Value Reference Range Comments WHITE BLOOD CELL COUNT (BEAKER) (test xwgn=678) 6.3 K/ L 3.5-10.5 RED BLOOD CELL COUNT (BEAKER) (test pmtp=315) 4.31 M/ L 4.63-6.08 HEMOGLOBIN (BEAKER) (test tkpc=833) 12.4 GM/DL 13.7-17.5 HEMATOCRIT (BEAKER) (test mcba=606) 41.2 % 40.1-51.0 MEAN CORPUSCULAR VOLUME (BEAKER) (test chye=084) 95.6 fL 79.0-92.2 MEAN CORPUSCULAR HEMOGLOBIN (BEAKER) (test 28.8 pg 25.7-32.2 inlm=239) MEAN CORPUSCULAR HEMOGLOBIN CONC (BEAKER) (test 30.1 GM/DL 32.3-36.5 mzuu=368) RED CELL DISTRIBUTION WIDTH (BEAKER) (test 13.8 % 11.6-14.4 djsx=758) PLATELET COUNT (BEAKER) (test jwoc=160) 283 K/CU MM 150-450 MEAN PLATELET VOLUME (BEAKER) (test wlni=170) 9.7 fL 9.4-12.4 NUCLEATED RED BLOOD CELLS (BEAKER) (test 0 /100 WBC 0-0 zbdb=394) NEUTROPHILS RELATIVE PERCENT (BEAKER) (test 65 % kici=496) LYMPHOCYTES RELATIVE PERCENT (BEAKER) (test 21 % mwpi=082) MONOCYTES RELATIVE PERCENT (BEAKER) (test 9 % eovc=794) EOSINOPHILS RELATIVE PERCENT (BEAKER) (test 4 % dbzs=799) BASOPHILS RELATIVE PERCENT (BEAKER) (test 1 % wawm=905) NEUTROPHILS ABSOLUTE COUNT (BEAKER) (test 4.04 K/ L 1.78-5.38 bwnb=372) LYMPHOCYTES ABSOLUTE COUNT (BEAKER) (test 1.31 K/ L 1.32-3.57 htno=883) MONOCYTES ABSOLUTE COUNT (BEAKER) (test 0.57 K/ L 0.30-0.82 lagh=048) EOSINOPHILS ABSOLUTE COUNT (BEAKER) (test 0.24 K/ L 0.04-0.54 xkrl=984) BASOPHILS ABSOLUTE COUNT (BEAKER) (test 0.04 K/ L 0.01-0.08 fmcy=814) IMMATURE GRANULOCYTES-RELATIVE PERCENT (BEAKER) 1 % 0-1 (test ufml=7238) BLOOD [id number] 02:00:00 Test Item Value Reference Range Comments CULTURE (BEAKER) (test tovf=0578) No growth in 5 days BLOOD [id number] 02:00:00 Test Item Value Reference Range Comments CULTURE (BEAKER) (test cvhk=1822) No growth in 5 days POCT-GLUCOSE [id number] 00:55:00 Test Item Value Reference Range Comments POC-GLUCOSE METER (BEAKER) 272 mg/dL 70-110 TESTED AT [address] (test uwnu=4434) [place] [address] POCT-GLUCOSE [id number] 17:16:00 Test Item Value Reference Range Comments POC-GLUCOSE METER (BEAKER) 104 mg/dL 70-110 TESTED AT [address] (test ghcq=1273) [place] [address] POCT-GLUCOSE [id number] 11:30:00 Test Item Value Reference Range Comments POC-GLUCOSE METER (BEAKER) 150 mg/dL 70-110 TESTED AT [address] (test lmok=6952) [place] [address] BODY FLUID CULTURE + GRAM [id number] 09:42:00 Test Item Value Reference Range Comments CULTURE (BEAKER) (test jrpi=5855) No growth GRAM STAIN RESULT (BEAKER) (test 2+ White blood cells seen idcb=0323) GRAM STAIN RESULT (BEAKER) (test No organisms seen dnfn=97964) POCT-GLUCOSE [id number] 08:33:00 Test Item Value Reference Range Comments POC-GLUCOSE METER (BEAKER) 174 mg/dL 70-110 TESTED AT [address] (test ycaw=1889) [place] [id number] BASIC METABOLIC [id number] 08:21:00 Test Item Value Reference Range Comments SODIUM (BEAKER) (test 139 meq/L 136-145 wnpg=990) POTASSIUM (BEAKER) (test 4.0 meq/L 3.5-5.1 vkax=558) CHLORIDE (BEAKER) (test 99 meq/L 98-107 tbui=801) CO2 (BEAKER) (test 32 meq/L 22-29 erea=420) BLOOD UREA NITROGEN 7 mg/dL 7-21 (BEAKER) (test lgfh=316) CREATININE (BEAKER) (test 0.68 mg/dL 0.57-1.25 vwyl=842) GLUCOSE RANDOM (BEAKER) 157 mg/dL 70-105 (test wexj=773) CALCIUM (BEAKER) (test 10.0 mg/dL 8.4-10.2 vsks=925) EGFR (BEAKER) (test 121 mL/min/1.73 sq m ESTIMATED GFR IS NOT ugpk=0168) ACCURATE CREATININE CLEARANCE IN PREDICTING GLOMERULAR FILTRATION RATE. ESTIMATED GFR IS NOT APPLICABLE FOR DIALYSIS PATIENTS. LACTIC ACID, [id number] 04:43:00 Test Item Value Reference Range Comments LACTATE BLOOD VENOUS (2) 0.7 mmol/L 0.5-2.2 Specimen slightly hemolyzed (BEAKER) (test fcan=4568) CBC W/PLT COUNT & AUTO [id number] 04:33:00 Test Item Value Reference Range Comments WHITE BLOOD CELL COUNT (BEAKER) (test cqpy=716) 5.9 K/ L 3.5-10.5 RED BLOOD CELL COUNT (BEAKER) (test cpte=476) 4.16 M/ L 4.63-6.08 HEMOGLOBIN (BEAKER) (test okup=505) 11.8 GM/DL 13.7-17.5 HEMATOCRIT (BEAKER) (test wqhp=426) 38.7 % 40.1-51.0 MEAN CORPUSCULAR VOLUME (BEAKER) (test psvk=785) 93.0 fL 79.0-92.2 MEAN CORPUSCULAR HEMOGLOBIN (BEAKER) (test 28.4 pg 25.7-32.2 kkmh=629) MEAN CORPUSCULAR HEMOGLOBIN CONC (BEAKER) (test 30.5 GM/DL 32.3-36.5 xafr=964) RED CELL DISTRIBUTION WIDTH (BEAKER) (test 14.0 % 11.6-14.4 ktkc=698) PLATELET COUNT (BEAKER) (test ovni=713) 252 K/CU MM 150-450 MEAN PLATELET VOLUME (BEAKER) (test xcsy=479) 9.6 fL 9.4-12.4 NUCLEATED RED BLOOD CELLS (BEAKER) (test 0 /100 WBC 0-0 lnip=586) NEUTROPHILS RELATIVE PERCENT (BEAKER) (test 64 % rvjh=113) LYMPHOCYTES RELATIVE PERCENT (BEAKER) (test 23 % itpb=608) MONOCYTES RELATIVE PERCENT (BEAKER) (test 9 % pyvd=100) EOSINOPHILS RELATIVE PERCENT (BEAKER) (test 4 % thla=529) BASOPHILS RELATIVE PERCENT (BEAKER) (test 1 % cynr=840) NEUTROPHILS ABSOLUTE COUNT (BEAKER) (test 3.79 K/ L 1.78-5.38 zkms=715) LYMPHOCYTES ABSOLUTE COUNT (BEAKER) (test 1.34 K/ L 1.32-3.57 nayy=701) MONOCYTES ABSOLUTE COUNT (BEAKER) (test 0.50 K/ L 0.30-0.82 udvu=512) EOSINOPHILS ABSOLUTE COUNT (BEAKER) (test 0.22 K/ L 0.04-0.54 poip=074) BASOPHILS ABSOLUTE COUNT (BEAKER) (test 0.03 K/ L 0.01-0.08 qyde=595) IMMATURE GRANULOCYTES-RELATIVE PERCENT (BEAKER) 1 % 0-1 (test fxsz=5821) VANCOMYCIN LEVEL, [id number] 04:12:00 Test Item Value Reference Range Comments VANCOMYCIN TROUGH (BEAKER) (test dbkg=806) 15.2 ug/mL 10.0-20.0 POCT-GLUCOSE [id number] 23:38:00 Test Item Value Reference Range Comments POC-GLUCOSE METER (BEAKER) 136 mg/dL 70-110 TESTED AT [address] (test wrfm=5722) [facility] [address] POCT-GLUCOSE [id number] 18:13:00 Test Item Value Reference Range Comments POC-GLUCOSE METER (BEAKER) 135 mg/dL 70-110 TESTED AT [address] (test dgwf=9757) [facility] [address] POCT-GLUCOSE [id number] 13:08:00 Test Item Value Reference Range Comments POC-GLUCOSE METER (BEAKER) 199 mg/dL 70-110 TESTED AT [address] (test bzxj=4906) [facility] [address] POCT-GLUCOSE [id number] 09:23:00 Test Item Value Reference Range Comments POC-GLUCOSE METER (BEAKER) 160 mg/dL 70-110 TESTED AT [address] (test njdn=9035) [facility] [address] POCT-GLUCOSE [id number] 22:34:00 Test Item Value Reference Range Comments POC-GLUCOSE METER (BEAKER) 264 mg/dL 70-110 TESTED AT [address] (test bnam=5095) [facility] [address] POCT-GLUCOSE [id number] 18:30:00 Test Item Value Reference Range Comments POC-GLUCOSE METER (BEAKER) 138 mg/dL 70-110 TESTED AT [address] (test yaee=4851) [facility] [address] POCT-GLUCOSE [id number] 12:17:00 Test Item Value Reference Range Comments POC-GLUCOSE METER (BEAKER) 199 mg/dL 70-110 TESTED AT [address] (test oyiu=0818) [facility] [address] POCT-GLUCOSE [id number] 07:43:00 Test Item Value Reference Range Comments POC-GLUCOSE METER (BEAKER) 184 mg/dL 70-110 TESTED AT [address] (test arhf=0251) [facility] [address] [id number] 05:48:00 Test Item Value Reference Range Comments PHOSPHORUS (BEAKER) (test ljyl=177) 3.9 mg/dL 2.3-4.7 [id number] 05:48:00 Test Item Value Reference Range Comments MAGNESIUM (BEAKER) (test pivf=585) 1.7 mg/dL 1.6-2.6 POCT-GLUCOSE [id number] 21:30:00 Test Item Value Reference Range Comments POC-GLUCOSE METER (BEAKER) 207 mg/dL 70-110 TESTED AT [address] (test hftl=0866) [facility] [address] POCT-GLUCOSE [id number] 18:48:00 Test Item Value Reference Range Comments POC-GLUCOSE METER (BEAKER) 228 mg/dL 70-110 TESTED AT [address] (test efev=1204) [place] [address] POCT-GLUCOSE [id number] 14:57:00 Test Item Value Reference Range Comments POC-GLUCOSE METER (BEAKER) 173 mg/dL 70-110 TESTED AT [address] (test qtfl=4751) [place] [address] VANCOMYCIN LEVEL, [id number] 12:16:00 Test Item Value Reference Range Comments VANCOMYCIN TROUGH (BEAKER) (test ehgs=418) 8.5 ug/mL 10.0-20.0 HEMOGLOBIN [id number] 11:05:00 Test Item Value Reference Range Comments HEMOGLOBIN A1C (BEAKER) (test wrck=865) 7.5 % 4.3-6.1 POCT-GLUCOSE [id number] 08:31:00 Test Item Value Reference Range Comments POC-GLUCOSE METER (BEAKER) 168 mg/dL 70-110 TESTED AT [address] (test ybem=7789) [place] [address] HIV-1 ANTIGEN WITH HIV-1/2 [id number] 05:14:00 Test Item Value Reference Range Comments HIV-1 ANTIGEN WITH HIV 1\T\2 ANTIBODY (2) Nonreactive Nonreactive (BEAKER) (test vxnu=3653) LACTIC ACID, [id number] 04:59:00 Test Item Value Reference Range Comments LACTATE BLOOD VENOUS (2) 0.7 mmol/L 0.5-2.2 Specimen slightly hemolyzed (BEAKER) (test wort=4815) [id number] 04:33:00 Test Item Value Reference Range Comments MAGNESIUM (BEAKER) (test 1.9 mg/dL 1.6-2.6 Specimen slightly hemolyzed kelc=116) [id number] 04:33:00 Test Item Value Reference Range Comments PHOSPHORUS (BEAKER) (test 3.6 mg/dL 2.3-4.7 Specimen slightly hemolyzed tumx=772) BASIC METABOLIC [id number] 04:33:00 Test Item Value Reference Range Comments SODIUM (BEAKER) (test 138 meq/L 136-145 eqhu=683) POTASSIUM (BEAKER) (test 4.1 meq/L 3.5-5.1 Specimen slightly iihp=573) hemolyzed CHLORIDE (BEAKER) (test 101 meq/L 98-107 fqlz=406) CO2 (BEAKER) (test 24 meq/L 22-29 obzi=757) BLOOD UREA NITROGEN 15 mg/dL 7-21 (BEAKER) (test dabs=721) CREATININE (BEAKER) (test 0.76 mg/dL 0.57-1.25 Specimen slightly ahyk=454) hemolyzed GLUCOSE RANDOM (BEAKER) 164 mg/dL 70-105 (test bqaz=935) CALCIUM (BEAKER) (test 9.9 mg/dL 8.4-10.2 ysnb=683) EGFR (BEAKER) (test 106 mL/min/1.73 sq m ESTIMATED GFR IS NOT nxrp=4803) ACCURATE CREATININE CLEARANCE IN PREDICTING GLOMERULAR FILTRATION RATE. ESTIMATED GFR IS NOT APPLICABLE FOR DIALYSIS PATIENTS. HEPATIC FUNCTION [id number] 04:33:00 Test Item Value Reference Range Comments TOTAL PROTEIN (BEAKER) (test 7.9 gm/dL 6.0-8.3 Specimen slightly hemolyzed wyfj=991) ALBUMIN (BEAKER) (test 3.7 g/dL 3.5-5.0 Specimen slightly hemolyzed hegx=9348) BILIRUBIN TOTAL (BEAKER) (test 0.4 mg/dL 0.2-1.2 Specimen slightly hemolyzed pfke=502) BILIRUBIN DIRECT (BEAKER) (test 0.2 mg/dL 0.1-0.5 Specimen slightly hemolyzed ibse=711) ALKALINE PHOSPHATASE (BEAKER) 100 U/L 40-150 (test ainl=202) AST (SGOT) (BEAKER) (test 24 U/L 5-34 Specimen slightly hemolyzed yohp=019) ALT (SGPT) (BEAKER) (test 21 U/L 6-55 Specimen slightly hemolyzed wvtg=999) CBC W/PLT COUNT & AUTO [id number] 04:14:00 Test Item Value Reference Range Comments WHITE BLOOD CELL COUNT (BEAKER) (test eupg=315) 10.8 K/ L 3.5-10.5 RED BLOOD CELL COUNT (BEAKER) (test qjgy=260) 4.31 M/ L 4.63-6.08 HEMOGLOBIN (BEAKER) (test zhsc=641) 12.6 GM/DL 13.7-17.5 HEMATOCRIT (BEAKER) (test wjxh=854) 39.5 % 40.1-51.0 MEAN CORPUSCULAR VOLUME (BEAKER) (test pjzh=807) 91.6 fL 79.0-92.2 MEAN CORPUSCULAR HEMOGLOBIN (BEAKER) (test 29.2 pg 25.7-32.2 gtet=255) MEAN CORPUSCULAR HEMOGLOBIN CONC (BEAKER) (test 31.9 GM/DL 32.3-36.5 hwqn=884) RED CELL DISTRIBUTION WIDTH (BEAKER) (test 14.0 % 11.6-14.4 kuqz=839) PLATELET COUNT (BEAKER) (test gbuo=087) 284 K/CU MM 150-450 MEAN PLATELET VOLUME (BEAKER) (test wveo=378) 10.1 fL 9.4-12.4 NUCLEATED RED BLOOD CELLS (BEAKER) (test 0 /100 WBC 0-0 hrna=583) NEUTROPHILS RELATIVE PERCENT (BEAKER) (test 75 % mlzb=135) LYMPHOCYTES RELATIVE PERCENT (BEAKER) (test 14 % lgcw=289) MONOCYTES RELATIVE PERCENT (BEAKER) (test 9 % ofkl=514) EOSINOPHILS RELATIVE PERCENT (BEAKER) (test 2 % agzt=326) BASOPHILS RELATIVE PERCENT (BEAKER) (test 0 % szuc=687) NEUTROPHILS ABSOLUTE COUNT (BEAKER) (test 8.02 K/ L 1.78-5.38 atto=503) LYMPHOCYTES ABSOLUTE COUNT (BEAKER) (test 1.50 K/ L 1.32-3.57 raue=202) MONOCYTES ABSOLUTE COUNT (BEAKER) (test 1.00 K/ L 0.30-0.82 rese=099) EOSINOPHILS ABSOLUTE COUNT (BEAKER) (test 0.16 K/ L 0.04-0.54 jkti=875) BASOPHILS ABSOLUTE COUNT (BEAKER) (test 0.02 K/ L 0.01-0.08 eusm=051) IMMATURE GRANULOCYTES-RELATIVE PERCENT (BEAKER) 1 % 0-1 (test lsey=2722) POCT-GLUCOSE [id number] 22:35:00 Test Item Value Reference Range Comments POC-GLUCOSE METER (BEAKER) 165 mg/dL 70-110 TESTED AT [facility] [address] [facility] (test nswb=2887) [place] [address] U/S, DRAINAGE, W/ CATH [id number] 17:58:00Reason for exam:->liver abscessFINAL REPORT INDICATION:58-year-old male with abdominal pain, fevers, and suspected liver abscess. Request for immature to percutaneous drainage catheter placement. COMPARISON:Outside facility CT May 30, 2018. TECHNIQUE:Ultrasound-guided placement of 10 Tajik drainage catheter in right hepatic lobe 4 [...] removed. Tract was dilated with a 6 Tajik, 8 Tajik, and then a 10 Tajik dilator. Then a 10 Tajik multisidehole drainage catheter was placed over the guidewire into the collection. Catheter was pigtailed and ultrasound confirmed tip of the catheter within the targeted collection. Catheter was sutured to the skin and connected to bulb suction. Patient tolerated procedure well and was transferred back to his hospital room. PROCEDURAL SEDATION:Procedural sedation was used with Versed 1.0 mg IV and Fentanyl 50 mcg IV administered. The department of radiology nurse was present at the time of procedure. Monitored cardiorespiratory function during conscious sedation was performed under the radiologist's supervision. Total monitoring time was approximately 45 minutes. IMPRESSION: Ultrasound guided placement of 10 Tajik drainage catheter in right hepatic lobe abscess. Signed: Monica Gibson MDReport Verified Date/Time: 05/31/2018 17:58:48 Reading Location: [place] [id number] Ultrasound Reading Room [id number] 13:02:00 Test Item Value Reference Range Comments PROTIME (BEAKER) (test crkv=911) 14.8 seconds 11.7-14.7 INR (BEAKER) (test tqcq=996) 1.1 <=5.9 PARTIAL THROMBOPLASTIN TIME (BEAKER) (test 36.1 seconds 22.5-36.0 eyhz=107) RECOMMENDED COUMADIN/WARFARIN INR THERAPY RANGESSTANDARD DOSE: 2.0 - 3.0 Includes: PROPHYLAXIS forvenous thrombosis, systemic embolization; TREATMENT for venous thrombosis and/or pulmonary embolus.HIGH RISK: Target INR is 2.5-3.5 for patients with mechanical heart valves.POCT-GLUCOSE [id number] 11:58:00 Test Item Value Reference Range Comments POC-GLUCOSE METER (BEAKER) 153 mg/dL 70-110 TESTED AT [address] (test llwe=1522) [place] [id number] POCT-GLUCOSE [id number] 08:16:00 Test Item Value Reference Range Comments POC-GLUCOSE METER (BEAKER) 148 mg/dL 70-110 TESTED AT [address] (test agwl=2686) [place] [id number] 05:32:00 Test Item Value Reference Range Comments PHOSPHORUS (BEAKER) (test ybwb=254) 2.3 mg/dL 2.3-4.7 [id number] 05:32:00 Test Item Value Reference Range Comments MAGNESIUM (BEAKER) (test rsvu=055) 1.7 mg/dL 1.6-2.6 BASIC METABOLIC [id number] 05:32:00 Test Item Value Reference Range Comments SODIUM (BEAKER) (test 139 meq/L 136-145 pxth=535) POTASSIUM (BEAKER) (test 3.8 meq/L 3.5-5.1 ezix=591) CHLORIDE (BEAKER) (test 100 meq/L 98-107 ywrd=401) CO2 (BEAKER) (test 27 meq/L 22-29 zhar=676) BLOOD UREA NITROGEN 11 mg/dL 7-21 (BEAKER) (test tzar=654) CREATININE (BEAKER) (test 0.79 mg/dL 0.57-1.25 perb=813) GLUCOSE RANDOM (BEAKER) 178 mg/dL 70-105 (test fmea=402) CALCIUM (BEAKER) (test 10.0 mg/dL 8.4-10.2 cynz=859) EGFR (BEAKER) (test 101 mL/min/1.73 sq m ESTIMATED GFR IS NOT oaep=9955) ACCURATE CREATININE CLEARANCE IN PREDICTING GLOMERULAR FILTRATION RATE. ESTIMATED GFR IS NOT APPLICABLE FOR DIALYSIS PATIENTS. HEPATIC FUNCTION [id number] 05:32:00 Test Item Value Reference Range Comments TOTAL PROTEIN (BEAKER) (test tcfd=525) 8.2 gm/dL 6.0-8.3 ALBUMIN (BEAKER) (test pepr=5798) 3.9 g/dL 3.5-5.0 BILIRUBIN TOTAL (BEAKER) (test uwhv=589) 0.7 mg/dL 0.2-1.2 BILIRUBIN DIRECT (BEAKER) (test tnqs=613) 0.4 mg/dL 0.1-0.5 ALKALINE PHOSPHATASE (BEAKER) (test rvye=273) 98 U/L 40-150 AST (SGOT) (BEAKER) (test mpmq=706) 18 U/L 5-34 ALT (SGPT) (BEAKER) (test phss=893) 20 U/L 6-55 LACTIC ACID, [id number] 05:11:00 Test Item Value Reference Range Comments LACTATE BLOOD VENOUS (2) (BEAKER) (test 0.8 mmol/L 0.5-2.2 olmd=2290) CBC W/PLT COUNT & AUTO [id number] 05:00:00 Test Item Value Reference Range Comments WHITE BLOOD CELL COUNT (BEAKER) (test kdlj=111) 12.0 K/ L 3.5-10.5 RED BLOOD CELL COUNT (BEAKER) (test lwrk=678) 4.62 M/ L 4.63-6.08 HEMOGLOBIN (BEAKER) (test nlzh=111) 13.5 GM/DL 13.7-17.5 HEMATOCRIT (BEAKER) (test zjhe=469) 41.7 % 40.1-51.0 MEAN CORPUSCULAR VOLUME (BEAKER) (test ofdt=394) 90.3 fL 79.0-92.2 MEAN CORPUSCULAR HEMOGLOBIN (BEAKER) (test 29.2 pg 25.7-32.2 pqsu=277) MEAN CORPUSCULAR HEMOGLOBIN CONC (BEAKER) (test 32.4 GM/DL 32.3-36.5 qaqi=444) RED CELL DISTRIBUTION WIDTH (BEAKER) (test 14.1 % 11.6-14.4 qlmu=626) PLATELET COUNT (BEAKER) (test hldv=429) 217 K/CU MM 150-450 MEAN PLATELET VOLUME (BEAKER) (test lkuu=885) 10.3 fL 9.4-12.4 NUCLEATED RED BLOOD CELLS (BEAKER) (test 0 /100 WBC 0-0 tmwg=099) NEUTROPHILS RELATIVE PERCENT (BEAKER) (test 76 % xbof=440) LYMPHOCYTES RELATIVE PERCENT (BEAKER) (test 13 % lovo=581) MONOCYTES RELATIVE PERCENT (BEAKER) (test 10 % cukp=681) EOSINOPHILS RELATIVE PERCENT (BEAKER) (test 1 % ackg=600) BASOPHILS RELATIVE PERCENT (BEAKER) (test 0 % vste=843) NEUTROPHILS ABSOLUTE COUNT (BEAKER) (test 9.06 K/ L 1.78-5.38 romn=311) LYMPHOCYTES ABSOLUTE COUNT (BEAKER) (test 1.57 K/ L 1.32-3.57 fhst=316) MONOCYTES ABSOLUTE COUNT (BEAKER) (test 1.16 K/ L 0.30-0.82 ysha=168) EOSINOPHILS ABSOLUTE COUNT (BEAKER) (test 0.09 K/ L 0.04-0.54 afdv=896) BASOPHILS ABSOLUTE COUNT (BEAKER) (test 0.02 K/ L 0.01-0.08 zwsz=611) IMMATURE GRANULOCYTES-RELATIVE PERCENT (BEAKER) 1 % 0-1 (test oobt=5229) CBC W/PLT COUNT & AUTO [id number] 01:52:00 Test Item Value Reference Range Comments WHITE BLOOD CELL COUNT (BEAKER) (test ckfd=445) 14.3 K/ L 3.5-10.5 RED BLOOD CELL COUNT (BEAKER) (test kepb=435) 4.50 M/ L 4.63-6.08 HEMOGLOBIN (BEAKER) (test pmvx=492) 13.0 GM/DL 13.7-17.5 HEMATOCRIT (BEAKER) (test wjpq=430) 41.3 % 40.1-51.0 MEAN CORPUSCULAR VOLUME (BEAKER) (test bqun=660) 91.8 fL 79.0-92.2 MEAN CORPUSCULAR HEMOGLOBIN (BEAKER) (test 28.9 pg 25.7-32.2 qrdz=891) MEAN CORPUSCULAR HEMOGLOBIN CONC (BEAKER) (test 31.5 GM/DL 32.3-36.5 kbzy=014) RED CELL DISTRIBUTION WIDTH (BEAKER) (test 14.0 % 11.6-14.4 epvg=866) PLATELET COUNT (BEAKER) (test iqxf=161) 216 K/CU MM 150-450 MEAN PLATELET VOLUME (BEAKER) (test yvrb=293) 10.2 fL 9.4-12.4 NUCLEATED RED BLOOD CELLS (BEAKER) (test 0 /100 WBC 0-0 ojth=352) NEUTROPHILS RELATIVE PERCENT (BEAKER) (test 74 % epzg=568) LYMPHOCYTES RELATIVE PERCENT (BEAKER) (test 13 % uwns=462) MONOCYTES RELATIVE PERCENT (BEAKER) (test 11 % deda=335) EOSINOPHILS RELATIVE PERCENT (BEAKER) (test 0 % cvdi=182) BASOPHILS RELATIVE PERCENT (BEAKER) (test 0 % sfny=724) NEUTROPHILS ABSOLUTE COUNT (BEAKER) (test 10.63 K/ L 1.78-5.38 kvkz=713) LYMPHOCYTES ABSOLUTE COUNT (BEAKER) (test 1.84 K/ L 1.32-3.57 doyl=598) MONOCYTES ABSOLUTE COUNT (BEAKER) (test 1.62 K/ L 0.30-0.82 amwq=240) EOSINOPHILS ABSOLUTE COUNT (BEAKER) (test 0.05 K/ L 0.04-0.54 thbj=134) BASOPHILS ABSOLUTE COUNT (BEAKER) (test 0.02 K/ L 0.01-0.08 fagp=205) IMMATURE GRANULOCYTES-RELATIVE PERCENT (BEAKER) 1 % 0-1 (test cqbh=6206) BASIC METABOLIC [id number] 01:28:00 Test Item Value Reference Range Comments SODIUM (BEAKER) (test 137 meq/L 136-145 uyfi=498) POTASSIUM (BEAKER) (test 3.6 meq/L 3.5-5.1 cpga=944) CHLORIDE (BEAKER) (test 99 meq/L 98-107 wahj=131) CO2 (BEAKER) (test 27 meq/L 22-29 zbmr=860) BLOOD UREA NITROGEN 12 mg/dL 7-21 (BEAKER) (test rahv=346) CREATININE (BEAKER) (test 0.81 mg/dL 0.57-1.25 ovmr=152) GLUCOSE RANDOM (BEAKER) 137 mg/dL 70-105 (test onbi=133) CALCIUM (BEAKER) (test 9.3 mg/dL 8.4-10.2 pzfg=158) EGFR (BEAKER) (test 99 mL/min/1.73 sq m ESTIMATED GFR IS NOT olrm=7340) ACCURATE CREATININE CLEARANCE IN PREDICTING GLOMERULAR FILTRATION RATE. ESTIMATED GFR IS NOT APPLICABLE FOR DIALYSIS PATIENTS. HEPATIC FUNCTION [id number] 01:28:00 Test Item Value Reference Range Comments TOTAL PROTEIN (BEAKER) (test picy=760) 7.9 gm/dL 6.0-8.3 ALBUMIN (BEAKER) (test jgmx=4111) 3.8 g/dL 3.5-5.0 BILIRUBIN TOTAL (BEAKER) (test vbbv=783) 0.9 mg/dL 0.2-1.2 BILIRUBIN DIRECT (BEAKER) (test tnck=514) 0.4 mg/dL 0.1-0.5 ALKALINE PHOSPHATASE (BEAKER) (test kmta=182) 94 U/L 40-150 AST (SGOT) (BEAKER) (test lrhg=236) 14 U/L 5-34 ALT (SGPT) (BEAKER) (test bfhc=246) 18 U/L 6-55 LACTIC ACID, [id number] 01:17:00 Test Item Value Reference Range Comments LACTATE BLOOD VENOUS (2) (BEAKER) (test 1.1 mmol/L 0.5-2.2 cfpl=2502) POCT-GLUCOSE [id number] 22:23:00 Test Item Value Reference Range Comments POC-GLUCOSE METER (BEAKER) 142 mg/dL 70-110 TESTED AT [facility] [id number] [facility] (test ksaj=7739) [facility] [id number] 22:02:00 Test Item Value Reference Range Comments PROCALCITONIN (BEAKER) (test yjfb=2307) 2.54 ng/mL <0.05 SEPSIS RISK (ng/mL)Low: 0.05-0.50Intermediate: 0.51-2.00High: & gt;=2.01LACTIC ACID, [id number] 21:28:00 Test Item Value Reference Range Comments LACTATE BLOOD VENOUS (2) 1.0 mmol/L 0.5-2.2 Specimen moderately hemolyzed (BEAKER) (test nibq=8611)
[2018-09-10 18:48] LABS: Arterial Blood Carboxyhemoglob 0.7 % (0-1.5); Blood Gas Oxyhemoglobin 93.7 % (94-97); Blood O2 Saturation 95.4 % (92-98.5)
--- NOTE | 2018-09-10 18:50 | ER ---
Nurse's Notes [facility] Name: Salas Srivastava Age: 58 yrs Sex: Male : 1960 Arrival Date: 09/10/2018 Time: 18:21 Bed 3 Private MD: Diagnosis: Chronic obstructive pulmonary disease with (acute) exacerbation;Hypoxemia;Type 2 diabetes mellitus;Acute respiratory failure with hypercapnia Presentation: 09/10 18:21 Presenting complaint: EMS states: Called for c/o breathing difficulty, pt found in ph tripod position w/ labored respirations, Spo2 80-81% on home oxygen at 3L, improved to 97% on NRB, pt had teeth pulled at dentist approx 3 hours ago, dried blood noted to mouth. Transition of care: patient was not received from another setting of care. Onset of symptoms was September 10, 2018. Risk Assessment: Do you want to hurt yourself or someone else? Patient reports no desire to harm self or others. Initial Sepsis Screen: Does the patient meet any 2 criteria? No. Patient's initial sepsis screen is negative. Does the patient have a suspected source of infection? No. Patient's initial sepsis screen is negative. Care prior to arrival: None. 18:21 Method Of Arrival: EMS: [facility] ph 18:21 Acuity: ESVIN 2 ph Historical: - Allergies: 18:25 PENICILLINS; ph - Home Meds: 18:25 acetazolamide 125 mg Oral tab [Active]; Albuterol Inhl [Active]; amlodipine 10 mg tab 1 ph tab once daily [Active]; glimepiride 2 mg Oral tab [Active]; lisinopril 5 mg Oral tab 1 tab once daily for Hypertension [Active]; metformin 1,000 mg Oral tab 1 tab 2 times per day [Active]; pantoprazole 40 mg Oral TbEC 1 tab once daily [Active]; prednisone 20 mg Oral tab [Active]; - PMHx: 18:25 COPD; Diabetes - NIDDM; Hypertension; Sleep Apnea; ph - Immunization history:: Adult Immunizations unknown. - Social history:: Smoking status: Patient/guardian denies using tobacco, the patient reports quitting approximately 3 years ago. - Ebola Screening: : No symptoms or risks identified at this time. Screenin:26 Abuse screen: Denies threats or abuse. Denies injuries from another. Nutritional ph screening: No deficits noted. Tuberculosis screening: No symptoms or risk factors identified. Fall Risk None identified. Assessment: 18:21 General: Appears distressed, uncomfortable, Behavior is calm, cooperative, Reports ss feeling ill for 0-12 hours, Denies fever. Pain: Denies pain. Neuro: Level of Consciousness is awake, alert, obeys commands, Oriented to person, place, time, situation, [employer]anner are equal bilaterally Speech is normal, Facial symmetry appears normal, Pupils are PERRLA. Cardiovascular: Chest pain is denied. Respiratory: Airway is patent Respiratory effort is even, shallow, use of abdominal accessory muscles noted. GI: Patient currently denies abdominal pain, diarrhea, nausea, vomiting. EENT: dry blood noted to lips. Pt reports he had teeth extracted approximately 3 hours ago and felt fine during procedure. Pt states, "I've been dealing with cold symptoms for almost a month now.". Derm: Skin is diaphoretic, Skin is pale, Skin temperature is cool. Musculoskeletal: Circulation, motion, and sensation intact. Range of motion: intact in all extremities, Swelling absent. 18:53 Reassessment: BIPAP placed on patient now. ss 19:15 General: Appears comfortable, Behavior is calm, cooperative. Pain: Denies pain. Neuro: ea Level of Consciousness is awake, alert, obeys commands, Oriented to person, place, time, situation. Cardiovascular: Patient's skin is warm and dry. Respiratory: Airway is patent Respiratory effort is even, Pt currently on BiPAP. Respiratory: Breath sounds are diminished bilaterally. GI: Abdomen is round. Derm: Skin is pink, warm \\T\\ dry. Musculoskeletal: Circulation, motion, and sensation intact. 20:16 Reassessment: Patient and/or family updated on plan of care and expected duration. Pain ea level reassessed. Patient is alert, oriented x 3, equal unlabored respirations, skin warm/dry/pink. Pt remains on BiPAP, reports he is feeling better. Resting with eyes closed, respirations even and unlabored. Chest expansions even and symmetrical. Pt denies pain at this time. 20:40 Reassessment: Report called to receiving nurse on second floor. ea 21:40 Reassessment: Patient and/or family updated on plan of care and expected duration. Pain tr5 level reassessed. Patient is alert, oriented x 3, equal unlabored respirations, skin warm/dry/pink. Pt admitted to second floor, pt taken via stretcher per ED staff, respiratory at bedside pt tolerating well. Vital Signs: 18:24 BP 150 / 57; Pulse 57; Resp 18; Temp 97.0; Pulse Ox 99% on 100% Non-rebreather mask; ph Weight 113.4 kg; 19:30 BP 107 / 87; Pulse 67; Resp 16; Pulse Ox 100% on R/A; ea 20:18 BP 109 / 79; Pulse 65; Resp 16; Pulse Ox 100% on BiPAP; ea 21:30 BP 110 / 72; Pulse 60; Resp 18; Pulse Ox 100% ; tr5 ED Course: 18:21 Patient arrived in ED. ph 18:22 Noé Love MD is Attending Physician. juan 18:24 Triage completed. ph 18:26 Sonia De La O, MIGUELITO is Primary Nurse. ss 18:26 Arm band placed on Patient placed in an exam room, on a stretcher, on oxygen, on ph lunchroom monitor, on pulse oximetry. 18:26 Patient has correct armband on for positive identification. Placed in gown. Bed in low ph position. Call light in reach. Side rails up X2. nurse monitoring on. Pulse ox on. NIBP on. Door closed. Noise minimized. Warm blanket given. 18:26 Inserted saline lock: 18 gauge in right EJ, using aseptic technique. ,using aseptic ss technique. insertion by Dr. Love Blood collected. 18:38 EKG done, by ED staff, reviewed by Noé Love MD. em1 18:47 Ben Richard DO is Hospitalizing Provider. [facility] 19:08 No provider procedures requiring assistance completed. Patient admitted, IV remains in ss place. 19:20 XRAY Chest (1 view) In Process Unspecified. EDMS Administered Medications: 18:49 Drug: Xopenex 3.75 mg Route: Inhalation; ss 18:49 Drug: AtroVENT Aerosol 0.5 mg Route: Inhalation; ss 18:50 Drug: SOLU-Medrol 125 mg Route: IVP; Site: right jugular; ss 19:00 Follow up: Response: No adverse reaction ea 18:55 Drug: levofloxacin 500 mg Volume: 100 ml; Route: IVPB; Infused Over: 60 mins; Site: ss right jugular; 20:19 Follow up: Response: No adverse reaction; IV Status: Completed infusion; IV Intake: ea 100ml Intake: 20:19 IV: 100ml; Total: 100ml. ea Outcome: 18:48 Decision to Hospitalize by Provider. juan 19:08 Instructed on the need for admit. 21:10 Admitted to Med/surg accompanied by tech, room 209, with oxygen, with chart, Report ea called to Receiving nurse on second floor 21:10 Condition: stable 21:40 Patient left the ED. ea Signatures: Dispatcher [employer] EDPR Noé Love MD MD cha Martinez, Eric em1 Sonia De La O, MIGUELITO RN Shalonda Cole RN RN Anabel Leon RN RN ea Rodriguez, Tommie RN RN tr5
--- NOTE | 2018-09-10 18:50 | EDPHYS ---
Physician Documentation [facility] Name: Salas Srivastava Age: 58 yrs Sex: Male : 1960 Arrival Date: 09/10/2018 Time: 18:21 Bed 3 Private MD: ED Physician Noé Love HPI: 09/10 18:33 This 58 yrs old Male presents to ER via EMS with complaints of copd after juan dental extraction. 18:33 The patient has shortness of breath at rest, with light activity. Onset: The juan symptoms/episode began/occurred 3 week(s) ago. Duration: The symptoms are continuous, and are steadily getting worse. The patient's shortness of breath is aggravated by nothing, is alleviated by nothing. Onset: The symptoms/episode began/occurred 14 day(s) ago. Associated signs and symptoms: Pertinent positives: non-productive cough. Severity of symptoms: At their worst the symptoms were moderate in the emergency department the symptoms are unchanged. Historical: - Allergies: 18:25 PENICILLINS; ph - Home Meds: 18:25 acetazolamide 125 mg Oral tab [Active]; Albuterol Inhl [Active]; amlodipine 10 mg tab 1 ph tab once daily [Active]; glimepiride 2 mg Oral tab [Active]; lisinopril 5 mg Oral tab 1 tab once daily for Hypertension [Active]; metformin 1,000 mg Oral tab 1 tab 2 times per day [Active]; pantoprazole 40 mg Oral TbEC 1 tab once daily [Active]; prednisone 20 mg Oral tab [Active]; - PMHx: 18:25 COPD; Diabetes - NIDDM; Hypertension; Sleep Apnea; ph - Immunization history:: Adult Immunizations unknown. - Social history:: Smoking status: Patient/guardian denies using tobacco, the patient reports quitting approximately 3 years ago. - Ebola Screening: : No symptoms or risks identified at this time. ROS: 18:34 Constitutional: Negative for fever, chills, and weight loss, Eyes: Negative for injury, juan pain, redness, and discharge, ENT: Negative for injury, pain, and discharge, Neck: Negative for injury, pain, and swelling, Cardiovascular: Negative for chest pain, palpitations, and edema, Abdomen/GI: Negative for abdominal pain, nausea, vomiting, diarrhea, and constipation, Back: Negative for injury and pain, : Negative for injury, bleeding, discharge, and swelling, MS/Extremity: Negative for injury and deformity, Skin: Negative for injury, rash, and discoloration, Neuro: Negative for headache, weakness, numbness, tingling, and seizure, Psych: Negative for depression, anxiety, suicide ideation, homicidal ideation, and hallucinations, Allergy/Immunology: Negative for hives, rash, and allergies, Endocrine: Negative for neck swelling, polydipsia, polyuria, polyphagia, and marked weight changes, Hematologic/Lymphatic: Negative for swollen nodes, abnormal bleeding, and unusual bruising. 18:34 Respiratory: Positive for cough, dyspnea on exertion, shortness of breath, wheezing, expiratory. Exam: 18:34 Constitutional: This is a well developed, well nourished patient who is awake, alert, juan and in no acute distress. Head/Face: Normocephalic, atraumatic. Eyes: Pupils equal round and reactive to light, extra-ocular motions intact. Lids and lashes normal. Conjunctiva and sclera are non-icteric and not injected. Cornea within normal limits. Periorbital areas with no swelling, redness, or edema. ENT: Nares patent. No nasal discharge, no septal abnormalities noted. Tympanic membranes are normal and external auditory canals are clear. Oropharynx with no redness, swelling, or masses, exudates, or evidence of obstruction, uvula midline. Mucous membranes moist. Neck: Trachea midline, no thyromegaly or masses palpated, and no cervical lymphadenopathy. Supple, full range of motion without nuchal rigidity, or vertebral point tenderness. No Meningismus. Chest/axilla: Normal chest wall appearance and motion. Nontender with no deformity. No lesions are appreciated. Cardiovascular: Regular rate and rhythm with a normal S1 and S2. No gallops, murmurs, or rubs. Normal PMI, no JVD. No pulse deficits. Abdomen/GI: Soft, non-tender, with normal bowel sounds. No distension or tympany. No guarding or rebound. No evidence of tenderness throughout. Back: No spinal tenderness. No costovertebral tenderness. Full range of motion. Male : Normal genitalia with no discharge or lesions. Skin: Warm, dry with normal turgor. Normal color with no rashes, no lesions, and no evidence of cellulitis. MS/ Extremity: Pulses equal, no cyanosis. Neurovascular intact. Full, normal range of motion. Neuro: Awake and alert, GCS 15, oriented to person, place, time, and situation. Cranial nerves II-XII grossly intact. Motor strength 5/5 in all extremities. Sensory grossly intact. Cerebellar exam normal. Normal gait. Psych: Awake, alert, with orientation to person, place and time. Behavior, mood, and affect are within normal limits. 18:34 Respiratory: moderate respiratory distress is noted, Respirations: labored breathing, that is moderate, Breath sounds: decreased breath sounds, rhonchi, wheezing: expiratory Vital Signs: 18:24 BP 150 / 57; Pulse 57; Resp 18; Temp 97.0; Pulse Ox 99% on 100% Non-rebreather mask; ph Weight 113.4 kg; 19:30 BP 107 / 87; Pulse 67; Resp 16; Pulse Ox 100% on R/A; ea 20:18 BP 109 / 79; Pulse 65; Resp 16; Pulse Ox 100% on BiPAP; ea 21:30 BP 110 / 72; Pulse 60; Resp 18; Pulse Ox 100% ; tr5 MDM: 18:22 Patient medically screened. [facility] 18:35 Data reviewed: vital signs, nurses notes, lab test result(s), EKG, radiologic studies, juan plain films. 09/10 18:33 Order name: Basic Metabolic Panel; Complete Time: 20:08 [facility] 09/10 18:33 Order name: CBC with Diff; Complete Time: 20:08 [facility] 09/10 18:33 Order name: LFT's; Complete Time: 20:08 [facility] 09/10 18:33 Order name: Magnesium; Complete Time: 20:08 [facility] 09/10 18:33 Order name: NT PRO-BNP; Complete Time: 20:08 [facility] 09/10 18:33 Order name: PT-INR; Complete Time: 20:08 [facility] 09/10 18:33 Order name: Troponin (emerg Dept Use Only); Complete Time: 20:08 [facility] 09/10 18:33 Order name: XRAY Chest (1 view); Complete Time: 20:08 [facility] 09/10 18:33 Order name: ABG; Complete Time: 20:08 [facility] 09/10 18:33 Order name: Blood Culture Adult (2) [facility] 09/10 18:33 Order name: Procalcitonin; Complete Time: 20:08 [facility] 09/10 18:33 Order name: Lactate; Complete Time: 20:08 [facility] 09/10 18:33 Order name: Flu; Complete Time: 20:08 [facility] 09/10 18:33 Order name: BIPAP 09/10 18:33 Order name: EKG; Complete Time: 18:36 [facility] 09/10 18:33 Order name: Cardiac monitoring; Complete Time: 18:53 [facility] 09/10 18:33 Order name: EKG - Nurse/Tech; Complete Time: 18:38 [facility] 09/10 18:33 Order name: IV Saline Lock; Complete Time: 18:53 [facility] 09/10 18:33 Order name: Labs collected and sent; Complete Time: 18:53 [facility] 09/10 18:33 Order name: O2 Per Protocol; Complete Time: 18:52 [facility] 09/10 18:33 Order name: O2 Sat Monitoring; Complete Time: 18:52 [facility] Administered Medications: 18:49 Drug: Xopenex 3.75 mg Route: Inhalation; ss 18:49 Drug: AtroVENT Aerosol 0.5 mg Route: Inhalation; ss 18:50 Drug: SOLU-Medrol 125 mg Route: IVP; Site: right jugular; ss 19:00 Follow up: Response: No adverse reaction ea 18:55 Drug: levofloxacin 500 mg Volume: 100 ml; Route: IVPB; Infused Over: 60 mins; Site: ss right jugular; 20:19 Follow up: Response: No adverse reaction; IV Status: Completed infusion; IV Intake: ea 100ml Disposition: 09/10/18 18:48 Hospitalization ordered by Ben Richard for Inpatient Admission. Preliminary diagnosis are Chronic obstructive pulmonary disease with (acute) exacerbation, Hypoxemia, Type 2 diabetes mellitus, Acute respiratory failure with hypercapnia. - Bed requested for Telemetry/MedSurg (Inpatient). - Status is Inpatient Admission. ea - Condition is Fair. - Problem is new. - Symptoms have improved. UTI on Admission? No Signatures: Dispatcher [employer] EDMS Kenia Chowdary RN RN mw Anderson, Corey, MD MD cha Smirch, Shelby, RN RN ss Hall, Patricia, RN RN ph Antunez, Elena, RN RN ea Corrections: (The following items were deleted from the chart) 19:02 18:48 Hospitalization Ordered by Ben Richard DO for Inpatient Admission. Preliminary juan diagnosis is Chronic obstructive pulmonary disease with (acute) exacerbation; Hypoxemia; Type 2 diabetes mellitus. Bed requested for Telemetry/MedSurg (Inpatient). Status is Inpatient Admission. Condition is Fair. Problem is new. Symptoms have improved. UTI on Admission? No. juan 19:43 19:02 09/10/2018 18:48 Hospitalization Ordered by Ben Richard DO for Inpatient mw Admission. Preliminary diagnosis is Chronic obstructive pulmonary disease with (acute) exacerbation; Hypoxemia; Type 2 diabetes mellitus; Acute respiratory failure with hypercapnia. Bed requested for Telemetry/MedSurg (Inpatient). Status is Inpatient Admission. Condition is Fair. Problem is new. Symptoms have improved. UTI on Admission? No. juan 21:40 19:43 09/10/2018 18:48 Hospitalization Ordered by Ben Richard DO for Inpatient ea Admission. Preliminary diagnosis is Chronic obstructive pulmonary disease with (acute) exacerbation; Hypoxemia; Type 2 diabetes mellitus; Acute respiratory failure with hypercapnia. Bed requested for Telemetry/MedSurg (Inpatient). Status is Inpatient Admission. Condition is Fair. Problem is new. Symptoms have improved. UTI on Admission? No. mw
[2018-09-10] MEDS ORDERED: Levofloxacin500mg IV 500 MG/100 ML BAG IV ONE (18:52)
[2018-09-10] MEDS ORDERED: IPRATROPIUM BROM 0.5MG/2.5ML ONE (18:52)
[2018-09-10] MEDS ORDERED: METHYLPREDNISOLONE 125 MG INJ ONE (18:52)
[2018-09-10] MEDS ORDERED: LEVALBUTEROL 1.25 MG/3 ML NEB ONE (18:52)
[2018-09-10 18:57] LABS: Absolute Lymphocytes (CBC) 2.2 K/uL (0.7-4.9); Basophils % 0.5 % (0-1.3); Hematocrit 47.4 % (39.6-49.0); MPV 8.7 fL (7.6-11.3); RBC Red Blood Cell Count 5.39 M/uL (4.33-5.43)
[2018-09-10 19:12] LABS: Protime INR 1.04
[2018-09-10 19:18] LABS: ALT/SGPT 41 U/L (12-78); AST/SGOT 22 U/L (15-37); Albumin 4.2 g/dL (3.4-5.0); Alkaline Phosphatase 104 U/L (45-117); BUN Blood Urea Nitrogen 15 mg/dL (7-18); Bicarbonate 35 mmol/L (21-32); Bilirubin Direct 0.2 mg/dL (0-0.2); Bilirubin Total 0.6 mg/dL (0.2-1.0); Glucose Level 166 mg/dL (74-106); Magnesium 1.8 mg/dL (1.8-2.4); NT PRO-BNP 83 pg/mL (<125); Potassium 4.1 mmol/L (3.5-5.1); Protein, Total 8.1 g/dL (6.4-8.2); Sodium Level 142 mmol/L (136-145); Troponin (Emerg Dept Use Only) < 0.02 ng/mL (0.0-0.045)
--- NOTE | 2018-09-10 19:25 | RAD REPORT ---
EXAM DESCRIPTION: RAD - Chest Single View - 09/10/2018 7:18 pm CLINICAL HISTORY: Cough;COPD Chest pain. COMPARISON: Chest Single View dated 05/30/2018; Chest Single View dated 04/14/2018; Chest Single View dated 04/03/2018; Chest Pa And Lat (2 Views) dated 03/17/2018 FINDINGS: Portable technique limits examination quality. Calcified granuloma is present in the left lung base. The lungs are clear of acute infiltrate. The he art is upper limit of normal in size. No displaced fractures.
--- NOTE | 2018-09-10 19:56 | P.HP ---
Certification for Inpatient Patient admitted to: Inpatient With expected LOS: >2 Midnights Patient will require the following post-hospital care: Home Health Services Practitioner: I am a practitioner with admitting privileges, knowledge of patient current condition, hospital course, and medical plan of care. Services: Services provided to patient in accordance with Admission requirements found in Title 42 Section 412.3 of the Code of Federal Regulations Patient History Date of Service: 09/10/18 Primary Care Provider: Jose Lloyd NP; Pulmonary-Dr. Carranza Reason for admission: Shortness of breath History of Present Illness: 58-year-old male presented with shortness of breath. Patient with history of COPD oxygen dependent, hypertension, diabetes. Patient reported increasing shortness of breath over the past 7-10 days. He reported increasing cough and congestion. He denied any fever, chills. He came to the ER for further evaluation. In the ER he was very tachypneic and hypoxic. Patient required BiPAP in the emergency room. White count 8.3, hemoglobin 16. Platelet count of 215. Sodium within normal range. Potassium 4.1, renal function within normal range. Blood glucose 166. Troponin unremarkable. Pro calcitonin unremarkable. Chest x-ray did not show any signs of infection. Patient was stabilized in the emergency room. Patient admitted for further evaluate and treatment. When I saw the patient the ER, he appeared comfortable on BiPAP. He reports recent hospitalization several months ago for liver abscess related to tooth infection. That is being followed by infectious disease in [place]. Allergies Penicillins Adverse Reaction (Severe, Verified 04/14/18 21:15) Anaphylaxis Home medications list reviewed: Yes Home Medications: Amlodipine [Norvasc*] 10 mg PO DAILY 04/03/18 Lisinopril 5 mg PO DAILY 04/03/18 Metformin HCl 1,000 mg PO BID 04/03/18 Pantoprazole [Protonix Tab*] 40 mg PO Q48H 04/03/18 Methylprednisolone [Medrol dosepack] 4 mg PO DIRECTED #1 jodi 04/04/18 Albuterol Sulfate [Proair Hfa] 2 puff IH Q6H PRN 04/14/18 Umeclidinium Brm/Vilanterol Tr [Anoro Ellipta 62.5-25 Mcg INH] 1 puff IH DAILY 04/14/18 - Past Medical/Surgical History Diabetic: Yes -: COPD, Oxygen dependent -: DM-2 -: HTN -: Hyperlipidemia -: RACHEL, Compliant with CPAP -: Obesity -: Tobacco abuse, Quit recently. -: GI Bleed -: Bowel surgery due to infection 1967 -: Stomach Surgery Nov 2015 -: Colonoscopy 2015 Psychosocial/ Personal History: disabled, -33 years, 4 children - Family History Mother -: Heart disease, Hypertension, Diabetes - Social History Smoking Status: Former smoker Alcohol use: No CD- Drugs: No Caffeine use: Yes Place of Residence: Home Review of Systems General: As per HPI Eyes: Unremarkable ENT: Nose Congestion Respiratory: Cough, Shortness of Breath, SOB with Excertion, As per HPI Cardiovascular: Unremarkable Gastrointestinal: Unremarkable Genitourinary: Unremarkable Musculoskeletal: Unremarkable Integumentary: Unremarkable Neurological: Unremarkable Lymphatics: Unremarkable Physical Examination - Physical Exam General: Alert, Oriented x3, Cooperative, Mild distress (Currently on BiPAP) HEENT: Atraumatic, Normocephalic, PERRLA, Mucous membr. moist/pink Neck: Supple Respiratory: Expiratory wheezes (bilateral), Inspiratory wheezes (Bilateral) Cardiovascular: Normal pulses, Regular rate/rhythm Gastrointestinal: Normal bowel sounds, Soft and benign, Non-distended, No tenderness, No masses, No rebound, No guarding Musculoskeletal: No erythema, No tenderness, No warmth Integumentary: No tenderness/swelling, No erythema, No warmth, No cyanosis Neurological: Normal speech, Normal strength at 5/5 x4 extr, Normal tone, Normal affect - Studies Laboratory Data (last 24 hrs) 09/10/18 18:30: PT 12.3, INR 1.04 09/10/18 18:30: WBC 8.3, Hgb 16.0, Hct 47.4, Plt Count 215 09/10/18 18:30: Sodium 142, Potassium 4.1, BUN 15, Creatinine 0.80, Glucose 166 H, Magnesium 1.8, Total Bilirubin 0.6, AST 22, ALT 41, Alkaline Phosphatase 104 Microbiology Data (last 24 hrs): 09/10/18 18:46 Nasopharnyx Influenza Type A Antigen Screen - Final 09/10/18 18:46 Nasopharnyx Influenza Type B Antigen Screen - Final Assessment and Plan - Plan Impression: Shortness of breath secondary to acute on chronic respiratory failure related to COPD exacerbation, oxygen dependent Hypertension Diabetes mellitus type 2, [id number] GERD Former tobacco use Plan: Shortness of breath secondary to acute on chronic respiratory failure related to COPD exacerbation, oxygen dependent: Patient will be admitted for further evaluation and treatment. Patient currently on BiPAP. Will wean off BiPAP to nasal cannula. Will start with oral prednisone. Continue with COPD medication including Brovana/albuterol/Atrovent. Patient is oxygen dependent at home. Patient seen by pulmonology as an outpatient. Will consult pulmonology to further evaluate and address. Will start DVT prophylaxis-Lovenox. Anticipate discharge in the next 2-3 days with improvement. Hypertension: Restart home medication of lisinopril 40 mg daily and Norvasc 10 mg daily. Will monitor and adjust appropriately. Diabetes mellitus type 2, [id number]: Will start with insulin sliding scale. Blood sugar appears stable. GERD: Will need to obtain and restart home medication Former tobacco use: Patient has been tobacco free for the last 3 years. Discharge Plan: Home Plan to discharge in: 72 Hours - Advance Directives Does patient have a Living Will: No Does patient have a Durable POA for Healthcare: No - Code Status/Comfort Care Code Status Assessed: Yes (Patient is full code) Time Spent Managing Pts Care (In Minutes): 55
[2018-09-10] MEDS: INSULIN -REGULAR HUMAN 50 UNIT/0.5 ML ML SQ SCH (21:22)
[2018-09-10] MEDS ORDERED: ONDANSETRON 4 MG/2 ML VIAL IV PRN (21:22)
[2018-09-10] MEDS ORDERED: ACETAMINOPHEN 500 MG TAB PO PRN (21:22)
[2018-09-10] MEDS ORDERED: IPRATROPIUM BROM 0.5MG/2.5ML NEB PRN (21:22)
[2018-09-10] MEDS ORDERED: ALBUTEROL 2.5 MG/3 ML NEB SOL NEB PRN (21:22)
[2018-09-10 21:31] VITALS: BMI 32.6
[2018-09-10 22:25] LABS: CKMB Creatine Kinase MB 2.4 ng/mL (0.3-3.6); Troponin I 0.02 ng/mL (0.0-0.045)
[2018-09-10 22:42] LABS: Thyroid Stimulating Hormone 0.386 uIU/mL (0.360-3.740)
[2018-09-10] MEDS: ARFORMOTEROL TARTRATE 15 MCG/2 ML VIAL.NEB NEB SCH (22:45)
[2018-09-10] MEDS: predniSONE 20 MG TAB PO SCH (23:13)
[2018-09-11 00:39] LABS: Urine Appearance CLEAR; Urine Blood 3+ (NEG); Urine Color YELLOW; Urine Glucose 2+ (NEG); Urine Protein 1+ (NEG); Urine Specific Gravity >=1.030 (1.005-1.030); Urine Urobilinogen 0.2 mg/dL (0.2-1.0)
[2018-09-11 00:56] LABS: Urine Bilirubin NEGATIVE (NEG); Urine Microscopic Reflex ORDER UMIC
[2018-09-11 01:38] LABS: Urine Bacteria <20 /HPF (NONE SEEN); Urine Culture Reflex Order NOT NEEDED; Urine Mucus HEAVY /HPF (NONE SEEN)
[2018-09-11 06:19] LABS: Basophils % 0.1 % (0-1.3); Hematocrit 45.2 % (39.6-49.0); Lymphocytes % 16.7 % (15.3-44.8); MPV 8.8 fL (7.6-11.3); RBC Red Blood Cell Count 5.19 M/uL (4.33-5.43)
[2018-09-11] MEDS ORDERED: PANTOPRAZOLE 40MG TABLET PO SCH (06:30)
[2018-09-11 06:43] VITALS: O2SAT 95
[2018-09-11 06:50] LABS: CKMB Creatine Kinase MB 2.1 ng/mL (0.3-3.6); Troponin I 0.02 ng/mL (0.0-0.045)
[2018-09-11 07:02] LABS: Magnesium 1.7 mg/dL (1.8-2.4); Potassium 4.3 mmol/L (3.5-5.1)
[2018-09-11] MEDS: INSULIN -REGULAR HUMAN 50 UNIT/0.5 ML ML SQ SCH ×2 (07:30→12:39)
[2018-09-11] MEDS: ARFORMOTEROL TARTRATE 15 MCG/2 ML VIAL.NEB NEB SCH (08:00)
[2018-09-11] MEDS ORDERED: METFORMIN HCL 500 MG TAB PO SCH (08:00)
--- NOTE | 2018-09-11 08:16 | P.CNS ---
Date of Consult: 09/11/18 Primary Care Provider: Jose Lloyd NP; Pulmonary-Dr. Carranza Chief Complaint: Shortness of breath History of Present Illness: Patient is 58 years of age well known to me with a history of COPD admitted with worsening dyspnea and Les area 2 weeks prior to his admission he was apparently undergoing dental instruction denies any fever chills cough sputum or hemoptysis is doing much better been some concern about his blood pressure Allergies Penicillins Adverse Reaction (Severe, Verified 04/14/18 21:15) Anaphylaxis Home Medications: Amlodipine [Norvasc*] 10 mg PO DAILY 04/03/18 Lisinopril 40 mg PO DAILY 04/03/18 Metformin HCl 1,000 mg PO BID 04/03/18 Pantoprazole [Protonix Tab*] 40 mg PO DAILY 04/03/18 Albuterol Sulfate [Proair Hfa] 2 puff IH Q6H PRN 04/14/18 Umeclidinium Brm/Vilanterol Tr [Anoro Ellipta 62.5-25 Mcg INH] 1 puff IH DAILY 04/14/18 Aspirin [Aspirin EC 81 MG] 81 mg PO DAILY 09/10/18 Carvedilol [Coreg] 12.5 mg PO BID 09/10/18 Hydroxyzine HCl [Atarax] 25 mg PO Q8H PRN 09/10/18 - Past Medical/Surgical History Diabetic: Yes -: COPD, Oxygen dependent -: DM-2 -: HTN -: Hyperlipidemia -: RACHEL, Compliant with CPAP -: Obesity -: Tobacco abuse, Quit 3 years ago. -: GI Bleed -: Bowel surgery due to infection 1967 -: Stomach Surgery Nov 2015 -: Colonoscopy 2015 -: multiple oral surgeries Psychosocial/ Personal History: disabled, -31 years, 4 children - Family History Mother Medical History: Heart disease, Hypertension, Diabetes - Social History Smoking Status: Unknown if ever smoked Alcohol use: No CD- Drugs: No Caffeine use: Yes Place of Residence: Home Review of Systems 10-point ROS is otherwise unremarkable Physical Examination Temp Pulse Resp BP Pulse Ox 97.4 F 61 17 120/76 95 09/11/18 04:00 09/11/18 04:00 09/11/18 04:00 09/11/18 04:00 09/11/18 04:00 General: Alert, Oriented x3 Neck: Supple Respiratory: Clear to auscultation bilaterally, Diminished Cardiovascular: No edema, Regular rate/rhythm Laboratory Data (last 24 hrs) 09/10/18 18:30: PT 12.3, INR 1.04 09/10/18 18:30: WBC 8.3, Hgb 16.0, Hct 47.4, Plt Count 215 09/10/18 18:30: Sodium 142, Potassium 4.1, BUN 15, Creatinine 0.80, Glucose 166 H, Magnesium 1.8, Total Bilirubin 0.6, AST 22, ALT 41, Alkaline Phosphatase 104 - Problems (1) COPD exacerbation Onset Date: 06/10/15 Current Visit: No Status: Acute Plan: Patient is 58 years of age well known to me with a history of COPD is done well for quite some time does not smoke became worse recently been having some dental extractions done apparently is blood pressure is also been rather labile chest x-ray clear vital signs all reviewed labs unremarkable patient has a CPAP at home and is compliant with his medications can be discharged home on prednisone 10 mg twice a day for 7 days resume all his nebulizers and inhalers patient has chronic hypercapnia at baseline
[2018-09-11] MEDS ORDERED: LISINOPRIL 20 MG TAB PO SCH (09:00)
[2018-09-11] MEDS ORDERED: ASPIRIN EC 81 MG TAB PO SCH (09:00)
[2018-09-11] MEDS ORDERED: AMLODIPINE 10 MG TAB PO SCH (09:00)
[2018-09-11] MEDS ORDERED: ENOXAPARIN 40 MG/0.4 ML SQ SCH (09:00)
[2018-09-11] MEDS ORDERED: CARVEDILOL 12.5 MG TAB PO SCH (09:00)
[2018-09-11] MEDS: predniSONE 20 MG TAB PO SCH (09:19)
--- NOTE | 2018-09-11 10:40 | EKG ---
Test Date: 2018-09-10 Test Time: 18:34:49 Mri Special Procedures Technologist: SHAW MEASUREMENT RESULTS: Intervals: Rate: 85 AK: 162 QRSD: 158 QT: 430 QTc: 511 [place]: P: 74 AK: 162 QRS: -83 T: 58 INTERPRETIVE STATEMENTS: Normal sinus rhythm Right bundle branch block Left anterior fascicular block Bifascicular block Abnormal ECG Compared to ECG 05/30/2018 08:17:43 Left anterior fascicular block now present Bifascicular block now present Sinus tachycardia no longer present Electronically Signed On 09-11-18 10:38:18 CDT by Marco Antonio Armando
[2018-09-11 15:03] VITALS: TEMP 98
[2018-09-11 15:11] VITALS: BP 108/75
--- NOTE | 2018-09-11 15:33 | P.SSS ---
Patient History Date of Service: 09/11/18 Primary Care Provider: Jose Lloyd NP; Pulmonary-Dr. Carranza Reason for admission: Shortness of breath History of Present Illness: 58-year-old male presented with shortness of breath. Patient with history of COPD oxygen dependent, hypertension, diabetes. Patient reported increasing shortness of breath over the past 7-10 days. He reported increasing cough and congestion. He denied any fever, chills. He came to the ER for further evaluation. In the ER he was very tachypneic and hypoxic. Patient required BiPAP in the emergency room. White count 8.3, hemoglobin 16. Platelet count of 215. Sodium within normal range. Potassium 4.1, renal function within normal range. Blood glucose 166. Troponin unremarkable. Pro calcitonin unremarkable. Chest x-ray did not show any signs of infection. Patient was stabilized in the emergency room. Patient admitted for further evaluate and treatment. When I saw the patient the ER, he appeared comfortable on BiPAP. He reports recent hospitalization several months ago for liver abscess related to tooth infection. That is being followed by infectious disease in [place]. Allergies Penicillins Adverse Reaction (Severe, Verified 04/14/18 21:15) Anaphylaxis Home Medications: Amlodipine [Norvasc*] 10 mg PO DAILY 04/03/18 Lisinopril 40 mg PO DAILY 04/03/18 Metformin HCl 1,000 mg PO BID 04/03/18 Pantoprazole [Protonix Tab*] 40 mg PO DAILY 04/03/18 Albuterol Sulfate [Proair Hfa] 2 puff IH Q6H PRN 04/14/18 Umeclidinium Brm/Vilanterol Tr [Anoro Ellipta 62.5-25 Mcg INH] 1 puff IH DAILY 04/14/18 Aspirin [Aspirin EC 81 MG] 81 mg PO DAILY 09/10/18 Carvedilol [Coreg*] 12.5 mg PO BID 09/10/18 Hydroxyzine HCl [Atarax] 25 mg PO Q8H PRN 09/10/18 predniSONE [Deltasone*] 10 mg PO BID #14 tab 09/11/18 - Past Medical/Surgical History Has patient received pneumonia vaccine in the past: Yes Diabetic: Yes -: COPD, Oxygen dependent -: DM-2 -: HTN -: Hyperlipidemia -: RACHEL, Compliant with CPAP -: Obesity -: Tobacco abuse, Quit 3 years ago. -: GI Bleed -: Bowel surgery due to infection 1967 -: Stomach Surgery Nov 2015 -: Colonoscopy 2015 -: multiple oral surgeries Psychosocial/ Personal History: disabled, -31 years, 4 children - Family History Mother -: Heart disease, Hypertension, Diabetes - Social History Smoking Status: Former smoker Alcohol use: No CD- Drugs: No Caffeine use: Yes Place of Residence: Home Review of Systems 10-point ROS is otherwise unremarkable Physical Examination - Vital Signs Temperature: 98 F Blood Pressure: 108/75 Pulse: 75 Respirations: 20 Pulse Ox (%): 91 - Physical Exam General: Alert, In no apparent distress HEENT: Atraumatic, PERRLA, Mucous membr. moist/pink, EOMI, Sclerae nonicteric Neck: Supple, 2+ carotid pulse no bruit, No LAD, Without JVD or thyroid abnormality Respiratory: Clear to auscultation bilaterally, Normal air movement Cardiovascular: Regular rate/rhythm, Normal S1 S2 Gastrointestinal: Normal bowel sounds, No tenderness Musculoskeletal: No tenderness Integumentary: No rashes Neurological: Normal gait, Normal speech, Normal strength at 5/5 x4 extr, Normal tone, Normal affect Lymphatics: No axilla or inguinal lymphadenopathy - Studies Laboratory Data (last 24 hrs) 09/10/18 18:30: PT 12.3, INR 1.04 09/10/18 18:30: WBC 8.3, Hgb 16.0, Hct 47.4, Plt Count 215 09/10/18 18:30: Sodium 142, Potassium 4.1, BUN 15, Creatinine 0.80, Glucose 166 H, Magnesium 1.8, Total Bilirubin 0.6, AST 22, ALT 41, Alkaline Phosphatase 104 Microbiology Data (last 24 hrs): 09/10/18 18:46 Nasopharnyx Influenza Type A Antigen Screen - Final 09/10/18 18:46 Nasopharnyx Influenza Type B Antigen Screen - Final - Diagnosis (Problem(s)) (1) COPD exacerbation Onset Date: 06/10/15 Status: Resolved (2) Non-insulin dependent type 2 diabetes mellitus Onset Date: 08/10/15 Status: Chronic (3) Sleep apnea, obstructive Onset Date: 08/10/15 Status: Chronic (4) Tobacco abuse Status: Chronic (5) DM2 (diabetes mellitus, type 2) Onset Date: 02/03/14 Status: Chronic Qualifiers: Diabetes mellitus intermediate insulin use: unspecified watermelon inspector insulin use status Diabetes mellitus complication status: without complication Qualified Code(s): E11.9 - Type 2 diabetes mellitus without complications (6) HTN (hypertension) Onset Date: 07/30/15 Status: Chronic Qualifiers: Hypertension type: essential hypertension Qualified Code(s): I10 - Essential (primary) hypertension (7) Hyperlipemia Onset Date: 08/10/15 Status: Chronic Qualifiers: Hyperlipidemia type: unspecified Qualified Code(s): E78.5 - Hyperlipidemia , unspecified (8) Morbid obesity Onset Date: 03/04/15 Status: Chronic Treatment Summary: Overall during the hospital stay patient remained stable Patient was initially admitted to the hospital for COPD exacerbation. Was started on duo nebs, steroids, oxygen while here in the hospital. Patient had pulmonology consulted on the case. Pulmonology saw the patient recommended the patient to be discharged home under stable condition since he had marked improvement after being admitted here in the hospital. Patient was asked to continue taking steroids for next 7 days and will have followup appointment with pulmonology in the office in about 1-2 days post discharge. Patient was also asked to follow up with infectious disease since he is going to be started on steroids to make sure that he gets followed up for his liver abscess. Patient demonstrate understanding and thus was discharged home under stable condition. - Disposition Disposition: ROUTINE DISCHARGE Condition: GOOD Diet: Regular Activity: Ad hipolito
== END 2018-09-11 14:48 | disposition home health service (06) | DRG 190 ==
LOC: ER 18:19 → ERHOLD 19:52 → 2ND 20:41
PROVIDERS: ADMIT Family Medicine; ATTEND Family Medicine
DX: J44.1 Chronic obstructive pulmonary disease with (acute) exacerbation (principal); J96.21 Acute and chronic respiratory failure with hypoxia; Z99.81 Dependence on supplemental oxygen; E11.9 Type 2 diabetes mellitus without complications; I10 Essential (primary) hypertension; E78.5 Hyperlipidemia, unspecified; G47.33 Obstructive sleep apnea (adult) (pediatric); K21.9 Gastro-esophageal reflux disease without esophagitis; E66.01 Morbid (severe) obesity due to excess calories; Z68.32 Body mass index [BMI] 32.0-32.9, adult; Z79.84 Long term (current) use of oral hypoglycemic drugs; Z87.891 Personal history of nicotine dependence; Z88.0 Allergy status to penicillin
CPT/HCPCS: 36415; 71045; 80048; 80061; 80076; 81003; 81015; 82550; 82553; 82805; 82962; 83605; 83735; 83880; 84145; 84439; 84443; 84484; 85025; 85610; 87040; 87804; 93005; 94660; 94760; 96365; 96375; 99285; J1650; J2930; J7512; J7605

== ENCOUNTER 2018-11-05 07:29 | Day surgery (SDC) | payer OTHER ==
--- OUTSIDE RECORDS SUMMARY | 2018-11-05 07:33 | XMS REPORT | Clinical Summary ---
:1960 Author Organization [facility] Address [address] [place] [address] Care Team Providers Name Role Phone Unavailable [...] Lily Lopes Liver abscess (Primary Dx); 06/05/2018 Mrey Sampson MD Sepsis, due to unspecified organism (HCC); Lucy Cash Chronic bronchitis, unspecified chronic bronchitis type ( HCC); MD Eli Streptococcus viridans infection; Shameka Browning Recurrent bacteremia; MD Carolin Poor dentition; Streptococcal septicemia (HCC) after 11/04/2017 Social History Tobacco Use Types Packs/Day Years [...] procedure are in the results section. after 11/04/2017 Results EKG-SCANNED (06/07/2018 11:32 AM CDT) Narrative Performed At POC-Glucose meter (06/05/2018 5:38 PM CDT)Only the most recent of22 resultswithin the time period is included. POC-Glucose Meter 150 (H)Comment: TESTED AT 70 - 110 mg/dL [facility] [address] [facility] [id number] Specimen Blood Performing Organization Address City/State/Zipcode Phone Number [address] [address] [phone] abdomen/pelvis with IV contrast (06/05/2018 10:00 AM CDT) Specimen Narrative Performed At FINAL REPORT Dopios ABDOMINAL AND PELVIS CT DATED 06/05/2018 COMPARISON: [...] MD Report Verified Date/Time:06/05/2018 19:11:58 Reading Location: [facility] B1 C013Y CT Body Reading Room Procedure [...] Report Verified Date/Time: 06/05/2018 19:11:58 Reading Location: [facility] B1 C013Y CT Body Reading Room Performing Organization Address [facility] Phone Number [place] RIS ECG 12 lead (06/05/2018 8:15 AM CDT) Specimen Narrative Performed At Ventricular Rate 75 BPM GE MUSE Atrial Rate 75 BPM P-R Interval 144 ms QRS Duration 162 ms Q-T Interval 442 ms QTC Calculation(Bazett) 493 ms P [place] 72 degrees R [place] 266 degrees T [place] 42 degrees Normal sinus rhythm Right bundle [...] 442 ms QTC Calculation(Bazett) 493 ms P [place] 72 degrees R [place] 266 degrees T [place] 42 degrees Normal sinus rhythm Right bundle branch block Right superior QRS axis Nonspecific T wave abnormality Prolonged QT Abnormal ECG No previous ECGs available Confirmed by MD ANSARI YOCHAI ([id number]) on 06/05/2018 4:02:01 PM Performing Organization Address [facility] Phone Number [place] MUSE PT/aPTT (06/05/2018 3:51 AM CDT)Only the most recent of2 resultswithin the time period is included. Protime 14.5 11.7 - 14.7 seconds [facility] INR 1.1 <=5.9 [facility] PTT 32.6 22.5 - 36.0 seconds [facility] Specimen Blood Narrative Performed At RECOMMENDED COUMADIN/WARFARIN INR THERAPY [facility] RANGES STANDARD DOSE: 2.0 - 3.0 Includes: PROPHYLAXIS for venous thrombosis, systemic embolization; TREATMENT for venous thrombosis and/or pulmonary embolus. HIGH RISK: Target INR is 2.5-3.5 for patients with mechanical heart valves. Performing Organization Address City/State/Zipcode Phone Number [facility] [address] [place] [address] CENTER CBC with platelet count + automated diff (06/05/2018 3:51 AM CDT)Only the most recent of5 resultswithin the time period is included. WBC 6.3 3.5 - 10.5 K/L [facility] RBC 4.31 (L) 4.63 - 6.08 M/L [facility] Hemoglobin 12.4 (L) 13.7 - 17.5 GM/DL [facility] Hematocrit 41.2 40.1 - 51.0 % [facility] MCV 95.6 (H) 79.0 - 92.2 fL [facility] MCH 28.8 25.7 - 32.2 pg [facility] MCHC 30.1 (L) 32.3 - 36.5 GM/DL [facility] RDW 13.8 11.6 - 14.4 % [facility] Platelets 283 150 - 450 K/CU MM [facility] MPV 9.7 9.4 - 12.4 fL [facility] nRBC 0 0 - 0 /100 WBC [facility] % Neutros 65 % [facility] % Lymphs 21 % [facility] % Monos 9 % [facility] % Eos 4 % [facility] % Baso 1 % [facility] # Neutros 4.04 1.78 - 5.38 K/L [facility] # Lymphs 1.31 (L) 1.32 - 3.57 K/L [facility] # Monos 0.57 0.30 - 0.82 K/L [facility] # Eos 0.24 0.04 - 0.54 K/L [facility] # Baso 0.04 0.01 - 0.08 K/L [facility] Immature Granulocytes-Relative 1 0 - 1 % [facility] Specimen Blood Performing Organization Address City/State/Zipcode Phone Number [address] [address] [phone] [place] Basic Metabolic Panel (06/05/2018 3:51 AM CDT)Only the most recent of5 resultswithin the time period is included. Sodium 139 136 - 145 meq/L [facility] Potassium 4.0 3.5 - 5.1 meq/L [facility] Chloride 100 98 - 107 meq/L [facility] CO2 33 (H) 22 - 29 meq/L [facility] BUN 9 7 - 21 mg/dL [facility] Creatinine 0.72 0.57 - 1.25 mg/dL [facility] Glucose 162 (H) 70 - 105 mg/dL [facility] Calcium 9.3 8.4 - 10.2 mg/dL [facility] EGFR 113Comment: ESTIMATED GFR IS mL/min/1.73 sq m [facility] NOT ACCURATE CREATININE [facility] CLEARANCE IN PREDICTING GLOMERULAR FILTRATION RATE. ESTIMATED GFR IS NOT APPLICABLE FOR DIALYSIS PATIENTS. Specimen Blood Performing Organization Address City/State/Zipcode Phone Number [address] [address] [place] Lactic acid, venous (06/04/2018 4:05 AM CDT)Only the most recent of5 resultswithin the time period is included. Lactate, Venous 0.7Comment: Specimen 0.5 - 2.2 mmol/L [facility] hemolyzed [facility] Specimen Blood Performing Organization Address City/[facility]/Zipcode Phone Number [facility] [address] [place], [place] [phone] [place] Vancomycin level, trough (06/03/2018 11:43 PM CDT)Only the most recent of2 resultswithin the time period is included. Vancomycin Tr 15.2 10.0 - 20.0 ug/mL [facility] Specimen Blood Performing Organization Address City/[facility] Phone Number [facility] [address] [place] [address] [phone] [place] ECHOCARDIOGRAM REPORT - SCAN (06/03/2018 9:20 PM CDT) Narrative Performed At 2D Echo W/Doppler(CW/PW/Color) (06/02/2018 4:58 PM CDT) Ejection Fraction [facility] ECHO [facility] Specimen Narrative Performed At Transthoracic Echocardiography Report (TTE) [facility] Demographics Patient Name Pillo LENTZ of Study 06/02/2018 PJ [id number] GenderMale Visit Number [id number] Unknown [id number] Room Number 722 Number Date of Birth1960Referring Physician Lucy Cash Age58 year(s)[employer] [facility] AnalystIzoPhysician CHRIS Campos Procedure Type of [...] Study 06/02/2018 PJ Gender Male Visit Number [id number] Race Unknown Room Number 722 Number Date of 1960 Referring Physician Lucy Cash Age 58 year(s) [employer] [facility] Hospital Admissions Clerk Deric Holguin Interpreting Physician CHRIS Lawrence Procedure [...] TR Gradient: 45.89 mmHg Performing Organization Address City/[facility]/Zipcode Phone Number [facility] Phosphorus (06/02/2018 4:14 AM CDT)Only the most recent of3 resultswithin the time period is included. Phosphorus 3.9 2.3 - 4.7 mg/dL [facility] Specimen Blood Performing Organization Address City/[facility]/Zipcode Phone Number [place] [phone] [place] [address] [phone] CENTER Magnesium (06/02/2018 4:14 AM CDT)Only the most recent of3 resultswithin the time period is included. Magnesium 1.7 1.6 - 2.6 mg/dL [facility] Specimen Blood Performing Organization Address City/State/Zipcode Phone Number [facility] [address] [place] [address] CENTER US drainage with cath placement (06/01/2018 1:30 PM CDT) Specimen Narrative Performed At FINAL REPORT Dopios INDICATION: 58-year-old male with abdominal pain, fevers, and suspected liver abscess. Request for immature to percutaneous drainage catheter placement. COMPARISON: Outside facility CT May 30, 2018. TECHNIQUE: Ultrasound-guided placement of 10 Turkish drainage catheter in right hepatic lobe 4 [...] removed. Tract was dilated with a 6 Turkish, 8 Turkish, and then a 10 Turkish dilator. Then a 10 Turkish multisidehole drainage catheter was placed over the [...] minutes. IMPRESSION: Ultrasound guided placement of 10 Turkish drainage catheter in right hepatic lobe abscess. Signed: Zach Harris MD Report Verified Date/Time:05/31/2018 17:58:48 Reading Location: [facility] [id number] Ultrasound Reading Room Procedure Note Interface, External Ris In - 06/01/2018 2:00 PM CDT FINAL REPORT INDICATION: 58-year-old male with abdominal pain, fevers, and suspected liver abscess. Request for immature to percutaneous drainage catheter placement. COMPARISON: Outside facility CT May 30, 2018. TECHNIQUE: Ultrasound-guided placement of 10 Turkish drainage catheter in right hepatic lobe 4 [...] removed. Tract was dilated with a 6 Turkish, 8 Turkish, and then a 10 Turkish dilator. Then a 10 Turkish multisidehole drainage catheter was placed over the [...] minutes. IMPRESSION: Ultrasound guided placement of 10 Turkish drainage catheter in right hepatic lobe abscess. Signed: Zach Harris MD Report Verified Date/Time: 05/31/2018 17:58:48 Reading Location: [facility] [id number] Ultrasound Reading Room Performing Organization Address City/State/Zipcode Phone Number [facility] HIV-1 Antigen with HIV-1/2 Antibody (06/01/2018 3:45 AM CDT) HIV-1 Antigen with HIV 1&2 Nonreactive Nonreactive [facility] Specimen Blood Performing Organization Address City/State/Zipcode Phone Number [facility] [address] [place] [phone] [place] Hemoglobin A1c (06/01/2018 3:45 AM CDT) Hemoglobin A1C 7.5 (H) 4.3 - 6.1 % [facility] Specimen Blood Performing Organization Address City/[facility] Phone Number [facility] [address] [place] [address] [place] Hepatic function panel (06/01/2018 3:45 AM CDT)Only the most recent of3 resultswithin the time period is included. Protein, Total 7.9Comment: Specimen 6.0 - 8.3 gm/dL [facility] hemolyzed [facility] Albumin 3.7Comment: Specimen 3.5 - 5.0 g/dL [facility] slightly hemolyzed [facility] Total Bilirubin 0.4Comment: Specimen 0.2 - 1.2 mg/dL [facility] Bilirubin, Direct 0.2Comment: Specimen 0.1 - 0.5 mg/dL [facility] hemolyzed [facility] Alkaline Phosphatase 100 40 - 150 U/L [facility] AST 24Comment: Specimen 5 - 34 U/L [facility] slightly hemolyzed [facility] ALT 21Comment: Specimen 6 - 55 U/L [facility] slightly hemolyzed [facility] Specimen Blood Performing Organization Address City/[facility]/Zipcode Phone Number [facility] [address] [place] [phone] [place] Body fluid culture + gram stain (06/01/2018 12:04 AM CDT) Result No growth [facility] Gram Stain Result 2+ White blood cells seen [facility] Gram Stain Result No organisms seen [facility] Specimen Body Fluid Performing Organization Address [facility] Phone Number [facility] [address] [place] [address] [phone] [place] Blood Culture - Routine (Left Venipuncture) (05/30/2018 8:47 PM CDT)Only the most recent of2 resultswithin the time period is included. Result No growth in 5 days [facility] Specimen Blood Performing Organization Address [facility] Phone Number [facility] [address] [place] [address] [place] Procalcitonin (05/30/2018 8:37 PM CDT) Procalcitonin 2.54 (H) <0.05 ng/mL [facility] Specimen Blood Narrative Performed At SEPSIS RISK (ng/mL) [facility] Low:0.05-0.50 Intermediate: 0.51-2.00 High: >=2.01 Performing Organization Address [facility] Phone Number [facility] [address] [place] [phone] [place] after 11/04/2017 Insurance Payer Benefit Plan / Group Subscriber ID Type Phone Address MEDICARE MEDICARE A B xxxxxxxxxxx Medicare Advance Directives For more information, please contact:[address] [phone] Code Status Date Activated Date Inactivated Comments Full Code 05/30/2018 6:14 PM 06/06/2018 1:00 AM This code status was determined by: Patient
--- OUTSIDE RECORDS SUMMARY | 2018-11-05 07:34 | XMS REPORT ---
:1960 [facility] Address [address] [place] [address] Care Team Providers Name Role Phone DARRICK [...] MDReport Verified Date/Time: 06/05/2018 19:11:58 Reading Location: [facility] B1 C013Y CT Body Reading Room -GLUCOSE METER 2018-06-05 17:47:00 Test Item Value Reference Range Comments POC-GLUCOSE METER (BEAKER) (test 150 mg/dL 70-110 TESTED AT [facility] [address] [place] [address] owlb=4759) [facility] [address] POCT-GLUCOSE [id number] 11:41:00 Test Item Value Reference Range Comments POC-GLUCOSE METER (BEAKER) 244 mg/dL 70-110 TESTED AT [address] (test defd=5588) [facility] [address] BASIC METABOLIC [id number] 04:47:00 Test Item Value Reference Range Comments SODIUM (BEAKER) (test 139 meq/L 136-145 mexe=945) POTASSIUM (BEAKER) (test 4.0 meq/L 3.5-5.1 mica=476) CHLORIDE (BEAKER) (test 100 meq/L 98-107 syta=396) CO2 (BEAKER) (test 33 meq/L 22-29 vpgi=238) BLOOD UREA NITROGEN 9 mg/dL 7-21 (BEAKER) (test vkgx=236) CREATININE (BEAKER) (test 0.72 mg/dL 0.57-1.25 hnmr=462) GLUCOSE RANDOM (BEAKER) 162 mg/dL 70-105 (test rvhv=251) CALCIUM (BEAKER) (test 9.3 mg/dL 8.4-10.2 qitw=879) EGFR (BEAKER) (test 113 mL/min/1.73 sq m ESTIMATED GFR IS NOT nlmj=9616) ACCURATE CREATININE CLEARANCE IN PREDICTING GLOMERULAR FILTRATION RATE. ESTIMATED GFR IS NOT APPLICABLE FOR DIALYSIS PATIENTS. [id number] 04:32:00 Test Item Value Reference Range Comments PROTIME (BEAKER) (test vnrq=151) 14.5 seconds 11.7-14.7 INR (BEAKER) (test ixkp=467) 1.1 <=5.9 PARTIAL THROMBOPLASTIN TIME (BEAKER) (test 32.6 seconds 22.5-36.0 gwyc=575) RECOMMENDED COUMADIN/WARFARIN INR THERAPY RANGESSTANDARD DOSE: 2.0 - 3.0 Includes: PROPHYLAXIS forvenous thrombosis, systemic embolization; TREATMENT for venous thrombosis and/or pulmonary embolus.HIGH RISK: Target INR is 2.5-3.5 for patients with mechanical heart valves.CBC W/PLT COUNT & AUTO [id number] 04:16:00 Test Item Value Reference Range Comments WHITE BLOOD CELL COUNT (BEAKER) (test iteg=339) 6.3 K/ L 3.5-10.5 RED BLOOD CELL COUNT (BEAKER) (test htbl=208) 4.31 M/ L 4.63-6.08 HEMOGLOBIN (BEAKER) (test khjt=271) 12.4 GM/DL 13.7-17.5 HEMATOCRIT (BEAKER) (test hldy=194) 41.2 % 40.1-51.0 MEAN CORPUSCULAR VOLUME (BEAKER) (test yjlh=246) 95.6 fL 79.0-92.2 MEAN CORPUSCULAR HEMOGLOBIN (BEAKER) (test 28.8 pg 25.7-32.2 gsva=439) MEAN CORPUSCULAR HEMOGLOBIN CONC (BEAKER) (test 30.1 GM/DL 32.3-36.5 jqsx=724) RED CELL DISTRIBUTION WIDTH (BEAKER) (test 13.8 % 11.6-14.4 oooc=444) PLATELET COUNT (BEAKER) (test vdmh=931) 283 K/CU MM 150-450 MEAN PLATELET VOLUME (BEAKER) (test gjky=042) 9.7 fL 9.4-12.4 NUCLEATED RED BLOOD CELLS (BEAKER) (test 0 /100 WBC 0-0 jbfr=093) NEUTROPHILS RELATIVE PERCENT (BEAKER) (test 65 % cccn=790) LYMPHOCYTES RELATIVE PERCENT (BEAKER) (test 21 % xkfw=886) MONOCYTES RELATIVE PERCENT (BEAKER) (test 9 % nwgm=060) EOSINOPHILS RELATIVE PERCENT (BEAKER) (test 4 % nkhc=758) BASOPHILS RELATIVE PERCENT (BEAKER) (test 1 % cadh=763) NEUTROPHILS ABSOLUTE COUNT (BEAKER) (test 4.04 K/ L 1.78-5.38 ydbt=287) LYMPHOCYTES ABSOLUTE COUNT (BEAKER) (test 1.31 K/ L 1.32-3.57 wabs=936) MONOCYTES ABSOLUTE COUNT (BEAKER) (test 0.57 K/ L 0.30-0.82 ahoc=684) EOSINOPHILS ABSOLUTE COUNT (BEAKER) (test 0.24 K/ L 0.04-0.54 iplb=802) BASOPHILS ABSOLUTE COUNT (BEAKER) (test 0.04 K/ L 0.01-0.08 gzjw=635) IMMATURE GRANULOCYTES-RELATIVE PERCENT (BEAKER) 1 % 0-1 (test afsf=0172) BLOOD [id number] 02:00:00 Test Item Value Reference Range Comments CULTURE (BEAKER) (test cewo=6843) No growth in 5 days BLOOD [id number] 02:00:00 Test Item Value Reference Range Comments CULTURE (BEAKER) (test zhlu=9578) No growth in 5 days POCT-GLUCOSE [id number] 00:55:00 Test Item Value Reference Range Comments POC-GLUCOSE METER (BEAKER) 272 mg/dL 70-110 TESTED AT [address] (test bdyb=0448) [place] [address] POCT-GLUCOSE [id number] 17:16:00 Test Item Value Reference Range Comments POC-GLUCOSE METER (BEAKER) 104 mg/dL 70-110 TESTED AT [address] (test hxua=7010) [place] [address] POCT-GLUCOSE [id number] 11:30:00 Test Item Value Reference Range Comments POC-GLUCOSE METER (BEAKER) 150 mg/dL 70-110 TESTED AT [address] (test iawp=6417) [place] [address] BODY FLUID CULTURE + GRAM [id number] 09:42:00 Test Item Value Reference Range Comments CULTURE (BEAKER) (test iuiv=2881) No growth GRAM STAIN RESULT (BEAKER) (test 2+ White blood cells seen afrg=4032) GRAM STAIN RESULT (BEAKER) (test No organisms seen qrwd=17580) POCT-GLUCOSE [id number] 08:33:00 Test Item Value Reference Range Comments POC-GLUCOSE METER (BEAKER) 174 mg/dL 70-110 TESTED AT [address] (test jlro=3093) [place] [id number] BASIC METABOLIC [id number] 08:21:00 Test Item Value Reference Range Comments SODIUM (BEAKER) (test 139 meq/L 136-145 ptxx=874) POTASSIUM (BEAKER) (test 4.0 meq/L 3.5-5.1 xkfz=961) CHLORIDE (BEAKER) (test 99 meq/L 98-107 nkcd=425) CO2 (BEAKER) (test 32 meq/L 22-29 werl=833) BLOOD UREA NITROGEN 7 mg/dL 7-21 (BEAKER) (test wnia=214) CREATININE (BEAKER) (test 0.68 mg/dL 0.57-1.25 cytj=723) GLUCOSE RANDOM (BEAKER) 157 mg/dL 70-105 (test wxib=942) CALCIUM (BEAKER) (test 10.0 mg/dL 8.4-10.2 tfot=185) EGFR (BEAKER) (test 121 mL/min/1.73 sq m ESTIMATED GFR IS NOT ztic=1527) ACCURATE CREATININE CLEARANCE IN PREDICTING GLOMERULAR FILTRATION RATE. ESTIMATED GFR IS NOT APPLICABLE FOR DIALYSIS PATIENTS. LACTIC ACID, [id number] 04:43:00 Test Item Value Reference Range Comments LACTATE BLOOD VENOUS (2) 0.7 mmol/L 0.5-2.2 Specimen slightly hemolyzed (BEAKER) (test rliz=8868) CBC W/PLT COUNT & AUTO [id number] 04:33:00 Test Item Value Reference Range Comments WHITE BLOOD CELL COUNT (BEAKER) (test zxjc=598) 5.9 K/ L 3.5-10.5 RED BLOOD CELL COUNT (BEAKER) (test vimt=261) 4.16 M/ L 4.63-6.08 HEMOGLOBIN (BEAKER) (test utez=093) 11.8 GM/DL 13.7-17.5 HEMATOCRIT (BEAKER) (test bnzq=161) 38.7 % 40.1-51.0 MEAN CORPUSCULAR VOLUME (BEAKER) (test sbuk=974) 93.0 fL 79.0-92.2 MEAN CORPUSCULAR HEMOGLOBIN (BEAKER) (test 28.4 pg 25.7-32.2 runa=736) MEAN CORPUSCULAR HEMOGLOBIN CONC (BEAKER) (test 30.5 GM/DL 32.3-36.5 iqdt=606) RED CELL DISTRIBUTION WIDTH (BEAKER) (test 14.0 % 11.6-14.4 spcv=645) PLATELET COUNT (BEAKER) (test kayo=771) 252 K/CU MM 150-450 MEAN PLATELET VOLUME (BEAKER) (test plyz=023) 9.6 fL 9.4-12.4 NUCLEATED RED BLOOD CELLS (BEAKER) (test 0 /100 WBC 0-0 mfpp=075) NEUTROPHILS RELATIVE PERCENT (BEAKER) (test 64 % ackq=992) LYMPHOCYTES RELATIVE PERCENT (BEAKER) (test 23 % gpke=846) MONOCYTES RELATIVE PERCENT (BEAKER) (test 9 % sxvj=688) EOSINOPHILS RELATIVE PERCENT (BEAKER) (test 4 % kspu=002) BASOPHILS RELATIVE PERCENT (BEAKER) (test 1 % nbew=891) NEUTROPHILS ABSOLUTE COUNT (BEAKER) (test 3.79 K/ L 1.78-5.38 jwrm=781) LYMPHOCYTES ABSOLUTE COUNT (BEAKER) (test 1.34 K/ L 1.32-3.57 sifp=300) MONOCYTES ABSOLUTE COUNT (BEAKER) (test 0.50 K/ L 0.30-0.82 lnnv=664) EOSINOPHILS ABSOLUTE COUNT (BEAKER) (test 0.22 K/ L 0.04-0.54 sgqb=313) BASOPHILS ABSOLUTE COUNT (BEAKER) (test 0.03 K/ L 0.01-0.08 ulyg=327) IMMATURE GRANULOCYTES-RELATIVE PERCENT (BEAKER) 1 % 0-1 (test fkbr=2693) VANCOMYCIN LEVEL, [id number] 04:12:00 Test Item Value Reference Range Comments VANCOMYCIN TROUGH (BEAKER) (test dekv=353) 15.2 ug/mL 10.0-20.0 POCT-GLUCOSE [id number] 23:38:00 Test Item Value Reference Range Comments POC-GLUCOSE METER (BEAKER) 136 mg/dL 70-110 TESTED AT [address] (test ycuf=5226) [facility] [address] POCT-GLUCOSE [id number] 18:13:00 Test Item Value Reference Range Comments POC-GLUCOSE METER (BEAKER) 135 mg/dL 70-110 TESTED AT [address] (test kieo=3869) [facility] [address] POCT-GLUCOSE [id number] 13:08:00 Test Item Value Reference Range Comments POC-GLUCOSE METER (BEAKER) 199 mg/dL 70-110 TESTED AT [address] (test szix=0531) [facility] [address] POCT-GLUCOSE [id number] 09:23:00 Test Item Value Reference Range Comments POC-GLUCOSE METER (BEAKER) 160 mg/dL 70-110 TESTED AT [address] (test ovem=6097) [facility] [address] POCT-GLUCOSE [id number] 22:34:00 Test Item Value Reference Range Comments POC-GLUCOSE METER (BEAKER) 264 mg/dL 70-110 TESTED AT [address] (test qlgz=1722) [facility] [address] POCT-GLUCOSE [id number] 18:30:00 Test Item Value Reference Range Comments POC-GLUCOSE METER (BEAKER) 138 mg/dL 70-110 TESTED AT [address] (test xmqa=1043) [facility] [address] POCT-GLUCOSE [id number] 12:17:00 Test Item Value Reference Range Comments POC-GLUCOSE METER (BEAKER) 199 mg/dL 70-110 TESTED AT [address] (test bpav=7548) [facility] [address] POCT-GLUCOSE [id number] 07:43:00 Test Item Value Reference Range Comments POC-GLUCOSE METER (BEAKER) 184 mg/dL 70-110 TESTED AT [address] (test plbd=9982) [facility] [address] [id number] 05:48:00 Test Item Value Reference Range Comments PHOSPHORUS (BEAKER) (test sxpb=876) 3.9 mg/dL 2.3-4.7 [id number] 05:48:00 Test Item Value Reference Range Comments MAGNESIUM (BEAKER) (test riwi=428) 1.7 mg/dL 1.6-2.6 POCT-GLUCOSE [id number] 21:30:00 Test Item Value Reference Range Comments POC-GLUCOSE METER (BEAKER) 207 mg/dL 70-110 TESTED AT [address] (test ovau=6876) [facility] [address] POCT-GLUCOSE [id number] 18:48:00 Test Item Value Reference Range Comments POC-GLUCOSE METER (BEAKER) 228 mg/dL 70-110 TESTED AT [address] (test kdko=5237) [place] [id number] POCT-GLUCOSE [id number] 14:57:00 Test Item Value Reference Range Comments POC-GLUCOSE METER (BEAKER) 173 mg/dL 70-110 TESTED AT [address] (test sota=9062) [place] [address] VANCOMYCIN LEVEL, [id number] 12:16:00 Test Item Value Reference Range Comments VANCOMYCIN TROUGH (BEAKER) (test hliy=219) 8.5 ug/mL 10.0-20.0 HEMOGLOBIN [id number] 11:05:00 Test Item Value Reference Range Comments HEMOGLOBIN A1C (BEAKER) (test yfka=326) 7.5 % 4.3-6.1 POCT-GLUCOSE [id number] 08:31:00 Test Item Value Reference Range Comments POC-GLUCOSE METER (BEAKER) 168 mg/dL 70-110 TESTED AT [address] (test fuqa=1014) [place] [address] HIV-1 ANTIGEN WITH HIV-1/2 [id number] 05:14:00 Test Item Value Reference Range Comments HIV-1 ANTIGEN WITH HIV 1\T\2 ANTIBODY (2) Nonreactive Nonreactive (BEAKER) (test dkyn=6532) LACTIC ACID, [id number] 04:59:00 Test Item Value Reference Range Comments LACTATE BLOOD VENOUS (2) 0.7 mmol/L 0.5-2.2 Specimen slightly hemolyzed (BEAKER) (test nfnh=5454) [id number] 04:33:00 Test Item Value Reference Range Comments MAGNESIUM (BEAKER) (test 1.9 mg/dL 1.6-2.6 Specimen slightly hemolyzed lllt=715) [id number] 04:33:00 Test Item Value Reference Range Comments PHOSPHORUS (BEAKER) (test 3.6 mg/dL 2.3-4.7 Specimen slightly hemolyzed olsx=754) BASIC METABOLIC [id number] 04:33:00 Test Item Value Reference Range Comments SODIUM (BEAKER) (test 138 meq/L 136-145 edmc=127) POTASSIUM (BEAKER) (test 4.1 meq/L 3.5-5.1 Specimen slightly licr=541) hemolyzed CHLORIDE (BEAKER) (test 101 meq/L 98-107 gxhn=840) CO2 (BEAKER) (test 24 meq/L 22-29 ymse=485) BLOOD UREA NITROGEN 15 mg/dL 7-21 (BEAKER) (test ovwy=879) CREATININE (BEAKER) (test 0.76 mg/dL 0.57-1.25 Specimen slightly igce=634) hemolyzed GLUCOSE RANDOM (BEAKER) 164 mg/dL 70-105 (test xmgh=286) CALCIUM (BEAKER) (test 9.9 mg/dL 8.4-10.2 zqvv=370) EGFR (BEAKER) (test 106 mL/min/1.73 sq m ESTIMATED GFR IS NOT jnlj=8705) ACCURATE CREATININE CLEARANCE IN PREDICTING GLOMERULAR FILTRATION RATE. ESTIMATED GFR IS NOT APPLICABLE FOR DIALYSIS PATIENTS. HEPATIC FUNCTION [id number] 04:33:00 Test Item Value Reference Range Comments TOTAL PROTEIN (BEAKER) (test 7.9 gm/dL 6.0-8.3 Specimen slightly hemolyzed ghrd=060) ALBUMIN (BEAKER) (test 3.7 g/dL 3.5-5.0 Specimen slightly hemolyzed nxwa=6412) BILIRUBIN TOTAL (BEAKER) (test 0.4 mg/dL 0.2-1.2 Specimen slightly hemolyzed qcuy=285) BILIRUBIN DIRECT (BEAKER) (test 0.2 mg/dL 0.1-0.5 Specimen slightly hemolyzed qfpr=466) ALKALINE PHOSPHATASE (BEAKER) 100 U/L 40-150 (test eljw=091) AST (SGOT) (BEAKER) (test 24 U/L 5-34 Specimen slightly hemolyzed nkbr=880) ALT (SGPT) (BEAKER) (test 21 U/L 6-55 Specimen slightly hemolyzed lvqs=347) CBC W/PLT COUNT & AUTO [id number] 04:14:00 Test Item Value Reference Range Comments WHITE BLOOD CELL COUNT (BEAKER) (test xoqs=718) 10.8 K/ L 3.5-10.5 RED BLOOD CELL COUNT (BEAKER) (test akeb=914) 4.31 M/ L 4.63-6.08 HEMOGLOBIN (BEAKER) (test gkpa=879) 12.6 GM/DL 13.7-17.5 HEMATOCRIT (BEAKER) (test lrwy=596) 39.5 % 40.1-51.0 MEAN CORPUSCULAR VOLUME (BEAKER) (test zfpg=214) 91.6 fL 79.0-92.2 MEAN CORPUSCULAR HEMOGLOBIN (BEAKER) (test 29.2 pg 25.7-32.2 arqy=772) MEAN CORPUSCULAR HEMOGLOBIN CONC (BEAKER) (test 31.9 GM/DL 32.3-36.5 jkxo=767) RED CELL DISTRIBUTION WIDTH (BEAKER) (test 14.0 % 11.6-14.4 aqfg=258) PLATELET COUNT (BEAKER) (test jttl=129) 284 K/CU MM 150-450 MEAN PLATELET VOLUME (BEAKER) (test xtlp=929) 10.1 fL 9.4-12.4 NUCLEATED RED BLOOD CELLS (BEAKER) (test 0 /100 WBC 0-0 qwke=247) NEUTROPHILS RELATIVE PERCENT (BEAKER) (test 75 % jiqr=605) LYMPHOCYTES RELATIVE PERCENT (BEAKER) (test 14 % poii=601) MONOCYTES RELATIVE PERCENT (BEAKER) (test 9 % glxz=813) EOSINOPHILS RELATIVE PERCENT (BEAKER) (test 2 % mtqm=341) BASOPHILS RELATIVE PERCENT (BEAKER) (test 0 % gbhh=729) NEUTROPHILS ABSOLUTE COUNT (BEAKER) (test 8.02 K/ L 1.78-5.38 ylez=353) LYMPHOCYTES ABSOLUTE COUNT (BEAKER) (test 1.50 K/ L 1.32-3.57 nurs=548) MONOCYTES ABSOLUTE COUNT (BEAKER) (test 1.00 K/ L 0.30-0.82 brpl=977) EOSINOPHILS ABSOLUTE COUNT (BEAKER) (test 0.16 K/ L 0.04-0.54 vetb=785) BASOPHILS ABSOLUTE COUNT (BEAKER) (test 0.02 K/ L 0.01-0.08 ebhb=879) IMMATURE GRANULOCYTES-RELATIVE PERCENT (BEAKER) 1 % 0-1 (test iumk=5864) POCT-GLUCOSE [id number] 22:35:00 Test Item Value Reference Range Comments POC-GLUCOSE METER (BEAKER) 165 mg/dL 70-110 TESTED AT [facility] [address] [facility] (test vwdu=9686) [place] [address] U/S, DRAINAGE, W/ CATH [id number] 17:58:00Reason for exam:->liver abscessFINAL REPORT INDICATION:58-year-old male with abdominal pain, fevers, and suspected liver abscess. Request for immature to percutaneous drainage catheter placement. COMPARISON:Outside facility CT May 30, 2018. TECHNIQUE:Ultrasound-guided placement of 10 Senegalese drainage catheter in right hepatic lobe 4 [...] removed. Tract was dilated with a 6 Senegalese, 8 Senegalese, and then a 10 Senegalese dilator. Then a 10 Senegalese multisidehole drainage catheter was placed over the [...] minutes. IMPRESSION: Ultrasound guided placement of 10 Senegalese drainage catheter in right hepatic lobe abscess. Signed: Monica Gibson MDReport Verified Date/Time: 05/31/2018 17:58:48 Reading Location: [place] [id number] Ultrasound Reading Room [id number] 13:02:00 Test Item Value Reference Range Comments PROTIME (BEAKER) (test ddrv=923) 14.8 seconds 11.7-14.7 INR (BEAKER) (test odzl=607) 1.1 <=5.9 PARTIAL THROMBOPLASTIN TIME (BEAKER) (test 36.1 seconds 22.5-36.0 pvsh=056) RECOMMENDED COUMADIN/WARFARIN INR THERAPY RANGESSTANDARD DOSE: 2.0 - 3.0 Includes: PROPHYLAXIS forvenous thrombosis, systemic embolization; TREATMENT for venous thrombosis and/or pulmonary embolus.HIGH RISK: Target INR is 2.5-3.5 for patients with mechanical heart valves.POCT-GLUCOSE [id number] 11:58:00 Test Item Value Reference Range Comments POC-GLUCOSE METER (BEAKER) 153 mg/dL 70-110 TESTED AT [address] (test caet=0332) [place] [id number] POCT-GLUCOSE [id number] 08:16:00 Test Item Value Reference Range Comments POC-GLUCOSE METER (BEAKER) 148 mg/dL 70-110 TESTED AT [address] (test qmmq=0853) [place] [id number] 05:32:00 Test Item Value Reference Range Comments PHOSPHORUS (BEAKER) (test swys=097) 2.3 mg/dL 2.3-4.7 [id number] 05:32:00 Test Item Value Reference Range Comments MAGNESIUM (BEAKER) (test vgvr=360) 1.7 mg/dL 1.6-2.6 BASIC METABOLIC [id number] 05:32:00 Test Item Value Reference Range Comments SODIUM (BEAKER) (test 139 meq/L 136-145 lgat=954) POTASSIUM (BEAKER) (test 3.8 meq/L 3.5-5.1 udrw=622) CHLORIDE (BEAKER) (test 100 meq/L 98-107 khix=405) CO2 (BEAKER) (test 27 meq/L 22-29 voas=118) BLOOD UREA NITROGEN 11 mg/dL 7-21 (BEAKER) (test cvty=045) CREATININE (BEAKER) (test 0.79 mg/dL 0.57-1.25 xsts=581) GLUCOSE RANDOM (BEAKER) 178 mg/dL 70-105 (test npod=037) CALCIUM (BEAKER) (test 10.0 mg/dL 8.4-10.2 pfqy=324) EGFR (BEAKER) (test 101 mL/min/1.73 sq m ESTIMATED GFR IS NOT dsju=1037) ACCURATE CREATININE CLEARANCE IN PREDICTING GLOMERULAR FILTRATION RATE. ESTIMATED GFR IS NOT APPLICABLE FOR DIALYSIS PATIENTS. HEPATIC FUNCTION [id number] 05:32:00 Test Item Value Reference Range Comments TOTAL PROTEIN (BEAKER) (test pkej=761) 8.2 gm/dL 6.0-8.3 ALBUMIN (BEAKER) (test buxc=0741) 3.9 g/dL 3.5-5.0 BILIRUBIN TOTAL (BEAKER) (test kwbv=240) 0.7 mg/dL 0.2-1.2 BILIRUBIN DIRECT (BEAKER) (test ujov=369) 0.4 mg/dL 0.1-0.5 ALKALINE PHOSPHATASE (BEAKER) (test cduf=022) 98 U/L 40-150 AST (SGOT) (BEAKER) (test cqyz=914) 18 U/L 5-34 ALT (SGPT) (BEAKER) (test nqxt=859) 20 U/L 6-55 LACTIC ACID, [id number] 05:11:00 Test Item Value Reference Range Comments LACTATE BLOOD VENOUS (2) (BEAKER) (test 0.8 mmol/L 0.5-2.2 wkps=6274) CBC W/PLT COUNT & AUTO [id number] 05:00:00 Test Item Value Reference Range Comments WHITE BLOOD CELL COUNT (BEAKER) (test nmsq=072) 12.0 K/ L 3.5-10.5 RED BLOOD CELL COUNT (BEAKER) (test rsgi=718) 4.62 M/ L 4.63-6.08 HEMOGLOBIN (BEAKER) (test afeb=719) 13.5 GM/DL 13.7-17.5 HEMATOCRIT (BEAKER) (test rssy=139) 41.7 % 40.1-51.0 MEAN CORPUSCULAR VOLUME (BEAKER) (test qzhg=196) 90.3 fL 79.0-92.2 MEAN CORPUSCULAR HEMOGLOBIN (BEAKER) (test 29.2 pg 25.7-32.2 petb=677) MEAN CORPUSCULAR HEMOGLOBIN CONC (BEAKER) (test 32.4 GM/DL 32.3-36.5 ezxu=032) RED CELL DISTRIBUTION WIDTH (BEAKER) (test 14.1 % 11.6-14.4 hiby=564) PLATELET COUNT (BEAKER) (test absq=767) 217 K/CU MM 150-450 MEAN PLATELET VOLUME (BEAKER) (test kdbv=754) 10.3 fL 9.4-12.4 NUCLEATED RED BLOOD CELLS (BEAKER) (test 0 /100 WBC 0-0 zwtw=549) NEUTROPHILS RELATIVE PERCENT (BEAKER) (test 76 % ajhq=839) LYMPHOCYTES RELATIVE PERCENT (BEAKER) (test 13 % phyy=913) MONOCYTES RELATIVE PERCENT (BEAKER) (test 10 % trzr=001) EOSINOPHILS RELATIVE PERCENT (BEAKER) (test 1 % nmos=965) BASOPHILS RELATIVE PERCENT (BEAKER) (test 0 % lkec=845) NEUTROPHILS ABSOLUTE COUNT (BEAKER) (test 9.06 K/ L 1.78-5.38 tbuy=778) LYMPHOCYTES ABSOLUTE COUNT (BEAKER) (test 1.57 K/ L 1.32-3.57 hgnn=515) MONOCYTES ABSOLUTE COUNT (BEAKER) (test 1.16 K/ L 0.30-0.82 khqr=330) EOSINOPHILS ABSOLUTE COUNT (BEAKER) (test 0.09 K/ L 0.04-0.54 djmr=989) BASOPHILS ABSOLUTE COUNT (BEAKER) (test 0.02 K/ L 0.01-0.08 vdbb=860) IMMATURE GRANULOCYTES-RELATIVE PERCENT (BEAKER) 1 % 0-1 (test wshl=7726) CBC W/PLT COUNT & AUTO [id number] 01:52:00 Test Item Value Reference Range Comments WHITE BLOOD CELL COUNT (BEAKER) (test vhqb=664) 14.3 K/ L 3.5-10.5 RED BLOOD CELL COUNT (BEAKER) (test bevg=470) 4.50 M/ L 4.63-6.08 HEMOGLOBIN (BEAKER) (test qdqr=362) 13.0 GM/DL 13.7-17.5 HEMATOCRIT (BEAKER) (test trvk=352) 41.3 % 40.1-51.0 MEAN CORPUSCULAR VOLUME (BEAKER) (test psjd=843) 91.8 fL 79.0-92.2 MEAN CORPUSCULAR HEMOGLOBIN (BEAKER) (test 28.9 pg 25.7-32.2 uoiu=148) MEAN CORPUSCULAR HEMOGLOBIN CONC (BEAKER) (test 31.5 GM/DL 32.3-36.5 keiw=396) RED CELL DISTRIBUTION WIDTH (BEAKER) (test 14.0 % 11.6-14.4 ygkg=780) PLATELET COUNT (BEAKER) (test zdjg=814) 216 K/CU MM 150-450 MEAN PLATELET VOLUME (BEAKER) (test ehnm=076) 10.2 fL 9.4-12.4 NUCLEATED RED BLOOD CELLS (BEAKER) (test 0 /100 WBC 0-0 zxba=952) NEUTROPHILS RELATIVE PERCENT (BEAKER) (test 74 % vtkp=118) LYMPHOCYTES RELATIVE PERCENT (BEAKER) (test 13 % rygy=144) MONOCYTES RELATIVE PERCENT (BEAKER) (test 11 % igum=894) EOSINOPHILS RELATIVE PERCENT (BEAKER) (test 0 % bmtb=035) BASOPHILS RELATIVE PERCENT (BEAKER) (test 0 % spgl=530) NEUTROPHILS ABSOLUTE COUNT (BEAKER) (test 10.63 K/ L 1.78-5.38 cybw=964) LYMPHOCYTES ABSOLUTE COUNT (BEAKER) (test 1.84 K/ L 1.32-3.57 bpxf=639) MONOCYTES ABSOLUTE COUNT (BEAKER) (test 1.62 K/ L 0.30-0.82 rpyu=439) EOSINOPHILS ABSOLUTE COUNT (BEAKER) (test 0.05 K/ L 0.04-0.54 lwio=956) BASOPHILS ABSOLUTE COUNT (BEAKER) (test 0.02 K/ L 0.01-0.08 ysft=368) IMMATURE GRANULOCYTES-RELATIVE PERCENT (BEAKER) 1 % 0-1 (test dfns=8647) BASIC METABOLIC [id number] 01:28:00 Test Item Value Reference Range Comments SODIUM (BEAKER) (test 137 meq/L 136-145 jhqs=727) POTASSIUM (BEAKER) (test 3.6 meq/L 3.5-5.1 ldsz=640) CHLORIDE (BEAKER) (test 99 meq/L 98-107 govl=465) CO2 (BEAKER) (test 27 meq/L 22-29 nmud=716) BLOOD UREA NITROGEN 12 mg/dL 7-21 (BEAKER) (test eaas=808) CREATININE (BEAKER) (test 0.81 mg/dL 0.57-1.25 sztm=154) GLUCOSE RANDOM (BEAKER) 137 mg/dL 70-105 (test qett=756) CALCIUM (BEAKER) (test 9.3 mg/dL 8.4-10.2 ldhb=499) EGFR (BEAKER) (test 99 mL/min/1.73 sq m ESTIMATED GFR IS NOT qdjy=2252) ACCURATE CREATININE CLEARANCE IN PREDICTING GLOMERULAR FILTRATION RATE. ESTIMATED GFR IS NOT APPLICABLE FOR DIALYSIS PATIENTS. HEPATIC FUNCTION [id number] 01:28:00 Test Item Value Reference Range Comments TOTAL PROTEIN (BEAKER) (test ykrw=580) 7.9 gm/dL 6.0-8.3 ALBUMIN (BEAKER) (test kuic=6188) 3.8 g/dL 3.5-5.0 BILIRUBIN TOTAL (BEAKER) (test jsvk=644) 0.9 mg/dL 0.2-1.2 BILIRUBIN DIRECT (BEAKER) (test nabe=321) 0.4 mg/dL 0.1-0.5 ALKALINE PHOSPHATASE (BEAKER) (test dwap=200) 94 U/L 40-150 AST (SGOT) (BEAKER) (test agcp=972) 14 U/L 5-34 ALT (SGPT) (BEAKER) (test qfhh=818) 18 U/L 6-55 LACTIC ACID, [id number] 01:17:00 Test Item Value Reference Range Comments LACTATE BLOOD VENOUS (2) (BEAKER) (test 1.1 mmol/L 0.5-2.2 lngu=0630) POCT-GLUCOSE [id number] 22:23:00 Test Item Value Reference Range Comments POC-GLUCOSE METER (BEAKER) 142 mg/dL 70-110 TESTED AT [facility] [address] [facility] (test xnwb=2240) [facility] [address] [id number] 22:02:00 Test Item Value Reference Range Comments PROCALCITONIN (BEAKER) (test lbht=9531) 2.54 ng/mL <0.05 SEPSIS RISK (ng/mL)Low: 0.05-0.50Intermediate: 0.51-2.00High: & gt;=2.01LACTIC ACID, [id number] 21:28:00 Test Item Value Reference Range Comments LACTATE BLOOD VENOUS (2) 1.0 mmol/L 0.5-2.2 Specimen moderately hemolyzed (BEAKER) (test ohtr=2774)
[2018-11-05] MEDS ORDERED: NA CHLORIDE 0.9% 1,000 ML ONE (07:59)
[2018-11-05] MEDS ORDERED: PROPOFOL 200 MG/20 ML VIAL IV ONE ×3 (08:25→09:00)
[2018-11-05] MEDS ORDERED: Phenylephrine HCl 10 MG/ML 1 ML VIAL ONE (08:25)
[2018-11-05] MEDS ORDERED: NS 0.9% VIAL 30 ML ONE (08:26)
[2018-11-05] MEDS ORDERED: LIDOCAINE 1% MPF 5 ML VIAL ONE (08:26)
[2018-11-05] MEDS ORDERED: GLYCOPYRROLATE 0.2 MG/ML SYR ONE (08:26)
[2018-11-05 09:51] VITALS: TEMP 98.4; O2SAT 93
[2018-11-05 09:56] VITALS: BP 124/86
--- NOTE | 2018-11-06 00:30 | OP ---
Surgeon: James Fontaine MD Procedure To Be Performed: Esophagogastroduodenoscopy. Indication For Procedure: Upper abdominal pain. Plan For Anesthesia: Monitored anesthesia care. Complexity: Average. Technique: After obtaining informed consent from the patient, explaining risks and complications whi ch include, but are not limited to bleeding, infection, perforation, and anesthesia complications, pa tient was placed in the left lateral position and sedation was given. From then on, the scope was ad vanced into the mouth and carefully guided up to the third portion of the duodenum. After the comple tion of examination, scope and equipment were withdrawn and procedure terminated in a safe manner. Findings: Esophagus; no gross lesion seen in the entire esophagus, except for a slightly irregular Z -line. Biopsies taken. Stomach; mild patchy erythema seen in the body and antrum. Biopsies were ta bin. Duodenum; the bulb appeared to have granular mucosa. Scope was advanced to the third portion. Small intestinal biopsies taken. Complications: None. Tolerance To Anesthesia: Excellent. Postoperative Diagnoses: Gastritis, irregular Z-line. Plan: 1.Start on PPI once a day. Await pathology results. 2.Follow up in the GI Clinic in 2 weeks. US/MODL Voice ID: [id number] Report ID: [id number]
--- NOTE | 2018-11-06 00:33 | OP ---
Surgeon: James Fontaine MD Procedure Performed: Colonoscopy. Indication For Procedure: Surveillance, history of polyps. Plan For Anesthesia: Monitored anesthesia care. Complexity: Average. Technique: After obtaining informed consent from the patient and explaining risks and complications, which include, but are not limited to bleeding, infection, perforation, and anesthesia complication, patient was placed in left lateral position and sedation was given. From then on digital rectal exa m was performed and then scope advanced into the rectum and carefully guided up till the cecum. The cecum was identified with the ileocecal valve and appendiceal orifice. Subsequently, scope gradually withdrawn while carefully examining the mucosa. The quality of prep according to [place] prep score was 2 + 2 + 2, which is equal to 6/9. Scope withdrawal time was 15 minutes. Findings: Digital rectal exam was normal. In the rectum, 2 polyps around 4 mm in size, sessile in n ature were seen. These were removed by hot biopsy. In the sigmoid, several small diverticula seen, also seen was a 5 mm polyp, which was removed by hot biopsy. In the descending colon, a 6 mm sessile polyp was seen. This was removed with hot biopsy. In the transverse colon, a diminutive polyp was seen. This was removed by cold forceps polypectomy. In the cecum, 3-4 mm sessile polyp was seen. T his was removed with hot biopsy. Complications: None. Tolerance To Anesthesia: Excellent. Postoperative Diagnoses: Polyps, diverticulosis. Plan: 1.Await pathology results. 2.Follow up in the GI clinic in 2 weeks. 3.High-fiber diet. 4.Repeat colonoscopy in 3-5 years based on pathology. US/MODL Voice ID: [id number] Report ID: [id number]
== END 2018-11-05 10:19 | disposition home or self-care (01) ==
LOC: OR 07:29
PROVIDERS: ATTEND Internal Medicine Gastroenterology
PROC: 0DBP8ZX Excision of Rectum, Via Natural or Artificial Opening Endoscopic, Diagnostic (ICD-10-PCS; 2018-11-05)
PROC: 0DBM8ZX Excision of Descending Colon, Via Natural or Artificial Opening Endoscopic, Diagnostic (ICD-10-PCS; 2018-11-05)
PROC: 0DBL8ZX Excision of Transverse Colon, Via Natural or Artificial Opening Endoscopic, Diagnostic (ICD-10-PCS; 2018-11-05)
PROC: 0DB38ZX Excision of Lower Esophagus, Via Natural or Artificial Opening Endoscopic, Diagnostic (ICD-10-PCS; 2018-11-05)
PROC: 0DB88ZX Excision of Small Intestine, Via Natural or Artificial Opening Endoscopic, Diagnostic (ICD-10-PCS; 2018-11-05)
PROC: 0DB68ZX Excision of Stomach, Via Natural or Artificial Opening Endoscopic, Diagnostic (ICD-10-PCS; 2018-11-05)
PROC: 0DBH8ZX Excision of Cecum, Via Natural or Artificial Opening Endoscopic, Diagnostic (ICD-10-PCS; principal; 2018-11-05 09:00)
PROC: 0DBN8ZX Excision of Sigmoid Colon, Via Natural or Artificial Opening Endoscopic, Diagnostic (ICD-10-PCS; 2018-11-05 09:00)
DX: K29.50 Unspecified chronic gastritis without bleeding (principal); Z12.11 Encounter for screening for malignant neoplasm of colon; D12.3 Benign neoplasm of transverse colon; K63.5 Polyp of colon; K62.1 Rectal polyp; K57.30 Diverticulosis of large intestine without perforation or abscess without bleeding; E11.9 Type 2 diabetes mellitus without complications; I10 Essential (primary) hypertension; K76.0 Fatty (change of) liver, not elsewhere classified; K76.9 Liver disease, unspecified; G47.33 Obstructive sleep apnea (adult) (pediatric); J44.9 Chronic obstructive pulmonary disease, unspecified; I81 Portal vein thrombosis; M19.90 Unspecified osteoarthritis, unspecified site; E66.9 Obesity, unspecified; Z79.84 Long term (current) use of oral hypoglycemic drugs; Z86.010 Personal history of colon polyps; Z88.0 Allergy status to penicillin; Z82.49 Family history of ischemic heart disease and other diseases of the circulatory system
CPT/HCPCS: 88312; 82962; 88305; 45384; 45380; 43239; J2704 ×2; J2370; J7030

== ENCOUNTER 2018-11-30 18:47 | Emergency (ER) | payer OTHER ==
[2018-11-30] MEDS ORDERED: IPRATROPIUM BROM 0.5MG/2.5ML ONE (19:46)
[2018-11-30] MEDS ORDERED: ALBUTEROL 2.5 MG/3 ML NEB SOL ONE (19:46)
[2018-11-30] MEDS ORDERED: predniSONE 20 MG TAB ONE (19:46)
--- NOTE | 2018-11-30 20:38 | ER ---
Nurse's Notes [facility] Name: Salas Srivastava Age: 58 yrs Sex: Male : 1960 Arrival Date: 11/30/2018 Time: 18:58 Bed 28 Private MD: Diagnosis: Essential (primary) hypertension;Chronic obstructive pulmonary disease, unspecified Presentation: 11/30 18:58 Presenting complaint: EMS states: Pt took his blood pressure at home and saw that it tr5 was elevated higher than usual. Reports is was in the 170/110s. Transition of care: patient was not received from another setting of care. Onset of symptoms was November 30, 2018. Risk Assessment: Do you want to hurt yourself or someone else? Patient reports no desire to harm self or others. Initial Sepsis Screen: Does the patient meet any 2 criteria? No. Patient's initial sepsis screen is negative. Does the patient have a suspected source of infection? No. Patient's initial sepsis screen is negative. Care prior to arrival: Oxygen administered. via nasal cannula. 18:58 Method Of Arrival: EMS: [facility] tr5 18:58 Acuity: ESVIN 3 tr5 Triage Assessment: 21:22 General:. tr5 Historical: - Allergies: 19:02 PENICILLINS; tr5 - Home Meds: 19:02 prednisone Oral [Active]; pantoprazole 40 mg oral TbEC [Active]; Albuterol Inhl tr5 [Active]; metformin 1,000 mg Oral tab 1 tab 2 times per day [Active]; lisinopril 5 mg Oral tab 1 tab once daily for Hypertension [Active]; glimepiride 2 mg Oral tab [Active]; amlodipine 10 mg tab 1 tab once daily [Active]; acetazolamide 125 mg Oral tab [Active]; 19:14 carvedilol oral oral [Active]; tr5 - PMHx: 19:02 COPD; Diabetes - NIDDM; Hypertension; Sleep Apnea; ADD/ADHD; Anxiety; tr5 - Immunization history:: Adult Immunizations up to date. - Social history:: Smoking status: Patient/guardian denies using tobacco, the patient reports quitting approximately 4 years ago. - Ebola Screening: : No symptoms or risks identified at this time. Screenin:11 Abuse screen: Denies threats or abuse. Nutritional screening: No deficits noted. tr5 Tuberculosis screening: No symptoms or risk factors identified. Fall Risk None identified. Assessment: 19:11 General: Appears in no apparent distress. Pain: Denies pain. Neuro: Level of tr5 Consciousness is awake, alert, obeys commands, Oriented to person, place, time, Rod Bending Machine Operator are equal bilaterally Moves all extremities. Cardiovascular: Heart tones present Capillary refill < 3 seconds. Respiratory: Airway is patent Respiratory effort is even, unlabored, Respiratory pattern is regular, symmetrical. GI: No signs and/or symptoms were reported involving the gastrointestinal system. : No signs and/or symptoms were reported regarding the genitourinary system. EENT: No signs and/or symptoms were reported regarding the EENT system. Derm: No signs and/or symptoms reported regarding the dermatologic system. Musculoskeletal: No signs and/or symptoms reported regarding the musculoskeletal system. 20:00 Reassessment: Patient appears in no apparent distress at this time. Patient and/or tr5 family updated on plan of care and expected duration. Pain level reassessed. Patient is alert, oriented x 3, equal unlabored respirations, skin warm/dry/pink. 21:09 Reassessment: Patient appears in no apparent distress at this time. Patient and/or tr5 family updated on plan of care and expected duration. Pain level reassessed. Patient is alert, oriented x 3, equal unlabored respirations, skin warm/dry/pink. Patient states symptoms have improved. Vital Signs: 19:02 BP 140 / 84; Pulse 88; Resp 17; Temp 97(O); Pulse Ox 98% on 3 lpm NC; tr5 19:48 BP 165 / 94; Pulse 87; Resp 16; Temp 98.4(O); Pulse Ox 97% ; lt1 20:26 BP 166 / 95; Pulse 86; Resp 19; Pulse Ox 98% on 3% Nebulizer Mask; tr5 ED Course: 18:58 Patient arrived in ED. tr5 19:01 Triage completed. tr5 19:04 Matt Rojas NP [facility]. pm1 19:04 Jimmy Benitez MD is Attending Physician. pm1 19:11 Fall risk band placed. Bed in low position. Call light in reach. Side rails up X 1. tr5 equipment monitor phototypesetting on. Pulse ox on. NIBP on. 19:13 Lambert Floyd, RN is Primary Nurse. tr5 21:21 Arm band placed on. tr5 21:21 No provider procedures requiring assistance completed. Patient did not have IV access tr5 during this emergency room visit. Administered Medications: 19:51 Drug: predniSONE 60 mg Route: PO; tr5 20:27 Follow up: Response: No adverse reaction tr5 19:51 Drug: Albuterol - atroVENT (3:1) (2.5 mg - 0.5 mg) 3 ml Route: Nebulizer; tr5 20:27 Follow up: Response: No adverse reaction tr5 Outcome: 20:38 Discharge ordered by MD. pm1 21:21 Discharged to home ambulatory. tr5 21:21 Condition: stable 21:21 Discharge instructions given to patient, Instructed on discharge instructions, follow up and referral plans. Demonstrated understanding of instructions, follow-up care. 21:24 Patient left the ED. tr5 Signatures: Matt Rojas NP TRAIN STATION SERVER pm1 Marine Felipe lt1 Lambert Floyd RN RN tr5
--- NOTE | 2018-11-30 20:39 | EDPHYS ---
Physician Documentation [facility] Name: Salas Srivastava Age: 58 yrs Sex: Male : 1960 Arrival Date: 11/30/2018 Time: 18:58 Bed 28 Private MD: ED Physician Jimmy Benitez HPI: 11/30 19:51 This 58 yrs old Male presents to ER via EMS with complaints of High Blood pm1 Pressure. 19:51 The patient has elevated blood pressure and discovered this at home, with a home pm1 device. Onset: The symptoms/episode began/occurred just prior to arrival. Modifying factors: The symptoms are aggravated by uncertain but just took his breathing treatment prior to checking his blood pressure. Associated signs and symptoms: The patient has no apparent associated signs or symptoms, Pertinent negatives: chest pain, dizziness, headache, lightheadedness, nausea, vomiting. Severity of symptoms: in the emergency department the blood pressure is improved. Patient with elevated blood pressure without any other symptoms. Patient has his baseline level of shortness of breath with COPD. Patient however mentioned that he would getting a breathing treatment in the ER because they seem to work better. Has prednisone 10 mg pills at home but has not taken them. Only as needed from Dr. Carranza . 19:51 Patient reports compliance with his BP medications but he is currently not taking pm1 carvedilol which was given just to get his blood pressure to a level that is acceptable for dental work. he is not certain if he was supposed to continue that medication. Historical: - Allergies: 19:02 PENICILLINS; tr5 - Home Meds: 19:02 prednisone Oral [Active]; pantoprazole 40 mg oral TbEC [Active]; Albuterol Inhl tr5 [Active]; metformin 1,000 mg Oral tab 1 tab 2 times per day [Active]; lisinopril 5 mg Oral tab 1 tab once daily for Hypertension [Active]; glimepiride 2 mg Oral tab [Active]; amlodipine 10 mg tab 1 tab once daily [Active]; acetazolamide 125 mg Oral tab [Active]; 19:14 carvedilol oral oral [Active]; tr5 - PMHx: 19:02 COPD; Diabetes - NIDDM; Hypertension; Sleep Apnea; ADD/ADHD; Anxiety; tr5 - Immunization history:: Adult Immunizations up to date. - Social history:: Smoking status: Patient/guardian denies using tobacco, the patient reports quitting approximately 4 years ago. - Ebola Screening: : No symptoms or risks identified at this time. ROS: 19:51 Constitutional: Negative for fever, chills, and weight loss, Eyes: Negative for injury, pm1 pain, redness, and discharge, ENT: Negative for injury, pain, and discharge, Neck: Negative for injury, pain, and swelling, Cardiovascular: Negative for chest pain, palpitations, and edema, Respiratory: Negative for shortness of breath, cough, wheezing, and pleuritic chest pain, Abdomen/GI: Negative for abdominal pain, nausea, vomiting, diarrhea, and constipation, Back: Negative for injury and pain, MS/Extremity: Negative for injury and deformity, Skin: Negative for injury, rash, and discoloration, Neuro: Negative for headache, weakness, numbness, tingling, and seizure. Exam: 19:51 Constitutional: This is a well developed, well nourished patient who is awake, alert, pm1 and in no acute distress. Head/Face: Normocephalic, atraumatic. Eyes: Pupils equal round and reactive to light, extra-ocular motions intact. Lids and lashes normal. Conjunctiva and sclera are non-icteric and not injected. Cornea within normal limits. Periorbital areas with no swelling, redness, or edema. ENT: Nares patent. No nasal discharge, no septal abnormalities noted. Tympanic membranes are normal and external auditory canals are clear. Oropharynx with no redness, swelling, or masses, exudates, or evidence of obstruction, uvula midline. Mucous membranes moist. Neck: Trachea midline, no thyromegaly or masses palpated, and no cervical lymphadenopathy. Supple, full range of motion without nuchal rigidity, or vertebral point tenderness. No Meningismus. Chest/axilla: Normal chest wall appearance and motion. Nontender with no deformity. No lesions are appreciated. Cardiovascular: Regular rate and rhythm with a normal S1 and S2. No gallops, murmurs, or rubs. Normal PMI, no JVD. No pulse deficits. 19:51 Abdomen/GI: Soft, non-tender, with normal bowel sounds. No distension or tympany. No guarding or rebound. No evidence of tenderness throughout. Back: No spinal tenderness. No costovertebral tenderness. Full range of motion. Skin: Warm, dry with normal turgor. Normal color with no rashes, no lesions, and no evidence of cellulitis. MS/ Extremity: Pulses equal, no cyanosis. Neurovascular intact. Full, normal range of motion. 19:51 Respiratory: the patient does not display signs of respiratory distress, Respirations: normal, Breath sounds: are clear throughout, no bronchial sounds, no rales, rhonchi, no wheezing. 19:51 Neuro: Orientation: is normal, Motor: is normal, moves all fours. Vital Signs: 19:02 BP 140 / 84; Pulse 88; Resp 17; Temp 97(O); Pulse Ox 98% on 3 lpm NC; tr5 19:48 BP 165 / 94; Pulse 87; Resp 16; Temp 98.4(O); Pulse Ox 97% ; lt1 20:26 BP 166 / 95; Pulse 86; Resp 19; Pulse Ox 98% on 3% Nebulizer Mask; tr5 MDM: 19:05 Patient medically screened. pm1 20:37 Data reviewed: vital signs. Data interpreted: Pulse oximetry: on room air is 98 %. pm1 Interpretation: normal. Counseling: I had a detailed discussion with the patient and/or guardian regarding: the historical points, exam findings, and any diagnostic results supporting the discharge/admit diagnosis, the need for outpatient follow up, to return to the emergency department if symptoms worsen or persist or if there are any questions or concerns that arise at home. Special discussion: I have referred the patient to see his PCP for further evaluation of high blood pressure. I discussed with the patient/guardian in detail that at this point there is no indication for admission to the hospital. It is understood, however, that if the symptoms persist or worsen the patient needs to return immediately for re-evaluation. Administered Medications: 19:51 Drug: predniSONE 60 mg Route: PO; tr5 20:27 Follow up: Response: No adverse reaction tr5 19:51 Drug: Albuterol - atroVENT (3:1) (2.5 mg - 0.5 mg) 3 ml Route: Nebulizer; tr5 20:27 Follow up: Response: No adverse reaction tr5 Disposition: 11/30/18 20:38 Discharged to Home. Impression: Essential (primary) hypertension, Chronic obstructive pulmonary disease, unspecified. - Condition is Stable. - Discharge Instructions: Chronic Obstructive Pulmonary Disease, Hypertension, How to Take Your Blood Pressure, [id number], DASH Eating Plan, Managing Your Hypertension. - Medication Reconciliation Form, Thank You Letter, Antibiotic Education, Prescription Opioid Use form. - Follow up: Emergency Department; When: As needed; Reason: Worsening of condition. Follow up: Private Physician; When: 2 - 3 days; Reason: Recheck today's complaints, Continuance of care, Re-evaluation by your physician. - Problem is new. - Symptoms have improved. Addendum: 12/02/2018 22:46 Co-signature as Attending Physician, Jimmy Benitez MD. g s Signatures: Matt Rojas, FELTING MACHINE OPERATOR HELPER FELTING MACHINE OPERATOR HELPER pm1 Jimmy Benitez MD MD Lambert Floyd RN RN tr5 Corrections: (The following items were deleted from the chart) 11/30 21:23 20:38 11/30/2018 20:38 Discharged to Home. Impression: Essential (primary) tr5 hypertension; Chronic obstructive pulmonary disease, unspecified. Condition is Stable. Forms are Medication Reconciliation Form, Thank You Letter, Antibiotic Education, Prescription Opioid Use. Follow up: Emergency Department; When: As needed; Reason: Worsening of condition. Follow up: Private Physician; When: 2 - 3 days; Reason: Recheck today's complaints, Continuance of care, Re-evaluation by your physician. Problem is new. Symptoms have improved. pm1 21:24 21:23 11/30/2018 20:38 Discharged to Home. Impression: Essential (primary) tr5 hypertension; Chronic obstructive pulmonary disease, unspecified. Condition is Stable. Discharge Instructions: Chronic Obstructive Pulmonary Disease, Hypertension, How to Take Your Blood Pressure, [id number], DASH Eating Plan, Managing Your Hypertension. Forms are Medication Reconciliation Form, Thank You Letter, Antibiotic Education, Prescription Opioid Use. Follow up: Emergency Department; When: As needed; Reason: Worsening of condition. Follow up: Private Physician; When: 2 - 3 days; Reason: Recheck today's complaints, Continuance of care, Re-evaluation by your physician. Problem is new. Symptoms have improved. tr5
[2018-11-30 21:36] VITALS: TEMP 98.4
[2018-11-30 21:38] VITALS: BP 166/95; O2SAT 98
== END 2018-11-30 21:24 | disposition home or self-care (01) ==
LOC: ER 18:47
DX: I10 Essential (primary) hypertension (principal); J44.9 Chronic obstructive pulmonary disease, unspecified; Z88.0 Allergy status to penicillin; E11.8 Type 2 diabetes mellitus with unspecified complications; F90.9 Attention-deficit hyperactivity disorder, unspecified type
CPT/HCPCS: 94640; 99284; J7512

== ENCOUNTER 2024-04-15 13:12 | Emergency (ER) | payer OTHER, SELFPAY ==
[2024-04-15] MEDS ORDERED: ALBUTEROL 2.5 MG/3 ML NEB SOL ONE (14:10)
[2024-04-15] MEDS ORDERED: IPRATROPIUM BROM 0.5MG/2.5ML ONE (14:10)
[2024-04-15] MEDS ORDERED: CEFTRIAXONE 1000 MG/VIAL ONE ×2 (14:10→14:31)
[2024-04-15] MEDS ORDERED: METHYLPREDNISOLONE 125 MG INJ ONE (14:10)
[2024-04-15] MEDS ORDERED: NA CHLORIDE 0.9% 50 ML ONE (14:11)
--- NOTE | 2024-04-15 14:23 | RAD REPORT ---
EXAM: Chest Single View HISTORY: COUGH COMPARISON: 12/09/2019 FINDINGS: LUNGS/PLEURA: The lungs are clear. No pleural effusions or pneumothorax. No pulmonary edema. Calcifie d left lower lobe nodule. MEDIASTINUM: The mediastinal silhouette is within normal limits. CARDIAC: The cardiac silhouette is within normal limits. UPPER ABDOMEN: No significant abnormality. BONES: No acute abnormality. LINES/TUBES/OTHER: N/A IMPRESSION: No evidence of acute cardiopulmonary disease.
[2024-04-15 15:02] LABS: Absolute Eosinophils 0.1 K/uL (0-0.5); Absolute Monocytes 0.6 K/uL (0.1-1.3); Basophils % 0.5 % (0-1.3); Eosinophils % 1.7 % (0-4.4); Hematocrit 38.8 % (39.6-49.0); Hemoglobin 13.4 g/dL (13.6-17.9); Lymphocytes % 21.3 % (15.3-44.8); MCH 30.6 pg (27.0-35.0); MCHC 34.5 g/dL (32.0-36.0); MCV 88.7 fL (80-100); MPV 8.2 fL (7.6-11.3); Monocytes % 12.3 % (3.3-12.3); Neutrophils % 64.2 % (41.7-73.7); Nucleated Red Blood Cells % 0.1 % (0-0); Platelets 141 thou/uL (152-406); RBC Red Blood Cell Count 4.37 M/uL (4.33-5.43)
[2024-04-15 15:19] LABS: Anion Gap 5.1 mEq/L (5.0-15.0); Potassium 4.1 mEq/L (3.5-5.1); Troponin High Sensitivity 7.5 pg/mL (<58.9)
[2024-04-15 15:50] LABS: Influenza A Ag Negative; Influenza B Ag Negative; SARS-CoV-2 Antigen Rapid Res Negative (Negative)
--- NOTE | 2024-04-15 16:20 | ER ---
Nurse's Notes [facility] Name: Salas Srivastava Age: 64 yrs Sex: Male : 1960 Arrival Date: 04/15/2024 Time: 13:12 Bed 2 Private MD: Diagnosis: COPD/ Chronic obstructive pulmonary disease with (acute) exacerbation Presentation: 04/15 13:35 Chief complaint: Patient states: she has been having increased shortness of breath ap3 since . patient states "I know im three steps from the door from f*cking pneumonia." Patient states he has been having a cough that he can't cough anything up with. Patient reports he wears home oxygen but forgot it at home. patient was 84% on room air on arrival. Patient was placed on 3 liters nasal canula during triage and Spo2 came up to 94%. Coronavirus screen: Client presents with at least one sign or symptom that may indicate coronavirus-19. Ebola Screen: No symptoms or risks identified at this time. Initial Sepsis Screen: Does the patient meet any 2 criteria? RR > 20 per min. Does the patient have a suspected source of infection? No. Patient's initial sepsis screen is negative. Risk Assessment: Do you want to hurt yourself or someone else? Patient reports no desire to harm self or others. Onset of symptoms was April 11, 2024. 13:35 Method Of Arrival: Ambulatory ap3 13:35 Acuity: ESVIN 2 ap3 Triage Assessment: 13:39 General: Appears distressed, Behavior is cooperative, appropriate for age. Pain: Denies ap3 pain. Neuro: Level of Consciousness is awake, alert, obeys commands, Oriented to person, place, time, situation. Cardiovascular: Patient's skin is warm and dry. Respiratory: Reports shortness of breath cough that is Airway is patent Respiratory effort is unlabored, Respiratory pattern is regular, symmetrical, tachypnea Onset: The symptoms/episode began/occurred gradually, the patient has moderate shortness of breath. Historical: - Allergies: 13:38 PENICILLINS; ap3 - PMHx: 13:38 ADD/ADHD; Anxiety; COPD; Diabetes - NIDDM; Hypertension; Sleep Apnea; ap3 - Immunization history:: Client reports having NOT received the Covid vaccine. Flu vaccine is not up to date. - Infectious Disease History:: Denies. - Social history:: Smoking status: Patient/guardian denies using tobacco, the patient reports quitting approximately 6 years ago. Screenin:41 Abuse screen: Denies threats or abuse. Nutritional screening: No deficits noted. ap3 Tuberculosis screening: No symptoms or risk factors identified. 16:48 [facility] ED Fall Risk Assessment (Adult) History of falling in the last 3 months, ll1 including since admission No falls in past 3 months (0 pts) Confusion or Disorientation No (0 pts) Intoxicated or Sedated No (0 pts) Impaired Gait Yes (1 pt) Mobility Assist Device Used No (0 pt) Altered Elimination No (0 pt) Score/Fall Risk Level 0 - 2 = Low Risk Maintained a safe environment, Hourly rounding (assess needs \\T\\ fall precautionary measures) done. Assessment: 16:44 Reassessment: No changes from previously documented assessment. Patient and/or family ll1 updated on plan of care and expected duration. Pain level reassessed. Patient is alert, oriented x 3, equal unlabored respirations, skin warm/dry/pink. Patient states feeling better. Patient states symptoms have improved. 16:44 Reassessment: Called pt's daughter and son for ride home. Son, Ezio states he will be ss here to take him home shortly. Respiratory: Airway is patent Respiratory effort is even, unlabored. Vital Signs: 13:30 BP 169 / 97; Pulse 90; Resp 22; Pulse Ox 84% on R/A; Weight 122.02 kg; Height 5 ft. 11 ap3 in. ; 13:40 Pulse Ox 95% on 2 lpm NC; ap3 16:44 BP 138 / 83; Pulse 72; Resp 22; Pulse Ox 97% on 2 lpm NC; ll1 16:50 Temp 97.8; ll1 13:30 Body Mass Index 37.52 (122.02 kg, 180.34 cm) ap3 ED Course: 13:19 Patient arrived in ED. al6 13:31 Suhas Abebe MD is Attending Physician. ec2 13:38 Triage completed. ap3 13:41 Arm band placed on right wrist. ap3 14:01 Sonia Ricks, MIGUELITO is Primary Nurse. ss 14:14 Inserted saline lock: 20 gauge in right forearm, using aseptic technique. Flushed with ty 10 mL NS. 14:14 First set of blood cultures drawn by me. ty 14:18 XRAY Chest (1 view) In Process Unspecified. EDMS 14:48 Initial lab(s) drawn, by me, sent to lab. Second set of blood cultures drawn. Missed ty attempt(s): 22 gauge Bleeding controlled, band aid applied, catheter tip intact. 15:11 Troponin HS Sent. ty 15:11 NT PRO-BNP Sent. ty 15:11 CBC with Diff Sent. ty 15:11 Basic Metabolic Panel Sent. ty 15:11 Blood Culture Adult (2) Sent. ty 15:11 Lactate w/ 2H reflex if indic. Sent. ty 16:44 Patient has correct armband on for positive identification. Bed in low position. Client ll1 placed on continuous cardiac and pulse oximetry monitoring. NIBP monitoring applied. nuclear monitoring technician on. 16:44 No provider procedures requiring assistance completed. IV discontinued, intact, ll1 bleeding controlled, No redness/swelling at site. Pressure dressing applied. 16:48 Provided Education on: return to ED for worsening symptoms. ll1 Administered Medications: 14:52 Drug: MethylPrednisoLONE IVP 125 mg IVP once Route: IVP; Site: right forearm; ss 16:45 Follow up: Response: No adverse reaction 14:54 Drug: Rocephin IV 1 grams IV at calculated rate once; Given slow IV push per pharmacy instructions Route: IV; Rate: calculated rate; Site: right forearm; 16:49 Follow up: Response: No adverse reaction; IV Status: Completed infusion; IV Intake: [id number] 14:55 Drug: DuoNeb Nebulize (3:1) (2.5 mg - 0.5 mg) 3 ml Nebulizer once Route: Nebulizer; ss 16:45 Follow up: Response: No adverse reaction ss Medication: 16:44 VIS not applicable for this client. ss Intake: 16:49 IV: 50ml; Total: 50ml. ll1 Outcome: 16:20 Discharge ordered by . ec2 16:45 Discharged to home via wheelchair, ll1 16:45 Condition: improved 16:45 Discharge instructions given to patient, Instructed on discharge instructions, follow up and referral plans. medication usage, Demonstrated understanding of instructions, follow-up care, medications, Prescriptions given X 1, 16:53 Patient left the ED. ss Signatures: Dispatcher [facility] Sonia Ricks RN RN ss Marylu Thomas, RN RN ap3 Mounika Childers, RN RN ll1 Suhas Abebe MD MD ec2 Flako Goodman Alissa al6
--- NOTE | 2024-04-15 16:21 | EDPHYS ---
Physician Documentation [facility] Name: Salas Srivastava Age: 64 yrs Sex: Male : 1960 Arrival Date: 04/15/2024 Time: 13:12 Bed 2 Private MD: ED Physician Suhas Abebe HPI: 04/15 13:45 This 64 yrs old Male presents to ER via Ambulatory with complaints of ec2 Breathing Difficulty. 13:45 Patient arrives today for evaluation cough and cold symptoms. Patient with history of ec2 COPD, diabetes, hypertension arrives today for progressive shortness of breath. Is on inhalers as well as chronic steroid use. Patient reports no vomiting, no diarrhea.. Historical: - Allergies: 13:38 PENICILLINS; ap3 - PMHx: 13:38 ADD/ADHD; Anxiety; COPD; Diabetes - NIDDM; Hypertension; Sleep Apnea; ap3 - Immunization history:: Client reports having NOT received the Covid vaccine. Flu vaccine is not up to date. - Infectious Disease History:: Denies. - Social history:: Smoking status: Patient/guardian denies using tobacco, the patient reports quitting approximately 6 years ago. ROS: 13:45 Constitutional: as per hpi ec2 Exam: 13:45 Constitutional: GEN: NAD Head: atraumatic Eyes: EOMI Ears: External ears are ec2 normal. CV: regular rate LUNGS: Slight tachypnea, frequent scattered wheeze ABD: non-distended SKIN: no evidence of rashes MSK: no evidence of trauma Vital Signs: 13:30 BP 169 / 97; Pulse 90; Resp 22; Pulse Ox 84% on R/A; Weight 122.02 kg; Height 5 ft. 11 ap3 in. ; 13:40 Pulse Ox 95% on 2 lpm NC; ap3 16:44 BP 138 / 83; Pulse 72; Resp 22; Pulse Ox 97% on 2 lpm NC; ll1 16:50 Temp 97.8; ll1 13:30 Body Mass Index 37.52 (122.02 kg, 180.34 cm) ap3 MDM: 13:39 Medical Screening Exam initiated ec2 13:46 Data reviewed: vital signs, nurses notes. ED course: Patient arrives today for ec2 evaluation of shortness of breath. Examination yields cardiopulmonary findings above. Will obtain cardiac workup, chest x-ray. Empirically treat with ceftriaxone. Differential includes processes such as CHF, COPD, viral infection.. 14:05 ED course: EKG independently reviewed and interpreted by me, shows normal sinus rhythm, ec2 rate of 75, no acute ST segment elevations, intervals are nonactionable. Right bundle branch block noted.. 16:20 ED course: On reassessment patient is well-appearing no acute distress. Will discharge ec2 home. Return precautions given.. 04/15 13:44 Order name: Basic Metabolic Panel; Complete Time: 15:25 ec2 04/15 13:44 Order name: CBC with Diff; Complete Time: 15:15 ec2 04/15 13:44 Order name: NT PRO-BNP; Complete Time: 15:25 ec2 04/15 13:44 Order name: Troponin HS; Complete Time: 15:25 ec2 04/15 13:44 Order name: COVID-19 Ag + Flu A+B Ag; Complete Time: 16:14 ec2 04/15 13:45 Order name: Blood Culture Adult (2) ec2 04/15 13:45 Order name: Lactate w/ 2H reflex if indic.; Complete Time: 15:25 ec2 04/15 13:44 Order name: XRAY Chest (1 view); Complete Time: 14:47 ec2 04/15 13:44 Order name: Cardiac monitoring; Complete Time: 14:01 ec2 04/15 13:44 Order name: EKG - Nurse/Tech; Complete Time: 14:01 ec2 04/15 13:44 Order name: IV Saline Lock; Complete Time: 14:55 ec2 04/15 13:44 Order name: Labs collected and sent; Complete Time: 14:55 ec2 04/15 13:44 Order name: O2 Per Protocol; Complete Time: 14:01 ec2 04/15 13:44 Order name: O2 Sat Monitoring; Complete Time: 14:01 ec2 Administered Medications: 14:52 Drug: MethylPrednisoLONE IVP 125 mg IVP once Route: IVP; Site: right forearm; ss 16:45 Follow up: Response: No adverse reaction ss 14:54 Drug: Rocephin IV 1 grams IV at calculated rate once; Given slow IV push per pharmacy ss instructions Route: IV; Rate: calculated rate; Site: right forearm; 16:49 Follow up: Response: No adverse reaction; IV Status: Completed infusion; IV Intake: [id number] 14:55 Drug: DuoNeb Nebulize (3:1) (2.5 mg - 0.5 mg) 3 ml Nebulizer once Route: Nebulizer; 16:45 Follow up: Response: No adverse reaction ss Disposition Summary: 04/15/24 16:20 Discharge Ordered Notes: Location: Home ec2 Condition: Stable ec2 Diagnosis - COPD/ Chronic obstructive pulmonary disease with (acute) exacerbation ec2 Followup: ec2 - With: Private Physician - When: - Reason: Re-evaluation by your physician Discharge Instructions: - Discharge Summary Sheet ec2 - Chronic Obstructive Pulmonary Disease Exacerbation, [id number] ec2 Forms: - Medication Reconciliation Form ec2 - Antibiotic Education ec2 - Prescription Opioid Use ec2 - Patient Portal Instructions ec2 - Leadership Thank You Letter ec2 Prescriptions: - Prednisone 20 mg Oral Tablet - take 3 tablets ORAL route once daily for 5 days; 15 tablet; Refills: 0, Product ec2 Selection Permitted Signatures: Dispatcher [employer] EDSonia Wyatt RN RN Marylu Thomas RN RN ap3 Suhas Abebe MD MD ec2 Mounika Childers RN ll1 Corrections: (The following items were deleted from the chart) 13:45 13:45 BASIC METABOLIC PANEL+C.LAB.BRZ ordered. EDMS EDMS 13:45 13:45 CBC+H.LAB.BRZ ordered. EDMS EDMS 13:45 13:45 PROBNP+C.LAB.BRZ ordered. EDMS EDMS 13:45 13:45 Troponin High Sensitivity+C.LAB.BRZ ordered. EDMS EDMS 13:45 13:45 COVID-19 Ag + Flu A+B Ag+I.LAB.BRZ ordered. EDMS EDMS 13:45 13:45 Chest Single View+RAD.RAD.BRZ ordered. EDMS EDMS
[2024-04-15 17:11] VITALS: BP 138/83; O2SAT 97
[2024-04-15 17:13] VITALS: TEMP 97.8
== END 2024-04-15 16:53 | disposition home or self-care (01) ==
LOC: ER 13:12
DX: J44.1 Chronic obstructive pulmonary disease with (acute) exacerbation (principal); Z11.52 Encounter for screening for COVID-19
CPT/HCPCS: 36415; 71045; 80048; 83605; 83880; 84484; 85025; 87040; 87428; 93005; 96365; 96366; 96375; 99285; J0696; J2919; J7613; J7644